=== PATIENT | male | born 1990 | race African-American/Black ===

== ENCOUNTER 2021-10-19 11:46 | Emergency (ER) | payer MEDICAID ==
[~2021-10-19] VITALS: Ht 175.3 cm; Wt 65.8 kg
[~2021-10-19 11:46] MED LIST: CEPH-570 PO; ERGO500040 PO; FOLIC ACID PO; HYDR-4354 PO; LACT1CAP57 PO; METH4TAB21 PO
[2021-10-19] MEDS ORDERED: KETOROLAC TROMETHAMINE 30 MG INJ IVP ONE (12:15)
[2021-10-19] MEDS ORDERED: IV NS 1000 ML 1,000 ML IV ONE (12:15)
[2021-10-19] MEDS ORDERED: HYDROMORPHONE 1 MG/1 ML DISP.SYRIN IV ONE ×2 (12:15→14:00)
[2021-10-19] MEDS ORDERED: KETOROLAC TROMETHAMINE 30 MG INJ ONE (12:16)
[2021-10-19] MEDS ORDERED: HYDROMORPHONE 2 MG/1 ML DISP.SYRIN ONE ×2 (12:16→14:58)
[2021-10-19] MEDS ORDERED: ONDANSETRON 4 MG/2 ML VIAL ONE ×2 (12:25→14:58)
[2021-10-19 12:34] LABS: MEAN CORPUSCULAR HEMOGLOBIN 34.1 uug (23.8-33.4); PLATELET COUNT (AUTO) 287 K/uL (152-348)
[2021-10-19 12:44] LABS: ALANINE AMINOTRANSFERASE 78 U/L (16-63); ALKALINE PHOSPHATASE 109 U/L (50-136); ASPARTATE AMINOTRANSFERASE 108 U/L (15-37); BILIRUBIN,DIRECT 0.5 mg/dL (0.0-0.2); BILIRUBIN,TOTAL 3.8 mg/dL (0.2-1.0); CARBON DIOXIDE 27 mmol/L (21-32); CHLORIDE 104 mmol/L (98-107); CREATININE 0.6 mg/dL (0.6-1.3); GLUCOSE 87 mg/dL (74-106); POTASSIUM 3.7 mmol/L (3.5-5.1); TOTAL PROTEIN, SERUM 7.8 g/dL (6.4-8.2); UREA NITROGEN, BLOOD 8 mg/dL (7-18)
[2021-10-19] MEDS ORDERED: ONDANSETRON 4 MG/2 ML VIAL IV ONE ×2 (12:45→14:30)
--- NOTE | 2021-10-19 14:30 | NUR ---
NS infusion finished.
--- NOTE | 2021-10-19 17:12 | NUR ---
SPO2 staying in mid 90's. Removed IV intact, site okay, bandaged. Gave pt RX and d/c instructions, pt verbalized understanding.
[2021-10-20] MEDS ORDERED: OXYC30TA2 PO (16:29)
== END 2021-10-19 17:19 | disposition home or self-care (01) ==
LOC: ER 11:46
DX: D57.00 Hb-SS disease with crisis, unspecified (principal); Z91.014 Allergy to mammalian meats; D72.829 Elevated white blood cell count, unspecified
CPT/HCPCS: 99284; 96374; 96375; 96361; 80076; 80048; 85025; 36415; 96376; J1885; J2405 ×2; J1170 ×2; J7040; A4663

== ENCOUNTER 2021-10-20 16:05 | Inpatient (IN) | payer MEDICAID ==
[~2021-10-20] VITALS: Ht 175.3 cm; Wt 63.0 kg
[2021-10-20] MEDS ORDERED: OXYC30TA2 PO (16:29)
[2021-10-20] MEDS ORDERED: diphenhydrAMINE 50 MG/1 ML VIAL IV ONE (16:45)
[2021-10-20] MEDS ORDERED: IV NORMAL SALINE 1000 ML BAG IV ONE (16:45)
[2021-10-20] MEDS ORDERED: HYDROMORPHONE 1 MG/1 ML DISP.SYRIN IV ONE (16:45)
[2021-10-20] MEDS ORDERED: ONDANSETRON 4 MG/2 ML VIAL IV ONE (16:45)
[2021-10-20] MEDS ORDERED: KETOROLAC TROMETHAMINE 15 MG INJ IVP ONE (16:45)
[2021-10-20] MEDS ORDERED: diphenhydrAMINE 50 MG/1 ML VIAL ONE (16:55)
[2021-10-20] MEDS ORDERED: KETOROLAC TROMETHAMINE 15 MG INJ ONE (16:55)
[2021-10-20] MEDS ORDERED: ONDANSETRON 4 MG/2 ML VIAL ONE (16:55)
[2021-10-20] MEDS ORDERED: HYDROMORPHONE 2 MG/1 ML DISP.SYRIN ONE (16:55)
[2021-10-20 16:56] LABS: MEAN CORPUSCULAR HEMOGLOBIN 34.6 uug (23.8-33.4); PLATELET COUNT (AUTO) 335 K/uL (152-348)
[2021-10-20 16:58] LABS: HEMATOCRIT 19.5 % (36.7-47.1)
[2021-10-20 17:00] LABS: ALANINE AMINOTRANSFERASE 63 U/L (16-63); ALKALINE PHOSPHATASE 108 U/L (50-136); ASPARTATE AMINOTRANSFERASE 97 U/L (15-37); BILIRUBIN,DIRECT 0.5 mg/dL (0.0-0.2); BILIRUBIN,TOTAL 3.3 mg/dL (0.2-1.0); CARBON DIOXIDE 23 mmol/L (21-32); CHLORIDE 104 mmol/L (98-107); CREATININE 0.7 mg/dL (0.6-1.3); GLUCOSE 96 mg/dL (74-106); POTASSIUM 3.8 mmol/L (3.5-5.1); TOTAL PROTEIN, SERUM 7.7 g/dL (6.4-8.2); UREA NITROGEN, BLOOD 6 mg/dL (7-18)
--- NOTE | 2021-10-20 17:51 | NUR ---
Soledad mesa in [facility] - 10/20/21 at 1752 by ADILENE pt taken to CT.
--- NOTE | 2021-10-20 20:40 | NUR ---
Transfered to 3rd floor via gurny with no distress noted.
--- NOTE | 2021-10-20 20:45 | NUR ---
Admitted a 31 years old make with Dx of COVID + and Sickle Cell Crisis. Patient AAOx4. In no apparent distress. Denies any SOB on RA but reported his oxygen level goes down when he takes Dilaudid although he does not feel SOB, also reported by TURBINE TECHNICIAN Ortega. O2 sat at 90% on RA at this time. Place on o2 at 2LPM via NC PRN. RT aware. Reported occasional dry cough. No coughing noted at this time. Complaining of leonel. LE and low back pain,. Will provide pain medication per admission order. IV site on right hand intact and patent. COVID precaution initiated. Routine admission care done. Plan of care initiated. Safety measure initiated and call light within reached.
[2021-10-20 20:47] VITALS: BP 112/69
[2021-10-20] MEDS ORDERED: ACETAMINOPHEN 325 MG TABLET PO PRN (21:00)
[2021-10-20] MEDS ORDERED: HYDROMORPHONE 1 MG/1 ML DISP.SYRIN IV PRN (21:00)
[2021-10-20] MEDS ORDERED: MAGNESIUM HYDROXIDE 30 ML LIQUID UDC PO PRN (21:00)
[2021-10-20] MEDS ORDERED: TEMAZEPAM 15 MG CAPSULE PO PRN (21:00)
[2021-10-20] MEDS ORDERED: HYDROCODONE/APAP 10-325 MG TABLET PO PRN (21:00)
[2021-10-20] MEDS: IV NS 1000 ML 1,000 ML IV PRN (21:16)
[2021-10-21] MEDS: HYDROMORPHONE 1 MG/1 ML DISP.SYRIN IV PRN ×2 (03:49→07:59)
[2021-10-21 04:00] VITALS: BP 104/61
--- NOTE | 2021-10-21 05:41 | NUR ---
Patient given Dilaudid 1mg every 3 hours PRN for pain and effective. On O2 at 2LPM via NC in place. O2 sat at 92%. Denies any SOB. No coughing noted. IV site on right hand intact and patent. IVF infusing. Needs attended to and met. Safety measure maintained. COVID precaution maintained and call light within reached.
[2021-10-21] MEDS: PANTOPRAZOLE SODIUM 40 MG TABLET.DR PO SCH (06:09)
[2021-10-21 07:10] LABS: PLATELET COUNT (AUTO) 288 K/uL (152-348)
[2021-10-21 07:12] LABS: MEAN CORPUSCULAR HEMOGLOBIN 35.6 uug (23.8-33.4)
[2021-10-21 07:28] LABS: IRON, SERUM 72 ug/dL (50-175)
[2021-10-21 07:43] LABS: ALANINE AMINOTRANSFERASE 63 U/L (16-63); ALKALINE PHOSPHATASE 105 U/L (50-136); ASPARTATE AMINOTRANSFERASE 91 U/L (15-37); CARBON DIOXIDE 25 mmol/L (21-32); CHLORIDE 105 mmol/L (98-107); CREATININE 0.8 mg/dL (0.6-1.3); FERRITIN 465 ng/mL (26-388); GLUCOSE 122 mg/dL (74-106); MAGNESIUM 1.8 mg/dL (1.8-2.4); PHOSPHOROUS 3.5 mg/dL (2.5-4.9); POTASSIUM 3.8 mmol/L (3.5-5.1); UREA NITROGEN, BLOOD 7 mg/dL (7-18)
[2021-10-21] MEDS: FOLIC ACID 1 MG TABLET PO SCH (08:13)
[2021-10-21] MEDS: IV NS 1000 ML 1,000 ML IV PRN ×2 (08:35→20:38)
[2021-10-21] MEDS: HYDROMORPHONE 2 MG/1 ML DISP.SYRIN IV PRN ×4 (11:00→23:02)
[2021-10-21 12:00] VITALS: BP 104/65
[2021-10-21] MEDS ORDERED: FOLI1TAB94 PO (13:48)
[2021-10-21] MEDS ORDERED: HYDR500C2 PO (13:54)
[2021-10-21 16:00] VITALS: BP 109/61
[2021-10-21 18:41] LABS: NEUTROPHILS % (MANUAL) 0 % (42-75)
--- NOTE | 2021-10-21 20:00 | NUR ---
RECEIVED PATIENT IN BED. AAOX4. WITH IV ACCESS PATENT AND INTACT AND RUNNING NS AT 80CC/HR. PATIENT ON 0.5L O2 VIA NASAL CANNULA, HOWEVER, NOTED TO BE SATURATING AT 90%. PATIENT DENIES SOB. INCREASED O2 TO 2L, PATIENT NOW SATURATING AT 98%. SAFETY PRECAUTIONS INITIATED. WILL MONITOR.
[2021-10-21 20:46] VITALS: BP 98/57
[2021-10-21 22:00] VITALS: BP_SYST 102; BP_SYST 65; BP_DIAS 102; BP_DIAS 65
[2021-10-21] MEDS: HYDROXYUREA 500 MG CAPSULE PO SCH (22:00)
--- NOTE | 2021-10-21 22:00 | NUR ---
NEW MEDICATION ORDER OF HYDROXYUREA 500MG 1 CAPSULE, PO, Q8H. NOT IN CASSETTE OR OMNICELL. ASKED PICK UP OPERATOR HOWEVER, PICK UP OPERATOR ADVISED THAT FAMILY SHOULD BE BRINGING HOME MED. WILL ADVISE FAMILY TOMORROW.
[2021-10-22] MEDS: HYDROMORPHONE 2 MG/1 ML DISP.SYRIN IV PRN ×5 (03:18→20:58)
[2021-10-22 04:55] VITALS: BP 113/64
[2021-10-22] MEDS: HYDROXYUREA 500 MG CAPSULE PO SCH ×3 (05:21→21:56)
--- NOTE | 2021-10-22 05:23 | NUR ---
PATIENT SLEPT INTERMITTENTLY THROUGH THE NIGHT, WITH FREQUENT COMPLAINT OF BACK PAIN AND LOWER LEG PAIN. PRN DILAUDID GIVEN AND WAS EFFECTIVE. IVF INFUSING WELL. ON 2L O2, SATURATING WELL. PATIENT DENIES SOB, CHEST PAIN OR DIZZINESS AT THIS TIME. SAFETY PRECAUTIONS MAINTAINED.
[2021-10-22] MEDS: PANTOPRAZOLE SODIUM 40 MG TABLET.DR PO SCH (06:06)
[2021-10-22 06:46] LABS: MEAN CORPUSCULAR HEMOGLOBIN 34.8 uug (23.8-33.4); MEAN CORPUSCULAR VOLUME 94.3 fL (73.0-96.2); PLATELET COUNT (AUTO) 262 K/uL (152-348)
[2021-10-22 07:02] LABS: ALANINE AMINOTRANSFERASE 72 U/L (16-63); ALKALINE PHOSPHATASE 119 U/L (50-136); ASPARTATE AMINOTRANSFERASE 89 U/L (15-37); BILIRUBIN,TOTAL 3.9 mg/dL (0.2-1.0); CARBON DIOXIDE 31 mmol/L (21-32); CHLORIDE 105 mmol/L (98-107); CREATININE 0.6 mg/dL (0.6-1.3); GLUCOSE 90 mg/dL (74-106); MAGNESIUM 1.8 mg/dL (1.8-2.4); POTASSIUM 3.6 mmol/L (3.5-5.1); TOTAL PROTEIN, SERUM 7.1 g/dL (6.4-8.2); UREA NITROGEN, BLOOD 4 mg/dL (7-18)
[2021-10-22 07:07] LABS: HEMATOCRIT 19.6 % (36.7-47.1)
--- NOTE | 2021-10-22 07:09 | NUR ---
CRITICAL LAB RESULTS FROM LAB HGB: 7.2 AND HCT: 19.6. WILL ADVISE INCOMING SHIFT AND .
[2021-10-22] MEDS: FOLIC ACID 1 MG TABLET PO SCH (08:24)
[2021-10-22] MEDS: IV NS 1000 ML 1,000 ML IV PRN ×2 (08:43→20:33)
[2021-10-22] MEDS: ONDANSETRON 4 MG/2 ML VIAL IV PRN ×2 (09:34→17:00)
--- NOTE | 2021-10-22 10:31 | NUR ---
Pt is a/o x 4, complaints of pain reported this morning, administered PRN dilaudid. Pt had an episode of emesis x 1, administered zofran and pt reported improved nausea, no emesis after medication. Comfort measures provided, call light within reach. Will continue to monitor.
[2021-10-22 11:00] VITALS: BP 132/72
[2021-10-22 16:00] VITALS: BP 119/70
--- NOTE | 2021-10-22 16:30 | NUR ---
Pt was agreeable to discharge home but then decided to stay another night with possible discharge in the morning.
[2021-10-22 20:52] VITALS: BP 116/64
[2021-10-23] MEDS: HYDROMORPHONE 2 MG/1 ML DISP.SYRIN IV PRN ×5 (00:59→20:36)
[2021-10-23] MEDS: ONDANSETRON 4 MG/2 ML VIAL IV PRN (01:05)
[2021-10-23] MEDS: HYDROXYUREA 500 MG CAPSULE PO SCH ×3 (05:07→21:27)
[2021-10-23 05:10] VITALS: BP 102/46
--- NOTE | 2021-10-23 05:31 | NUR ---
Slept intermittently. No distress noted. Given Dilaudud Q4H as requested, tolerated all medications well. Safety maintained throughout the shift. Will endorse to day shift.
[2021-10-23] MEDS: PANTOPRAZOLE SODIUM 40 MG TABLET.DR PO SCH (06:05)
[2021-10-23] MEDS: FOLIC ACID 1 MG TABLET PO SCH (09:10)
[2021-10-23] MEDS: IV NS 1000 ML 1,000 ML IV PRN (09:58)
[2021-10-23 12:11] VITALS: BP 116/45
[2021-10-23 16:07] VITALS: BP 112/69
[2021-10-23] MEDS: METOCLOPRAMIDE HCL 10 MG/2 ML VIAL IV SCH ×2 (18:26→21:27)
[2021-10-23 21:11] VITALS: BP 133/73
[2021-10-24] MEDS: HYDROMORPHONE 2 MG/1 ML DISP.SYRIN IV PRN ×4 (00:28→13:19)
[2021-10-24] MEDS: IV NS 1000 ML 1,000 ML IV PRN (00:33)
--- NOTE | 2021-10-24 04:20 | NUR ---
AAOx4 Needs attended. Admitted for Sickle Cell crisis. On pain management. Medicated with Dilaudid 2mg q4hrs as needed. No acute distress noted. IVF's infusing well. Voiding freely in the urinal. Will monitor patient. Possibe d/c today.
[2021-10-24 05:02] VITALS: BP 118/66
[2021-10-24] MEDS: METOCLOPRAMIDE HCL 10 MG/2 ML VIAL IV SCH ×2 (06:00→13:19)
[2021-10-24] MEDS: PANTOPRAZOLE SODIUM 40 MG TABLET.DR PO SCH (06:00)
[2021-10-24] MEDS: HYDROXYUREA 500 MG CAPSULE PO SCH ×2 (06:04→13:18)
--- NOTE | 2021-10-24 07:15 | NUR ---
RECEIVED PATIENT IN BED AWAKE ALERT AND ORIENTED WITH IVF ORDERED WITH NO S/SOF INFILTERATION ON SITEON BROOM AIR WITH NO S/S OF INFILTERATION ON SITE CALL LIGHT AND PERSONAL BELONGINGS ARE WITHIN EASY REACH AT THIS TIME WILL CONTINUE TO OBSERVE
[2021-10-24 07:34] LABS: ALANINE AMINOTRANSFERASE 51 U/L (16-63); ALKALINE PHOSPHATASE 120 U/L (50-136); ASPARTATE AMINOTRANSFERASE 65 U/L (15-37); BILIRUBIN,TOTAL 3.7 mg/dL (0.2-1.0); CARBON DIOXIDE 28 mmol/L (21-32); CHLORIDE 103 mmol/L (98-107); CREATININE 0.7 mg/dL (0.6-1.3); GLUCOSE 94 mg/dL (74-106); MAGNESIUM 1.6 mg/dL (1.8-2.4); POTASSIUM 3.7 mmol/L (3.5-5.1); TOTAL PROTEIN, SERUM 7.4 g/dL (6.4-8.2); UREA NITROGEN, BLOOD 9 mg/dL (7-18)
[2021-10-24 07:49] LABS: MEAN CORPUSCULAR HEMOGLOBIN 34.3 uug (23.8-33.4); MEAN CORPUSCULAR VOLUME 95.1 fL (73.0-96.2); PLATELET COUNT (AUTO) 290 K/uL (152-348)
[2021-10-24] MEDS: FOLIC ACID 1 MG TABLET PO SCH (08:23)
--- NOTE | 2021-10-24 09:04 | NUR ---
PATIENT STATED HAVING GENERALISED PAIN MEDICATED WITH DILAUDID ORDERED MADE COMFORTABLE WILL CONTINUE TO OBSERVE.
[2021-10-24] MEDS ORDERED: MAGNESIUM SULFATE/D5W 100 ML IV SCH (09:30)
--- NOTE | 2021-10-24 09:59 | NUR ---
CALL RECEIVED FROM DR GUZMAN WITH ORDER TO SWITCH THE MAGNESSIUM FROM IV TO PO 800 MG ONE TIME AND NOTED
[2021-10-24] MEDS ORDERED: MAGNESIUM OXIDE 400 MG TABLET PO ONE (10:00)
[2021-10-24 11:18] VITALS: BP 124/71
--- NOTE | 2021-10-24 14:07 | NUR ---
PATIENT SEEN AND EXAMINED BY DR CHANDRA SPOKE WITH HIM AND HE IS AGREEABLE TO BE DISCHARGED TODAY BUT DR CHANDRA STATED TO GIVE HIM HIS DUE DILAUDID BEFORE DISCHARGE WILL ADMINISTER ORDERED.
--- NOTE | 2021-10-24 14:19 | NUR ---
DISCHARGE ORDERS HAS BEEN FINALISED BY DR GUZMAN WILL DISCHARGE PAIN SOON POSSIBLE.
--- NOTE | 2021-10-24 15:30 | NUR ---
PATIENT DISCHARGED WITH DISCHARGE INSTRUCTIONS ALL HIS PERSONAL BELONGINGS AND HIS HOME MEDICATIONS FROM THE [facility].PATIENT INSTRUCTED TO CALL FOR A FOLLOW UP APPOINTMENT WITH HIS PRIMARY DOCTOR AND HE EXPRESSED UNDERSTANDING PATIENT HAS HIS CAR HERE AT [facility] [address].
== END 2021-10-24 15:25 | disposition home or self-care (01) | DRG 662 ==
LOC: ER 16:07 → MEDSURG3 20:28 → TELE3 20:54 → MEDSURG3 21:30
PROVIDERS: ADMIT Internal Medicine; ATTEND Internal Medicine
DX: D57.00 Hb-SS disease with crisis, unspecified (principal); U07.1 COVID-19; D72.829 Elevated white blood cell count, unspecified; D64.9 Anemia, unspecified
CPT/HCPCS: 36415; 70030-TC; 71045; 83550; 83735; 84100; 84484; 85025; 86850; 86870; 86900; 86901; 93005; A4663; G0378; J1170; J1200; J1885; J2405; J2765; J7040

== ENCOUNTER 2021-10-30 16:47 | Emergency (ER) | payer MEDICAID ==
[~2021-10-30] VITALS: Ht 175.3 cm; Wt 68.0 kg
[~2021-10-30 16:47] MED LIST changes: -CEPH-570 PO; +FOLI1TAB94 PO; -FOLIC ACID PO; +HYDR500C2 PO; -LACT1CAP57 PO; -METH4TAB21 PO; +OXYC30TA2 PO
[2021-10-30] MEDS ORDERED: HYDROMORPHONE 2 MG/1 ML DISP.SYRIN ONE ×3 (17:25→21:53)
[2021-10-30] MEDS ORDERED: diphenhydrAMINE 25 MG/10 ML UDC ONE (17:26)
[2021-10-30] MEDS ORDERED: diphenhydrAMINE 50 MG/1 ML VIAL ONE ×2 (17:27→19:11)
[2021-10-30] MEDS ORDERED: ONDANSETRON 4 MG/2 ML VIAL ONE (17:27)
[2021-10-30] MEDS ORDERED: KETOROLAC TROMETHAMINE 30 MG INJ ONE (17:28)
[2021-10-30] MEDS ORDERED: ONDANSETRON 4 MG/2 ML VIAL IV ONE (17:30)
[2021-10-30] MEDS ORDERED: KETOROLAC TROMETHAMINE 30 MG INJ IVP ONE (17:30)
[2021-10-30] MEDS ORDERED: IV NORMAL SALINE 1000 ML BAG IV ONE (17:30)
[2021-10-30] MEDS ORDERED: diphenhydrAMINE 50 MG/1 ML VIAL IV ONE ×2 (17:30→19:15)
[2021-10-30] MEDS ORDERED: HYDROMORPHONE 1 MG/1 ML DISP.SYRIN IV ONE ×3 (17:30→21:45)
--- NOTE | 2021-10-30 17:30 | NUR ---
MEDICATED WITH ZOFRAN, BENADRYL, TORODOL AND DILAUDID 2 MG IVP/PLACED ON PULSE OX FOR MONITORING AND THE PATIENT WILL BE TRANSFER TO 3 WHEN ROOM IS CLEAN.
--- NOTE | 2021-10-30 17:30 | NUR ---
IN ED WITH REPORT OF SCC, ONSET THIS AM AT 0600: PAIN IN BILAT BETTENCOURT AND LOWER BACK
[2021-10-30 17:37] LABS: CARBON DIOXIDE 27 mmol/L (21-32); CHLORIDE 103 mmol/L (98-107); CREATININE 0.8 mg/dL (0.6-1.3); GLUCOSE 103 mg/dL (74-106); POTASSIUM 4.9 mmol/L (3.5-5.1); UREA NITROGEN, BLOOD 6 mg/dL (7-18)
[2021-10-30 17:43] LABS: ALANINE AMINOTRANSFERASE 33 U/L (16-63); ALKALINE PHOSPHATASE 95 U/L (50-136); ASPARTATE AMINOTRANSFERASE 63 U/L (15-37); BILIRUBIN,DIRECT 0.4 mg/dL (0.0-0.2); BILIRUBIN,TOTAL 2.8 mg/dL (0.2-1.0); TOTAL PROTEIN, SERUM 7.7 g/dL (6.4-8.2)
[2021-10-30 17:45] LABS: HEMATOCRIT 20.4 % (36.7-47.1); MEAN CORPUSCULAR HEMOGLOBIN 35.3 uug (23.8-33.4); MEAN CORPUSCULAR VOLUME 97.8 fL (73.0-96.2); PLATELET COUNT (AUTO) 368 K/uL (152-348)
--- NOTE | 2021-10-30 19:10 | NUR ---
PATIENT IN ROOM 3 ON MONITOR NSR PER CM.
[2021-10-30] MEDS ORDERED: IV NS 1000 ML 1,000 ML IV ONE (19:15)
--- NOTE | 2021-10-30 19:21 | NUR ---
ABN LABS REVIEWED, ANEMIA,REPORTS COMPLAINT WITH MEDICATIONS.
--- NOTE | 2021-10-30 19:44 | NUR ---
VERBALIZED SOME RELIEF WITH DILAUDID, BUT REPORTS WITH MOVEMENT PAIN RETURNS NOTIFY PHYSICIAN NOTIFIED AND ROUNDING ON PATIENT.
--- NOTE | 2021-10-30 22:11 | NUR ---
MAP D/C WITH CATH INTACT.
--- NOTE | 2021-10-30 22:16 | NUR ---
PATIENT AWAITING RIDE, DISCHARGE INSTRUCTIONS GIVEN TO HIM BY MONIK VAN, VSS.VERBALIZED UNDERSTANDING OF D/C INSTRUCTIONS AND F/U WITH PCP.
--- NOTE | 2021-10-30 22:26 | NUR ---
MED WITH DILAUDID 2 MG IVP AND THE PATIENT VERBALIZED [id number]. ULISSESE CALLED AGAIN BY PT.
[2021-10-30 23:18] VITALS: BP 118/80
== END 2021-10-30 23:18 | disposition home or self-care (01) ==
LOC: ER 16:47
DX: D57.00 Hb-SS disease with crisis, unspecified (principal); Z20.822 Contact with and (suspected) exposure to COVID-19
CPT/HCPCS: 36415; 85025; J1170; J1200; J1885; J2405; J7040; Q0163

== ENCOUNTER 2022-01-05 10:29 | Emergency (ER) | payer MEDICAID ==
[~2022-01-05] VITALS: Ht 175.3 cm; Wt 63.5 kg
[2022-01-05] MEDS ORDERED: HYDROMORPHONE 1 MG/1 ML DISP.SYRIN IV ONE ×2 (11:00→12:15)
[2022-01-05] MEDS ORDERED: KETOROLAC TROMETHAMINE 15 MG INJ IVP ONE (11:00)
[2022-01-05] MEDS ORDERED: IV NORMAL SALINE 500 ML BAG IV ONE (11:00)
[2022-01-05] MEDS ORDERED: KETOROLAC TROMETHAMINE 15 MG INJ ONE (11:02)
[2022-01-05] MEDS ORDERED: HYDROMORPHONE 2 MG/1 ML DISP.SYRIN ONE ×2 (11:02→12:05)
--- NOTE | 2022-01-05 11:19 | NUR ---
Pt arrived with c/o generalized pain, manifested guarding, grasping of the sites, moaning and facial grimacing. Pt has a hx of sickle cell anemia, O2 sat is 92% on room air. Pt is placed on O2 therapy, 2L/min with 97% O2 sat. Denies n/v, afebrile. Seen by TAYLOR for MSE.
[2022-01-05 11:30] LABS: HEMATOCRIT 22.8 % (36.7-47.1); MEAN CORPUSCULAR HEMOGLOBIN 34.2 uug (23.8-33.4); MEAN CORPUSCULAR VOLUME 90.9 fL (73.0-96.2); PLATELET COUNT (AUTO) 378 K/uL (152-348)
[2022-01-05 11:39] LABS: CARBON DIOXIDE 26 mmol/L (21-32); CHLORIDE 107 mmol/L (98-107); CREATININE 0.6 mg/dL (0.6-1.3); GLUCOSE 93 mg/dL (74-106); POTASSIUM 4.2 mmol/L (3.5-5.1); UREA NITROGEN, BLOOD 6 mg/dL (7-18)
[2022-01-05 11:44] LABS: ALANINE AMINOTRANSFERASE 32 U/L (16-63); ALKALINE PHOSPHATASE 99 U/L (50-136); ASPARTATE AMINOTRANSFERASE 101 U/L (15-37); BILIRUBIN,TOTAL 5.3 mg/dL (0.2-1.0); TOTAL PROTEIN, SERUM 7.4 g/dL (6.4-8.2)
[2022-01-05] MEDS ORDERED: ONDANSETRON 4 MG/2 ML VIAL IV ONE (12:00)
[2022-01-05] MEDS ORDERED: ONDANSETRON 4 MG/2 ML VIAL ONE (12:05)
--- NOTE | 2022-01-05 13:51 | NUR ---
Pt in stable condition. V/S are WNL. No SOB, breathing even and unlabored. Pt rated pain 2/10, denied n/v, headache. Pt discharged to home. Written and verbal after care instructions given. Pt verbalizes understanding of instructions. Stressed follow up or return to ER for worsening s/s.
[2022-01-05 13:53] VITALS: BP 125/76
[2022-01-06 04:44] LABS: BAND % (MANUAL) 4 % (0-10); LYMPHOCYTES % (MANUAL) 45 % (20-40); NEUTROPHILS % (MANUAL) 39 % (42-75)
[2022-01-06 04:45] LABS: BASOPHILS % (MANUAL) 0 % (0-2); EOSINOPHILS % (MANUAL) 4 % (0-8); MONOCYTES % (MANUAL) 8 % (2-10)
== END 2022-01-05 14:25 | disposition home or self-care (01) ==
LOC: ER 10:29
DX: D57.00 Hb-SS disease with crisis, unspecified (principal); Z91.014 Allergy to mammalian meats
CPT/HCPCS: 99284; 86870; 96374; 96375; 96361; 80053; 85025; 85044; 86850; 86900; 86901; 36415; 96376; 85007; J1885; J2405; J1170 ×2; J7040; 70030-TC; A4663

== ENCOUNTER 2022-01-12 00:23 | Inpatient (IN) | payer MEDICAID ==
[~2022-01-12] VITALS: Ht 175.3 cm; Wt 63.5 kg
--- NOTE | 2022-01-12 02:00 | NUR ---
Dr Gilbert at bedside, MSE in progress
[2022-01-12] MEDS ORDERED: IV NS 1000 ML 1,000 ML IV ONE (02:15)
[2022-01-12] MEDS ORDERED: HYDROMORPHONE 1 MG/1 ML DISP.SYRIN IV ONE ×4 (02:15→12:45)
[2022-01-12] MEDS ORDERED: ONDANSETRON 4 MG/2 ML VIAL IV ONE (02:15)
[2022-01-12] MEDS ORDERED: ONDANSETRON 4 MG/2 ML VIAL ONE ×2 (02:18→08:42)
[2022-01-12] MEDS ORDERED: HYDROMORPHONE 2 MG/1 ML DISP.SYRIN ONE ×3 (02:18→08:42)
--- NOTE | 2022-01-12 02:22 | NUR ---
Pt. on bed, AOX4, SL 20 g on R hand placed, labs collected, Xray is currently being done.
[2022-01-12] MEDS ORDERED: KETOROLAC TROMETHAMINE 30 MG INJ ONE (02:29)
[2022-01-12] MEDS ORDERED: KETOROLAC TROMETHAMINE 30 MG INJ IVP ONE (02:30)
--- NOTE | 2022-01-12 03:27 | NUR ---
Soledad mesa in ED - 01/12/22 at 0327 by JOCE called 3rd floor for bed. Spoke with Sam VAN. Will call me back
[2022-01-12 03:59] LABS: MEAN CORPUSCULAR HEMOGLOBIN 34.1 uug (23.8-33.4); MEAN CORPUSCULAR VOLUME 91.3 fL (73.0-96.2); PLATELET COUNT (AUTO) 336 K/uL (152-348)
[2022-01-12 04:08] LABS: BILIRUBIN,DIRECT 0.6 mg/dL (0.0-0.2); BILIRUBIN,TOTAL 6.6 mg/dL (0.2-1.0); CREATININE 0.9 mg/dL (0.6-1.3); TOTAL PROTEIN, SERUM 7.4 g/dL (6.4-8.2)
[2022-01-12] MEDS ORDERED: CEFEPIME HCL 2 G in IV DEXTROSE 5% 100 ML IV ONE (04:30)
[2022-01-12] MEDS ORDERED: AZITHROMYCIN IV 500 MG in IV DEXTROSE 5% 250 ML IV ONE (04:30)
[2022-01-12] MEDS ORDERED: AZITHROMYCIN 500MG/ D5W 250ML IVPB **ER PYXIS ONLY IV ONE (04:39)
[2022-01-12] MEDS ORDERED: CEFEPIME HCL 1 G VIAL ONE (04:39)
[2022-01-12 04:43] LABS: *BILIRUBIN,URIN NEGATIVE (NEGATIVE); *BLOOD, URINE 1+ (NEGATIVE); *CLARITY,URINE CLEAR (CLEAR); *COLOR,URINE DARK YELLOW (YELLOW); *KETONES,URINE NEGATIVE (NEGATIVE); *UROBILINOGEN,URINE >=8.0 E.U./dl (NORMAL); LEUKOCYTE ESTERASE ,URINE NEGATIVE (NEGATIVE); NITRITE, URINE NEGATIVE (NEGATIVE); PH,URINE 5.5 (5.0-8.0); UGLUCOSE NEGATIVE (NEGATIVE)
--- NOTE | 2022-01-12 05:12 | NUR ---
Called [facility] for panel call.
--- NOTE | 2022-01-12 05:14 | NUR ---
Osmany Ramirez REFINERY OPERATOR called back, Peer to peer report with Dr. Gilbert
--- NOTE | 2022-01-12 05:14 | NUR ---
Pt. has been accepted by Osmany Ramirez NP.
--- NOTE | 2022-01-12 05:15 | NUR ---
Called 3rd floor for tele bed, spoke with Nasreen, was told pt. will be transferred to RM 305 tele AM shift.
--- NOTE | 2022-01-12 05:17 | NUR ---
Called 3rd floor again, spoke with Nasreen and was told to give report by 0645am and send pt to tele by 0700am.
--- NOTE | 2022-01-12 05:26 | NUR ---
No charge nurse in ER. Medications not reconciled
[2022-01-12] MEDS ORDERED: ACETAMINOPHEN 325 MG TABLET PO PRN (05:30)
[2022-01-12] MEDS ORDERED: HYDROMORPHONE 1 MG/1 ML DISP.SYRIN IV PRN (05:30)
[2022-01-12] MEDS ORDERED: IV NS 1000 ML 1,000 ML IV PRN (05:30)
[2022-01-12] MEDS ORDERED: REMEDY ESSENTIAL ZINC PASTE 113 GM TP PRN (05:30)
[2022-01-12] MEDS ORDERED: TEMAZEPAM 15 MG CAPSULE PO PRN (05:30)
[2022-01-12] MEDS ORDERED: ONDANSETRON 4 MG/2 ML VIAL IV PRN ×2 (05:30→09:00)
[2022-01-12] MEDS ORDERED: HYDROCODONE/APAP 10-325 MG TABLET PO PRN (05:30)
[2022-01-12] MEDS ORDERED: MAGNESIUM HYDROXIDE 30 ML LIQUID UDC PO PRN (05:30)
[2022-01-12] MEDS ORDERED: PANTOPRAZOLE SODIUM 40 MG TABLET.DR PO SCH (07:00)
--- NOTE | 2022-01-12 07:23 | NUR ---
1st contact with patient: AOx4, calm & breathing easily, comfortable at the moment, skin warm & dry, sinus rhythm on monitor. Patient is waiting for the assigned morning telemetry nurse (room 305) to call ER back for nursing report. OJN.
[2022-01-12 07:26] LABS: BACTERIA,URINE FEW /HPF (NONE SEEN); WBC,URINE 0-3 /HPF (0-3)
[2022-01-12 07:27] LABS: SQUAMOUS EPITHELIAL CELL,UR FEW /HPF (NONE SEEN)
[2022-01-12] MEDS: HYDROXYUREA 500 MG CAPSULE PO SCH ×2 (07:48→14:05)
[2022-01-12] MEDS ORDERED: PANTOPRAZOLE SODIUM 40 MG TABLET.DR PO ONE (07:48)
[2022-01-12] MEDS ORDERED: FOLIC ACID 1 MG TABLET ONE (08:12)
[2022-01-12] MEDS ORDERED: DOXYCYCLINE HYCLATE 100 MG TABLET ONE (08:12)
--- NOTE | 2022-01-12 08:31 | NUR ---
0816am: Patient wants to leave against medical advice, (ER doctor) Dr Lizarraga notified.
--- NOTE | 2022-01-12 08:32 | NUR ---
Patient changed his mind about signing AMA after talking to our ER doctor. I am attempting to give nursing report to 3rd floor staff again.
--- NOTE | 2022-01-12 08:32 | NUR ---
Soledad mesa in EDM - 01/12/22 at 0854 by DARRON Patient chnaged his mind about signing AMA after talking to our ER doctor. I am attempting to give nursing report to 3rd floor staff again.
[2022-01-12] MEDS ORDERED: KETOROLAC TROMETHAMINE 15 MG INJ ONE (08:42)
--- NOTE | 2022-01-12 08:48 | NUR ---
IV pain medicines (IV Toradol 15mg & 2mg IV Dilaudid) and IV Zofran 4 mg were given as ordered by Dr Lizarraga. 3rd floor staff cupola charger Merlie and Yoly were updated accordingly.
[2022-01-12] MEDS ORDERED: DOXYCYCLINE HYCLATE 100 MG TABLET PO SCH (09:00)
[2022-01-12] MEDS ORDERED: CEFEPIME HCL 1 G in IV DEXTROSE 5% 50 ML IV SCH ×2 (09:00→13:00)
[2022-01-12] MEDS ORDERED: KETOROLAC TROMETHAMINE 15 MG INJ IVP ONE (09:00)
[2022-01-12] MEDS ORDERED: HYDROMORPHONE 2 MG/1 ML DISP.SYRIN IV PRN ×2 (09:00→16:45)
[2022-01-12] MEDS ORDERED: FOLIC ACID 1 MG TABLET PO SCH (09:00)
--- NOTE | 2022-01-12 09:00 | NUR ---
Received this admission from ER per wheelchair with chief complaint of generalized body pain, with the diagnosis of sickle cell crisis. Transferred to bed comfortably. Routine admission care rendered. Awake, alert, oriented x 4, ambulatory. IVF started. Breakfast served, eating well.
[2022-01-12 09:38] VITALS: BP 103/52
[2022-01-12 10:26] LABS: BAND % (MANUAL) 4 % (0-10); LYMPHOCYTES % (MANUAL) 14 % (20-40); MONOCYTES % (MANUAL) 5 % (2-10); NEUTROPHILS % (MANUAL) 77 % (42-75)
--- NOTE | 2022-01-12 12:40 | NUR ---
Reports of generalized pain not relieved with Dilaudid 1 mg, another 1 mg IV given with relief.
[2022-01-12 15:53] VITALS: BP 125/90
--- NOTE | 2022-01-12 16:05 | NUR ---
With discharge order to home. Saline lock removed. DC instruction given to patient, verbalized understanding. Went home per ambulatory per request in fair condition, not in distress, afebrile.
== END 2022-01-12 16:05 | disposition home or self-care (01) | DRG 662 ==
LOC: ER 00:27 → TELE3 05:15 → MEDSURG3 09:03
PROVIDERS: ADMIT Internal Medicine; ATTEND Internal Medicine
DX: D57.09 Hb-SS disease with crisis with other specified complication (principal); D72.829 Elevated white blood cell count, unspecified; Z20.822 Contact with and (suspected) exposure to COVID-19; R74.01 Elevation of levels of liver transaminase levels; Z86.16 Personal history of COVID-19; D64.9 Anemia, unspecified; R07.89 Other chest pain
CPT/HCPCS: 36415; 70030-TC; 71045; 83605; 84484; 85025; 87040; 93005; A4663; G0378; J0456; J0692; J1170; J1885; J2405; J7040; J7050

== ENCOUNTER 2022-05-17 08:11 | Inpatient (IN) | payer MEDICAID, OTHER ==
[~2022-05-17] VITALS: Ht 175.3 cm; Wt 64.0 kg
[2022-05-17] MEDS ORDERED: IV NORMAL SALINE 1000 ML BAG IV ONE (08:30)
[2022-05-17] MEDS ORDERED: ONDANSETRON 4 MG/2 ML VIAL IV ONE (08:30)
[2022-05-17] MEDS ORDERED: KETOROLAC TROMETHAMINE 30 MG INJ IVP ONE (08:30)
[2022-05-17] MEDS ORDERED: diphenhydrAMINE 50 MG/1 ML VIAL IV ONE (08:30)
[2022-05-17] MEDS ORDERED: HYDROMORPHONE 1 MG/1 ML DISP.SYRIN IV ONE ×2 (08:30→10:45)
[2022-05-17] MEDS ORDERED: diphenhydrAMINE 50 MG/1 ML VIAL ONE (08:34)
[2022-05-17] MEDS ORDERED: ONDANSETRON 4 MG/2 ML VIAL ONE (08:35)
[2022-05-17] MEDS ORDERED: HYDROMORPHONE 2 MG/1 ML DISP.SYRIN ONE (08:35)
[2022-05-17] MEDS ORDERED: KETOROLAC TROMETHAMINE 30 MG INJ ONE (08:35)
[2022-05-17 08:38] LABS: MEAN CORPUSCULAR HEMOGLOBIN 33.9 uug (23.8-33.4); MEAN CORPUSCULAR VOLUME 92.5 fL (73.0-96.2); PLATELET COUNT (AUTO) 316 K/uL (152-348)
[2022-05-17 08:43] LABS: HEMATOCRIT 18.8 % (36.7-47.1)
[2022-05-17 08:51] LABS: CARBON DIOXIDE 23 mmol/L (21-32); CHLORIDE 105 mmol/L (98-107); CREATININE 0.6 mg/dL (0.6-1.3); GLUCOSE 90 mg/dL (74-106); POTASSIUM 4.1 mmol/L (3.5-5.1); UREA NITROGEN, BLOOD 8 mg/dL (7-18)
[2022-05-17] MEDS ORDERED: HYDROMORPHONE 1 MG/1 ML DISP.SYRIN ONE (10:17)
[2022-05-17] MEDS ORDERED: HYDROCODONE/APAP 5-325MG TABLET PO PRN (11:15)
[2022-05-17] MEDS ORDERED: ONDANSETRON 4 MG/2 ML VIAL IV PRN (11:15)
[2022-05-17] MEDS ORDERED: ACETAMINOPHEN 325 MG TABLET PO PRN (11:15)
[2022-05-17] MEDS ORDERED: REMEDY ESSENTIAL ZINC PASTE 113 GM TP PRN (11:15)
[2022-05-17] MEDS ORDERED: diphenhydrAMINE 25 MG CAP PO PRN (11:15)
[2022-05-17] MEDS ORDERED: MAGNESIUM HYDROXIDE 30 ML LIQUID UDC PO PRN (11:15)
[2022-05-17] MEDS: IV NS 1000 ML 1,000 ML IV PRN ×2 (11:38→23:52)
[2022-05-17 11:45] VITALS: BP 112/65
[2022-05-17] MEDS: FOLIC ACID 1 MG TABLET PO SCH (11:54)
[2022-05-17] MEDS: HYDROXYUREA 500 MG CAPSULE PO SCH ×2 (11:55→21:14)
[2022-05-17] MEDS: HYDROMORPHONE 1 MG/1 ML DISP.SYRIN IV PRN ×3 (15:06→23:48)
[2022-05-17 16:33] LABS: NEUTROPHILS % (MANUAL) 59 % (42-75)
[2022-05-17 16:34] LABS: BAND % (MANUAL) 1 % (0-10); EOSINOPHILS % (MANUAL) 4 % (0-8); LYMPHOCYTES % (MANUAL) 35 % (20-40); MONOCYTES % (MANUAL) 1 % (2-10)
[2022-05-17 16:58] VITALS: BP 106/62
[2022-05-17] MEDS: HYDROCODONE/APAP 10-325 MG TABLET PO PRN (18:56)
[2022-05-17 20:40] VITALS: BP 107/63
[2022-05-18] VITALS (7 sets, daily range): BP systolic 109–122; BP diastolic 62–75
[2022-05-18] MEDS: HYDROCODONE/APAP 10-325 MG TABLET PO PRN ×2 (02:18→11:10)
[2022-05-18] MEDS: HYDROMORPHONE 1 MG/1 ML DISP.SYRIN IV PRN ×6 (04:02→23:40)
[2022-05-18] MEDS: PANTOPRAZOLE SODIUM 40 MG TABLET.DR PO SCH (06:40)
[2022-05-18] MEDS: HYDROXYUREA 500 MG CAPSULE PO SCH ×3 (06:40→21:29)
[2022-05-18 08:01] LABS: MEAN CORPUSCULAR HEMOGLOBIN 32.1 uug (23.8-33.4); MEAN CORPUSCULAR VOLUME 90.7 fL (73.0-96.2); PLATELET COUNT (AUTO) 278 K/uL (152-348)
[2022-05-18] MEDS: FOLIC ACID 1 MG TABLET PO SCH (08:01)
[2022-05-18 08:12] LABS: CARBON DIOXIDE 25 mmol/L (21-32); CHLORIDE 106 mmol/L (98-107); CREATININE 0.6 mg/dL (0.6-1.3); GLUCOSE 89 mg/dL (74-106); MAGNESIUM 1.8 mg/dL (1.8-2.4); PHOSPHOROUS 3.6 mg/dL (2.5-4.9); UREA NITROGEN, BLOOD 4 mg/dL (7-18)
[2022-05-18 08:21] LABS: THYROID STIMULATING HORMONE 1.232 mIU/mL (0.358-3.740)
[2022-05-18 08:35] LABS: IRON, SERUM 54 ug/dL (50-175)
[2022-05-18 08:37] LABS: CHOLESTEROL 62 mg/dL (<200); HDL CHOLESTEROL 29 mg/dL (40-60); TRIGLYCERIDES 90 MG/DL (30-150)
[2022-05-18 16:41] LABS: BILIRUBIN,DIRECT 0.5 mg/dL (0.0-0.2); BILIRUBIN,TOTAL 3.4 mg/dL (0.2-1.0); TOTAL PROTEIN, SERUM 6.9 g/dL (6.4-8.2)
[2022-05-18] MEDS ORDERED: CEFTRIAXONE 1 G in IV DEXTROSE 5% 50 ML IV SCH (17:00)
[2022-05-18 19:56] LABS: *BILIRUBIN,URIN NEGATIVE (NEGATIVE); *CLARITY,URINE CLEAR (CLEAR); *COLOR,URINE YELLOW (YELLOW); *KETONES,URINE NEGATIVE (NEGATIVE); LEUKOCYTE ESTERASE ,URINE NEGATIVE (NEGATIVE); NITRITE, URINE NEGATIVE (NEGATIVE); UGLUCOSE NEGATIVE (NEGATIVE)
[2022-05-18 20:01] LABS: *BLOOD, URINE TRACE (NEGATIVE)
[2022-05-18 20:02] LABS: RBC,URINE 0-3 /HPF (0-3); WBC,URINE 0-3 /HPF (0-3)
[2022-05-18] MEDS: IV NS 1000 ML 1,000 ML IV PRN (23:22)
[2022-05-19] MEDS: HYDROMORPHONE 1 MG/1 ML DISP.SYRIN IV PRN ×4 (01:59→11:57)
[2022-05-19] MEDS: HYDROXYUREA 500 MG CAPSULE PO SCH (06:10)
[2022-05-19] MEDS: PANTOPRAZOLE SODIUM 40 MG TABLET.DR PO SCH (06:38)
[2022-05-19 07:06] LABS: HEMATOCRIT 23.1 % (36.7-47.1); MEAN CORPUSCULAR HEMOGLOBIN 33.1 uug (23.8-33.4); MEAN CORPUSCULAR VOLUME 89.9 fL (73.0-96.2); PLATELET COUNT (AUTO) 318 K/uL (152-348)
[2022-05-19 07:29] LABS: BILIRUBIN,DIRECT 0.5 mg/dL (0.0-0.2); BILIRUBIN,TOTAL 4.5 mg/dL (0.2-1.0); TOTAL PROTEIN, SERUM 7.4 g/dL (6.4-8.2)
[2022-05-19 08:00] VITALS: BP 134/86
[2022-05-19] MEDS: FOLIC ACID 1 MG TABLET PO SCH (08:17)
[2022-05-19 11:04] VITALS: BP 116/68
[2022-05-19 11:07] LABS: *IMMUNOGLOBULIN G, SERUM 1744 mg/dL (603-1613); HAPTOGLOBIN <10 mg/dL (17-317); IMMUNOGLOBULIN M, SERUM 73 mg/dL (20-172)
[2022-05-19] MEDS ORDERED: LEVO500T90 PO (12:42)
[2022-05-19 15:06] LABS: ALBUMIN 3.4 g/dL (2.9-4.4); ALPHA-1-GLOBULIN 0.2 g/dL (0.0-0.4); ALPHA-2-GLOBULIN 0.4 g/dL (0.4-1.0); BETA GLOBULIN 0.9 g/dL (0.7-1.3); GAMMA GLOBULIN 1.7 g/dL (0.4-1.8); GLOBULIN, TOTAL 3.3 g/dL (2.2-3.9); M-SPIKE Not Observed g/dL (Not Observed)
== END 2022-05-19 13:55 | disposition home or self-care (01) | DRG 662 ==
LOC: ER 08:11 → TELE3 10:18 → MEDSURG3 05-19 10:24
PROC: 30233N1 Transfusion of Nonautologous Red Blood Cells into Peripheral Vein, Percutaneous Approach (ICD-10-PCS; principal; 2022-05-18)
DX: D57.00 Hb-SS disease with crisis, unspecified (principal); D72.829 Elevated white blood cell count, unspecified; Z91.014 Allergy to mammalian meats; Z86.16 Personal history of COVID-19; Z79.64 Long term (current) use of myelosuppressive agent; Z87.01 Personal history of pneumonia (recurrent); Z20.822 Contact with and (suspected) exposure to COVID-19; D64.9 Anemia, unspecified
CPT/HCPCS: 36415; 70030-TC; 71045; 82747; 82784; 83010; 83550; 83615; 83735; 84100; 84155; 84165; 84443; 85014; 85025; 86334; 86850; 86900; 86901; 86920; 87040; 93005; A4663; G0378; J0696; J1170; J1200; J1885; J2405; J7040; P9016

== ENCOUNTER 2022-07-14 23:08 | Emergency (ER) | payer MEDICAID, OTHER ==
[~2022-07-14] VITALS: Ht 172.7 cm; Wt 67.6 kg
[~2022-07-14 23:08] MED LIST changes: -ERGO500040 PO; +LEVO500T90 PO
--- NOTE | 2022-07-14 23:26 | NUR ---
Patient placed in room 1B
--- NOTE | 2022-07-14 23:37 | NUR ---
Dr. Gutierrez evaluating patient at bedside. MSE in progress.
[2022-07-14] MEDS ORDERED: HYDROMORPHONE 1 MG/1 ML DISP.SYRIN IV ONE (23:45)
[2022-07-14] MEDS ORDERED: ONDANSETRON 4 MG/2 ML VIAL IV ONE (23:45)
[2022-07-14] MEDS ORDERED: KETOROLAC TROMETHAMINE 30 MG INJ IVP ONE (23:45)
[2022-07-15] MEDS ORDERED: KETOROLAC TROMETHAMINE 30 MG INJ ONE (00:06)
[2022-07-15] MEDS ORDERED: ONDANSETRON 4 MG/2 ML VIAL ONE (00:06)
[2022-07-15] MEDS ORDERED: HYDROMORPHONE 2 MG/1 ML DISP.SYRIN ONE ×2 (00:07→01:14)
[2022-07-15 00:17] LABS: PLATELET COUNT (AUTO) 283 K/uL (152-348)
[2022-07-15 00:40] LABS: HEMATOCRIT 20.9 % (36.7-47.1)
[2022-07-15 00:43] LABS: ALANINE AMINOTRANSFERASE 38 U/L (16-63); ALKALINE PHOSPHATASE 129 U/L (50-136); ASPARTATE AMINOTRANSFERASE 101 U/L (15-37); BILIRUBIN,DIRECT 0.5 mg/dL (0.0-0.2); BILIRUBIN,TOTAL 5.2 mg/dL (0.2-1.0); CARBON DIOXIDE 25 mmol/L (21-32); CHLORIDE 105 mmol/L (98-107); CREATININE 0.7 mg/dL (0.6-1.3); GLUCOSE 106 mg/dL (74-106); LIPASE 116 U/L (73-393); POTASSIUM 3.9 mmol/L (3.5-5.1); TOTAL PROTEIN, SERUM 7.8 g/dL (6.4-8.2); UREA NITROGEN, BLOOD 9 mg/dL (7-18)
[2022-07-15] MEDS ORDERED: HYDROMORPHONE 1 MG/1 ML DISP.SYRIN IV ONE (01:15)
--- NOTE | 2022-07-15 01:21 | NUR ---
Patient c/o 8/10 pain in bilateral lower extremities. Dilaudid 2mg IV given per Dr. Gutierrez's order.
--- NOTE | 2022-07-15 02:30 | NUR ---
Patient sleeping comfortably in sleep. No signs of distress noted.
--- NOTE | 2022-07-15 03:15 | NUR ---
Called [facility] ambulance to transpot patient back to [facility], ETA 20mins.
--- NOTE | 2022-07-15 06:12 | NUR ---
Patient discharged to home in stable condition. Written and verbal after care instructions given. Patient verbalizes understanding of instructions. Stressed follow up or return to ER for worsening s/s.
[2022-07-15 06:46] VITALS: BP 115/65
== END 2022-07-15 06:12 | disposition home or self-care (01) ==
LOC: ER 23:08
DX: M79.10 Myalgia, unspecified site (principal); G89.4 Chronic pain syndrome; F11.20 Opioid dependence, uncomplicated; Z86.2 Personal history of diseases of the blood and blood-forming organs and certain disorders involving the immune mechanism; Z79.2 Long term (current) use of antibiotics; Z79.899 Other long term (current) drug therapy; Z20.822 Contact with and (suspected) exposure to COVID-19
CPT/HCPCS: 99284; 86870; 80076; 80048; 83690; 85025; 86850; 86900; 86901; 36415; 96374; 96375; 87426; 96376; J1885; J2405; J1170 ×2; A4663

== ENCOUNTER 2022-07-16 17:12 | Inpatient (IN) | payer MEDICAID ==
[~2022-07-16] VITALS: Ht 172.7 cm; Wt 68.0 kg
[2022-07-16] MEDS ORDERED: HYDROMORPHONE 1 MG/1 ML DISP.SYRIN IM ONE (17:30)
[2022-07-16] MEDS ORDERED: KETOROLAC TROMETHAMINE 30 MG INJ IM ONE (17:30)
[2022-07-16] MEDS ORDERED: HYDROMORPHONE 2 MG/1 ML DISP.SYRIN ONE ×2 (17:37→19:19)
[2022-07-16] MEDS ORDERED: KETOROLAC TROMETHAMINE 30 MG INJ ONE (17:37)
--- NOTE | 2022-07-16 18:00 | NUR ---
ROGERIO LESTER AT BEDSIDE FOR MSE
[2022-07-16] MEDS ORDERED: HYDROMORPHONE 1 MG/1 ML DISP.SYRIN IV ONE (18:45)
[2022-07-16] MEDS ORDERED: diphenhydrAMINE 50 MG/1 ML VIAL ONE (19:19)
[2022-07-16 19:23] LABS: CARBON DIOXIDE 25 mmol/L (21-32); CHLORIDE 105 mmol/L (98-107); CREATININE 0.7 mg/dL (0.6-1.3); GLUCOSE 90 mg/dL (74-106); POTASSIUM 3.9 mmol/L (3.5-5.1); UREA NITROGEN, BLOOD 8 mg/dL (7-18)
[2022-07-16] MEDS ORDERED: diphenhydrAMINE 50 MG/1 ML VIAL IV ONE (19:30)
[2022-07-16 19:33] LABS: ALANINE AMINOTRANSFERASE 34 U/L (16-63); ALKALINE PHOSPHATASE 116 U/L (50-136); ASPARTATE AMINOTRANSFERASE 91 U/L (15-37); BILIRUBIN,DIRECT 0.5 mg/dL (0.0-0.2); BILIRUBIN,TOTAL 3.9 mg/dL (0.2-1.0); TOTAL PROTEIN, SERUM 7.3 g/dL (6.4-8.2)
[2022-07-16 19:36] LABS: MEAN CORPUSCULAR VOLUME 90.4 fL (73.0-96.2); PLATELET COUNT (AUTO) 262 K/uL (152-348)
[2022-07-16 19:38] LABS: HEMATOCRIT 18.7 % (36.7-47.1)
--- NOTE | 2022-07-16 20:30 | NUR ---
Dr. Gutierrez on panel call with Radha Ledesma NP.
[2022-07-16] MEDS ORDERED: REMEDY ESSENTIAL ZINC PASTE 113 GM TP PRN (21:15)
[2022-07-16] MEDS ORDERED: MAGNESIUM HYDROXIDE 30 ML LIQUID UDC PO PRN (21:15)
[2022-07-16] MEDS ORDERED: ACETAMINOPHEN 325 MG TABLET PO PRN (21:15)
[2022-07-16] MEDS: HYDROXYUREA 500 MG CAPSULE PO SCH (22:00)
--- NOTE | 2022-07-16 22:24 | NUR ---
Report given to Isabela VAN Medsurg.
[2022-07-16] MEDS: IV NS 1000 ML 1,000 ML IV PRN (23:20)
[2022-07-16 23:28] VITALS: BP 111/63
[2022-07-16] MEDS: HYDROMORPHONE 1 MG/1 ML DISP.SYRIN IV PRN (23:48)
[2022-07-17] MEDS ORDERED: Medication Not On Formulary EA (Oxycodone Hcl 1 TAB) PO SCH
--- NOTE | 2022-07-17 00:11 | NUR ---
RFeceived a 31 yr old male from ER with admitting diagnosis of sickle cell crisis. AAOx4 Ambulatory. All needs attended. VSS. On 2L via nasal cannula pulse ox 97%. Patient complained of pain on bilateral lower extremities and back . Patient on dilaudid 2mg IV q4hrs as needed. Awaiting for med to verify. Patient has a left antecubital # 20 g flushed and patent. Started on IV NSS @ 90cc/hr. Continent of bowel and bladder. last BM (07/16/22) Dilaudid 2mg given as needed with relief obtained. Will monitor patient. Hgb 7.0/Hct 18.7 Patient to be transfuse with 2 units when blood available. No acute distress noted. Patient already consented for blood.
[2022-07-17] MEDS: HYDROMORPHONE 1 MG/1 ML DISP.SYRIN IV PRN ×5 (03:57→21:52)
[2022-07-17 04:00] VITALS: BP 126/90
[2022-07-17] MEDS: HYDROXYUREA 500 MG CAPSULE PO SCH ×3 (05:12→21:17)
--- NOTE | 2022-07-17 05:29 | NUR ---
Hydrea 500 mg po not given @ 2200 and 0600 foreign student adviser aware and nursing subwarehouse supervisor aware, and it wont be available till this am because its a chemo drug and pharmacy not available till this am.
[2022-07-17 07:19] LABS: MEAN CORPUSCULAR HEMOGLOBIN 33.6 uug (23.8-33.4); PLATELET COUNT (AUTO) 239 K/uL (152-348)
[2022-07-17 07:37] LABS: CARBON DIOXIDE 25 mmol/L (21-32); CHLORIDE 106 mmol/L (98-107); CREATININE 0.7 mg/dL (0.6-1.3); GLUCOSE 82 mg/dL (74-106); MAGNESIUM 1.7 mg/dL (1.8-2.4); PHOSPHOROUS 3.9 mg/dL (2.5-4.9); UREA NITROGEN, BLOOD 8 mg/dL (7-18)
[2022-07-17 07:57] LABS: HEMATOCRIT 18.4 % (36.7-47.1)
--- NOTE | 2022-07-17 08:00 | NUR ---
Received a call from lab by Senthil and reported critical lab value of HGB 6.8 and it was reported to HOT DIE PRESS OPERATOR(Radha Ledesma) and she ordered 2units of blood transfusion. Waiting for [facility] to deliver the blood and then start the transfusion.
[2022-07-17] MEDS: FOLIC ACID 1 MG TABLET PO SCH (08:39)
[2022-07-17] MEDS: IV NS 1000 ML 1,000 ML IV PRN (11:30)
[2022-07-17 11:32] VITALS: BP 115/73
[2022-07-17] MEDS ORDERED: MAGNESIUM OXIDE 400 MG TABLET PO ONE (12:00)
[2022-07-17 13:30] LABS: BAND % (MANUAL) 0 % (0-10); LYMPHOCYTES % (MANUAL) 42 % (20-40); MONOCYTES % (MANUAL) 4 % (2-10); NEUTROPHILS % (MANUAL) 45 % (42-75)
[2022-07-17 13:31] LABS: BASOPHILS % (MANUAL) 0 % (0-2); BLASTS, MANUAL % 0 % (0-0); EOSINOPHILS % (MANUAL) 4 % (0-8); METAMYELOCYTES % 0 % (0-1); MYELOCYTES % 0 % (0-0); PROMYELOCYTES % 0 %; REACTIVE LYMPHOCYTES 5 % (0-0)
[2022-07-17 15:19] LABS: *BILIRUBIN,URIN NEGATIVE (NEGATIVE); *CLARITY,URINE CLEAR (CLEAR); *COLOR,URINE YELLOW (YELLOW); *KETONES,URINE NEGATIVE (NEGATIVE); LEUKOCYTE ESTERASE ,URINE NEGATIVE (NEGATIVE); NITRITE, URINE NEGATIVE (NEGATIVE); UGLUCOSE NEGATIVE (NEGATIVE)
[2022-07-17 15:23] LABS: *BLOOD, URINE TRACE (NEGATIVE)
[2022-07-17 15:42] LABS: BACTERIA,URINE FEW /HPF (NONE SEEN); CALCIUM CARBONATE CRYSTALS,UR NONE SEEN /HPF (NONE SEEN); CALCIUM OXALATE CRYSTALS,UR NONE SEEN /HPF (NONE SEEN); CALCIUM PHOSPHATE CRYSTALS,UR NONE SEEN /HPF (NONE SEEN); CYSTINE CRYSTALS,URINE NONE SEEN /HPF (NONE SEEN); RBC,URINE 0-3 /HPF (0-3); SQUAMOUS EPITHELIAL CELL,UR NONE SEEN /HPF (NONE SEEN); TRICHOMONAS,URINE NONE SEEN /HPF (NONE SEEN); TRIPLE PHOSPHATE CRYSTAL,UR NONE SEEN /HPF (NONE SEEN); TYROSINE CRYSTAL,URINE NONE SEEN /HPF (NONE SEEN); URIC ACID CRYSTALS,URINE NONE SEEN /HPF (NONE SEEN); URINE AMORPHOUS PHOSPHATES NONE SEEN /HPF; URINE AMORPHOUS URATE NONE SEEN /HPF; WBC,URINE 0-3 /HPF (0-3); YEAST,URINE NONE SEEN /HPF (NONE SEEN)
[2022-07-17 15:43] LABS: COARSE GRANULAR CASTS,URINE NONE SEEN /LPF; FATTY CASTS,URINE NONE SEEN /LPF (NONE SEEN); MUCUS,URINE FEW /LPF (0-FEW); RED BLOOD CELL CASTS,URINE NONE SEEN /LPF (NONE SEEN); SPERM,URINE NONE SEEN /HPF (NONE SEEN); WAXY CASTS,URINE NONE SEEN /LPF (NONE SEEN)
[2022-07-17 16:25] VITALS: BP 143/74
[2022-07-17] MEDS: KETOROLAC TROMETHAMINE 15 MG INJ IVP PRN ×2 (16:36→22:42)
--- NOTE | 2022-07-17 17:16 | NUR ---
Pt. has been stable during the shift. Contacted lab and talked with Beatrice if we have received the blood from [facility] and she said we are still waiting for and will endorse to next shift. Call light within reach. Urine sample dropped off at the lab. Will keep monitoring the patient.
--- NOTE | 2022-07-17 22:14 | NUR ---
Received report from am nurse Carlos patient wants pain medication every 3 hours talked with Radha Griffith she said no. Afterwards patient understood after I talked with him patient given medication as ordered and pt was given dilaudid 4mg for pain of 8 patient blood pressure is 135/80 no signs of distress noted. Will continue to monitor for safety.
[2022-07-18] VITALS (16 sets, daily range): BP systolic 114–132; BP diastolic 65–85
[2022-07-18] MEDS: HYDROMORPHONE 1 MG/1 ML DISP.SYRIN IV PRN ×2 (01:57→06:18)
--- NOTE | 2022-07-18 03:47 | NUR ---
Started the first unit of blood at 0053 vital signs wnl no signs of adverse reaction stayed with patient for 15minutes no adverse reaction noted.
--- NOTE | 2022-07-18 04:29 | NUR ---
NOTIFIED YARIEL FROM LAB ABOUT SECOND UNIT OF BLOOD AT 0358 SHE STATED"UNABLE TO GIVE ME THE SECOND UNIT OF BLOOD. SHE IS NOT AUTHORIZED TO GIVE BLOOD THE PERSON WHO HAS THE AUTHORITY TO GIVE BLOOD STARTS AT 0630 AND YOUR FIRST UNIT THE PERSON CAME FROM [facility]. WILL ENDORSE TO AM NURSE.
[2022-07-18] MEDS: HYDROXYUREA 500 MG CAPSULE PO SCH ×3 (06:17→22:16)
[2022-07-18] MEDS ORDERED: HYDROMORPHONE 2 MG/1 ML DISP.SYRIN IV PRN (06:45)
[2022-07-18 07:30] LABS: CARBON DIOXIDE 28 mmol/L (21-32); CHLORIDE 106 mmol/L (98-107); CREATININE 0.7 mg/dL (0.6-1.3); GLUCOSE 90 mg/dL (74-106); MAGNESIUM 1.9 mg/dL (1.8-2.4); POTASSIUM 4.1 mmol/L (3.5-5.1); UREA NITROGEN, BLOOD 10 mg/dL (7-18)
[2022-07-18] MEDS: IV NS 1000 ML 1,000 ML IV PRN ×2 (07:42→23:18)
[2022-07-18 07:52] LABS: MEAN CORPUSCULAR HEMOGLOBIN 33.2 uug (23.8-33.4); MEAN CORPUSCULAR VOLUME 90.4 fL (73.0-96.2); PLATELET COUNT (AUTO) 236 K/uL (152-348)
[2022-07-18 08:10] LABS: HEMATOCRIT 20.7 % (36.7-47.1)
[2022-07-18] MEDS: FOLIC ACID 1 MG TABLET PO SCH (08:24)
[2022-07-18] MEDS: CALCIUM CARB/VITAMIN D 500MG-200UNITS TABLET PO SCH (08:40)
--- NOTE | 2022-07-18 10:20 | NUR ---
Blood transfusion started. Discussed with patient s/s of blood tx reactions. Pt verbalized understanding and able to repeat s/s of blood tx reactions - back pain, sob, redness, itching. Pt is in no acute distress. Will monitor pt for any reaction.
--- NOTE | 2022-07-18 11:00 | NUR ---
No reaction noted first 40 mins of transfusion. will continue to monitor patient.
[2022-07-18] MEDS: HYDROMORPHONE 2 MG/1 ML DISP.SYRIN IV PRN ×4 (13:02→23:12)
--- NOTE | 2022-07-18 14:20 | NUR ---
Pt is in no acute distress. No reaction from blood tx noted. Pt tolerated transfusion.
[2022-07-18] MEDS: ONDANSETRON 4 MG/2 ML VIAL IV PRN (18:13)
--- NOTE | 2022-07-18 18:19 | NUR ---
Pt vomited large amount of undigested food. Zofran given for n/v.
--- NOTE | 2022-07-18 18:46 | NUR ---
[facility] states that theres 4 units of PRBC that needs to be transfused. Verified with CAROLYN TAYLOR that we only need 2 units or PRBC to be transfused.
[2022-07-19] MEDS: ONDANSETRON 4 MG/2 ML VIAL IV PRN ×2 (00:13→14:11)
[2022-07-19 04:00] VITALS: BP 111/58
[2022-07-19] MEDS: HYDROMORPHONE 2 MG/1 ML DISP.SYRIN IV PRN ×6 (04:44→21:00)
[2022-07-19] MEDS: HYDROXYUREA 500 MG CAPSULE PO SCH ×3 (06:01→22:00)
--- NOTE | 2022-07-19 06:24 | NUR ---
Slept intermittently, no acute distress noted. Medicated for pain as ordered. KARON midline intact and patent with IVF infusing well. Needs assessed and attended to.
[2022-07-19 06:48] LABS: CARBON DIOXIDE 30 mmol/L (21-32); CHLORIDE 100 mmol/L (98-107); CREATININE 0.7 mg/dL (0.6-1.3); GLUCOSE 97 mg/dL (74-106); POTASSIUM 3.9 mmol/L (3.5-5.1); UREA NITROGEN, BLOOD 10 mg/dL (7-18)
[2022-07-19 06:54] LABS: HEMATOCRIT 24.2 % (36.7-47.1); MEAN CORPUSCULAR HEMOGLOBIN 30.5 uug (23.8-33.4); MEAN CORPUSCULAR VOLUME 83.4 fL (73.0-96.2); PLATELET COUNT (AUTO) 235 K/uL (152-348)
[2022-07-19] MEDS: CALCIUM CARB/VITAMIN D 500MG-200UNITS TABLET PO SCH (07:51)
[2022-07-19] MEDS: FOLIC ACID 1 MG TABLET PO SCH (07:52)
[2022-07-19 12:00] VITALS: BP 128/67
[2022-07-19 16:00] VITALS: BP 121/52
--- NOTE | 2022-07-19 18:00 | NUR ---
Pt's pain managed with Dilaudid as ordered. PT will attempt to take norco tonight to try and taper his pain meds for possible d/c home as discussed between hospitalist and Patient.
[2022-07-19 20:00] VITALS: BP 136/69
--- NOTE | 2022-07-19 21:00 | NUR ---
AOx4. Pt complaining of 8/10 pain on lower back. Dilaudid given as ordered. Pt agreed to switch to [place] if pain persist the rest of the night. Will continue to monitor.
--- NOTE | 2022-07-19 22:04 | NUR ---
Hydrea medication unavailable within the hospital.
--- NOTE | 2022-07-19 22:54 | NUR ---
Received report from outgoing nurse for continuance of care.
[2022-07-20] MEDS: IV NS 1000 ML 1,000 ML IV PRN (03:43)
[2022-07-20 04:00] VITALS: BP 137/77
[2022-07-20] MEDS: HYDROCODONE/APAP 10-325 MG TABLET PO PRN ×2 (04:41→15:13)
--- NOTE | 2022-07-20 04:45 | NUR ---
Complaining of pain this time, offered [place] as ordered, agreed. Asking if he can take 2 tablets instead. Explained to try 1 tab first then if not helping then we can notify doctor. Will monitor.
[2022-07-20] MEDS: HYDROXYUREA 500 MG CAPSULE PO SCH ×2 (06:00→15:12)
[2022-07-20] MEDS: HYDROMORPHONE 2 MG/1 ML DISP.SYRIN IV PRN (09:49)
[2022-07-20] MEDS: FOLIC ACID 1 MG TABLET PO SCH (09:50)
[2022-07-20] MEDS: CALCIUM CARB/VITAMIN D 500MG-200UNITS TABLET PO SCH (09:50)
--- NOTE | 2022-07-20 10:00 | NUR ---
RCVD PT IN BED AAOX4. MEDS GIVEN AND TOLERATED WELL. PT COMPLAIN OF PAIN, PAIN MEDS GIVEN.
[2022-07-20 11:13] LABS: HEMATOCRIT 24.9 % (36.7-47.1); MEAN CORPUSCULAR HEMOGLOBIN 29.6 uug (23.8-33.4); MEAN CORPUSCULAR VOLUME 81.4 fL (73.0-96.2); PLATELET COUNT (AUTO) 286 K/uL (152-348)
[2022-07-20 11:29] LABS: CARBON DIOXIDE 28 mmol/L (21-32); CHLORIDE 101 mmol/L (98-107); CREATININE 0.7 mg/dL (0.6-1.3); GLUCOSE 89 mg/dL (74-106); UREA NITROGEN, BLOOD 12 mg/dL (7-18)
[2022-07-20 12:00] VITALS: BP 122/73
[2022-07-20 16:00] VITALS: BP 106/58
--- NOTE | 2022-07-20 18:05 | NUR ---
PT D/C HOME. PICKED UP BY MARINA (FRIEND). ALL BELONGINGS ACCOUNTED FOR. PT. TEACHING PROVIDED. PT LEFT THE DISCHARGE PACKET IN THE BED SIDE. DISHARGE PACKET GIVEN KEPT NOW IN THE NURSE STATION.
== END 2022-07-20 18:00 | disposition home or self-care (01) | DRG 662 ==
LOC: ER 17:13 → MEDSURG3 22:38
PROVIDERS: ADMIT Nurse Practitioner Acute Care; ATTEND Nurse Practitioner Acute Care
PROC: 30233N1 Transfusion of Nonautologous Red Blood Cells into Peripheral Vein, Percutaneous Approach (ICD-10-PCS; principal; 2022-07-18)
DX: D57.00 Hb-SS disease with crisis, unspecified (principal); E83.51 Hypocalcemia; D63.8 Anemia in other chronic diseases classified elsewhere; Z90.49 Acquired absence of other specified parts of digestive tract; D72.829 Elevated white blood cell count, unspecified; R74.01 Elevation of levels of liver transaminase levels; G89.29 Other chronic pain; F11.20 Opioid dependence, uncomplicated; M54.50 Low back pain, unspecified; Z91.014 Allergy to mammalian meats; Z20.822 Contact with and (suspected) exposure to COVID-19
CPT/HCPCS: 36415; 70030-TC; 83735; 84100; 85025; 86850; 86870; 86900; 86901; 86920; A4663; G0378; J1170; J1200; J1885; J2405; J7040; P9016

== ENCOUNTER 2023-03-24 22:43 | Inpatient (IN) | payer MEDICAID ==
[~2023-03-24] VITALS: Ht 177.8 cm; Wt 65.8 kg
[~2023-03-24 22:43] MED LIST changes: -HYDR-4354 PO; -LEVO500T90 PO
[2023-03-24] MEDS ORDERED: HYDROMORPHONE 1 MG/1 ML DISP.SYRIN IV ONE (23:30)
[2023-03-24] MEDS ORDERED: ONDANSETRON 4 MG/2 ML VIAL IV ONE (23:30)
[2023-03-24] MEDS ORDERED: KETOROLAC TROMETHAMINE 15 MG INJ IVP ONE (23:30)
[2023-03-24] MEDS ORDERED: KETOROLAC TROMETHAMINE 15 MG INJ ONE (23:32)
[2023-03-24] MEDS ORDERED: ONDANSETRON 4 MG/2 ML VIAL ONE (23:32)
[2023-03-24] MEDS ORDERED: HYDROMORPHONE 2 MG/1 ML DISP.SYRIN ONE (23:32)
[2023-03-24] MEDS ORDERED: IV NORMAL SALINE 1000 ML BAG IV ONE (23:45)
[2023-03-24 23:48] LABS: ABG BASE EXCESS -4.7 mmol/L (-2.0-2.0); ABG HCO3 19.8 mmol/L (22.0-26.0); ABG PCO2 33.6 mmHg (35.0-48.0); ABG PH 7.389 (7.340-7.440); ABG PO2 66.4 mmHg (75.0-100.0); ABG SITE RIGHT RADIAL; ABG TOTAL HEMOGLOBIN 6.2 G/dL (14.0-18.0); AaDO2 93.2 mmHg; COHb 1.3 % (0.0-3.9); MetHb 1.1 % (0.0-1.5); O2Hb 67.3 % (94.0-97.0)
[2023-03-24 23:57] LABS: BASOPHILS # (AUTO) 0.1 K/UL (0.0-0.2); BASOPHILS % (AUTO) 0.5 % (0.0-2.0); DIFFERENTIAL COMMENT 0; EOSINOPHILS % (AUTO) 7.3 % (0.0-7.0); LYMPHOCYTES # (AUTO) 5.6 K/uL (0.8-4.8); LYMPHOCYTES % (AUTO) 40.3 % (20.5-51.5); MEAN CORPUSCULAR HEMOGLOBIN 31.3 uug (23.8-33.4); MEAN CORPUSCULAR HGB CONC 40 g/dL (32.5-36.3); MEAN CORPUSCULAR VOLUME 79.4 fL (73.0-96.2); MONOCYTES % (AUTO) 6.9 % (0.0-11.0); NEUTROPHILS # (AUTO) 6.2 K/uL (1.8-8.9); PLATELET COUNT (AUTO) 321 K/uL (152-348); RED CELL DISTRIBUTION WIDTH 27.7 % (12.1-16.2); WHITE BLOOD COUNT (AUTO) 13.9 K/uL (3.6-10.2)
[2023-03-25 00:04] LABS: RED BLOOD CELL COUNT(AUTO) 2.02 MIL/uL (4.06-5.63)
[2023-03-25 00:06] LABS: ALANINE AMINOTRANSFERASE 27 U/L (16-63); ALBUMIN 3.3 g/dL (3.4-5.0); ALKALINE PHOSPHATASE 102 U/L (50-136); ASPARTATE AMINOTRANSFERASE 90 U/L (15-37); BILIRUBIN,DIRECT 0.4 mg/dL (0.0-0.2); BILIRUBIN,TOTAL 3.3 mg/dL (0.2-1.0); CALCIUM 7.7 mg/dL (8.5-10.1); CARBON DIOXIDE 25 mmol/L (21-32); CHLORIDE 107 mmol/L (98-107); CREATININE 0.8 mg/dL (0.6-1.3); GLUCOSE 112 mg/dL (74-106); HEMATOCRIT 16.1 % (36.7-47.1); HEMOGLOBIN 6.3 g/dL (12.5-16.3); POTASSIUM 4.6 mmol/L (3.5-5.1); SODIUM SERUM 140 mmol/L (136-145); TOTAL PROTEIN, SERUM 7.1 g/dL (6.4-8.2); UREA NITROGEN, BLOOD 11 mg/dL (7-18)
[2023-03-25] MEDS ORDERED: IOHEXOL 350 100 ML INFUS..BTL ONE (00:37)
[2023-03-25] MEDS ORDERED: IV NORMAL SALINE 250 ML IV ONE (00:37)
[2023-03-25] MEDS ORDERED: SWABABLE VALVE TRANSFER SET EA MC ONE (00:37)
[2023-03-25] MEDS ORDERED: KETOROLAC TROMETHAMINE 15 MG INJ IVP ONE (00:45)
[2023-03-25] MEDS ORDERED: HYDROMORPHONE 1 MG/1 ML DISP.SYRIN IV ONE (00:45)
[2023-03-25] MEDS ORDERED: HYDROMORPHONE 2 MG/1 ML DISP.SYRIN ONE (00:48)
[2023-03-25] MEDS ORDERED: KETOROLAC TROMETHAMINE 15 MG INJ ONE (00:48)
[2023-03-25] MEDS ORDERED: MAGNESIUM HYDROXIDE 30 ML LIQUID UDC PO PRN (01:30)
[2023-03-25] MEDS ORDERED: REMEDY ESSENTIAL ZINC PASTE 113 GM TP PRN (01:30)
[2023-03-25] MEDS ORDERED: ACETAMINOPHEN 325 MG TABLET PO PRN (01:30)
[2023-03-25 01:58] LABS: ANISOCYTOSIS 2+; BASOPHILS % (MANUAL) 1 % (0-2); EOSINOPHILS % (MANUAL) 3 % (0-8); HYPOCHROMASIA 1+; LYMPHOCYTES % (MANUAL) 41 % (20-40); MONOCYTES % (MANUAL) 9 % (2-10); NEUTROPHILS % (MANUAL) 46 % (42-75); PLATELET ESTIMATE ADEQUATE
[2023-03-25] MEDS: HYDROCODONE/APAP 10-325 MG TABLET PO PRN ×2 (02:36→09:27)
[2023-03-25] MEDS: IV NS 1000 ML 1,000 ML IV PRN ×3 (03:18→20:43)
[2023-03-25] MEDS: HYDROMORPHONE 1 MG/1 ML DISP.SYRIN IV PRN ×5 (05:12→21:54)
[2023-03-25 05:30] VITALS: BP 112/68; TEMP 97.7; O2SAT 98
[2023-03-25] MEDS: PANTOPRAZOLE SODIUM 40 MG TABLET.DR PO SCH (06:51)
[2023-03-25] MEDS: ONDANSETRON 4 MG/2 ML VIAL IV PRN (09:26)
[2023-03-25 12:00] VITALS: TEMP 97.6
[2023-03-25 12:56] LABS: BASOPHILS # (AUTO) 0.1 K/UL (0.0-0.2); BASOPHILS % (AUTO) 0.9 % (0.0-2.0); EOSINOPHILS # (AUTO) 0.9 K/uL (0.0-0.7); EOSINOPHILS % (AUTO) 6.5 % (0.0-7.0); LYMPHOCYTES # (AUTO) 3.7 K/uL (0.8-4.8); LYMPHOCYTES % (AUTO) 25.9 % (20.5-51.5); MEAN CORPUSCULAR HEMOGLOBIN 29.9 uug (23.8-33.4); MEAN CORPUSCULAR HGB CONC 37 g/dL (32.5-36.3); MEAN CORPUSCULAR VOLUME 81.6 fL (73.0-96.2); MONOCYTES # (AUTO) 1.4 K/uL (0.1-1.30); MONOCYTES % (AUTO) 9.6 % (0.0-11.0); NEUTROPHILS # (AUTO) 8.1 K/uL (1.8-8.9); NEUTROPHILS % (AUTO) 57.1 % (38.5-71.5); PLATELET COUNT (AUTO) 291 K/uL (152-348); RED CELL DISTRIBUTION WIDTH 29.8 % (12.1-16.2); WHITE BLOOD COUNT (AUTO) 14.2 K/uL (3.6-10.2)
[2023-03-25 13:24] LABS: ALANINE AMINOTRANSFERASE 34 U/L (16-63); ALBUMIN 3.2 g/dL (3.4-5.0); ALKALINE PHOSPHATASE 105 U/L (50-136); ASPARTATE AMINOTRANSFERASE 89 U/L (15-37); BILIRUBIN,TOTAL 2.2 mg/dL (0.2-1.0); CALCIUM 7.9 mg/dL (8.5-10.1); CARBON DIOXIDE 25 mmol/L (21-32); CHLORIDE 110 mmol/L (98-107); CREATININE 0.8 mg/dL (0.6-1.3); GLUCOSE 110 mg/dL (74-106); MAGNESIUM 1.9 mg/dL (1.8-2.4); PHOSPHOROUS 3.1 mg/dL (2.5-4.9); POTASSIUM 4.7 mmol/L (3.5-5.1); SODIUM SERUM 142 mmol/L (136-145); TOTAL PROTEIN, SERUM 6.9 g/dL (6.4-8.2); UREA NITROGEN, BLOOD 8 mg/dL (7-18)
[2023-03-25 14:29] LABS: DIFFERENTIAL COMMENT 1; HEMATOCRIT 16.3 % (36.7-47.1)
[2023-03-25 16:08] VITALS: TEMP 98.2
[2023-03-25 20:00] VITALS: BP 107/57; TEMP 98; O2SAT 99
[2023-03-26] VITALS (15 sets, daily range): BP systolic 95–126; BP diastolic 47–83; TEMP 97.6–99; O2SAT 93–96
[2023-03-26] MEDS: HYDROMORPHONE 1 MG/1 ML DISP.SYRIN IV PRN ×6 (02:45→23:45)
[2023-03-26] MEDS: PANTOPRAZOLE SODIUM 40 MG TABLET.DR PO SCH (07:11)
[2023-03-26 09:03] LABS: BASOPHILS # (AUTO) 0.1 K/UL (0.0-0.2); BASOPHILS % (AUTO) 1.1 % (0.0-2.0); EOSINOPHILS # (AUTO) 0.6 K/uL (0.0-0.7); EOSINOPHILS % (AUTO) 4.6 % (0.0-7.0); LYMPHOCYTES # (AUTO) 3.8 K/uL (0.8-4.8); LYMPHOCYTES % (AUTO) 30.3 % (20.5-51.5); MEAN CORPUSCULAR HEMOGLOBIN 29.7 uug (23.8-33.4); MEAN CORPUSCULAR HGB CONC 37 g/dL (32.5-36.3); MEAN CORPUSCULAR VOLUME 80.5 fL (73.0-96.2); MONOCYTES # (AUTO) 1.3 K/uL (0.1-1.30); MONOCYTES % (AUTO) 10.4 % (0.0-11.0); NEUTROPHILS # (AUTO) 6.7 K/uL (1.8-8.9); NEUTROPHILS % (AUTO) 53.6 % (38.5-71.5); PLATELET COUNT (AUTO) 272 K/uL (152-348); RED CELL DISTRIBUTION WIDTH 28.4 % (12.1-16.2); WHITE BLOOD COUNT (AUTO) 12.5 K/uL (3.6-10.2)
[2023-03-26 09:13] LABS: DIFFERENTIAL COMMENT 1; HEMATOCRIT 18.6 % (36.7-47.1); RED BLOOD CELL COUNT(AUTO) 2.31 MIL/uL (4.06-5.63)
[2023-03-26 09:14] LABS: HEMOGLOBIN 6.8 g/dL (12.5-16.3)
[2023-03-26 09:19] LABS: CALCIUM 7.9 mg/dL (8.5-10.1); CARBON DIOXIDE 25 mmol/L (21-32); CHLORIDE 104 mmol/L (98-107); CREATININE 0.7 mg/dL (0.6-1.3); GLUCOSE 99 mg/dL (74-106); MAGNESIUM 1.7 mg/dL (1.8-2.4); PHOSPHOROUS 3.5 mg/dL (2.5-4.9); SODIUM SERUM 136 mmol/L (136-145); UREA NITROGEN, BLOOD 4 mg/dL (7-18)
[2023-03-26] MEDS: ONDANSETRON 4 MG/2 ML VIAL IV PRN ×2 (12:35→23:58)
[2023-03-26] MEDS: IV NS 1000 ML 1,000 ML IV PRN (17:31)
[2023-03-26 19:45] LABS: NEUTROPHILS % (MANUAL) 45 % (42-75)
[2023-03-26 19:46] LABS: BAND % (MANUAL) 4 % (0-10); EOSINOPHILS % (MANUAL) 6 % (0-8); LYMPHOCYTES % (MANUAL) 34 % (20-40); MONOCYTES % (MANUAL) 10 % (2-10)
[2023-03-26 19:47] LABS: ANISOCYTOSIS 3+; PLATELET ESTIMATE ADEQUATE
[2023-03-26 20:46] LABS: NEUTROPHILS % (MANUAL) 0 % (42-75)
[2023-03-27] VITALS: BP 106/57; TEMP 98.6; O2SAT 93
[2023-03-27] MEDS: IV NS 1000 ML 1,000 ML IV PRN (03:02)
[2023-03-27 04:00] VITALS: BP 110/60; TEMP 98.9; O2SAT 93
[2023-03-27 07:02] LABS: CALCIUM 8.1 mg/dL (8.5-10.1); CARBON DIOXIDE 26 mmol/L (21-32); CHLORIDE 105 mmol/L (98-107); CREATININE 0.6 mg/dL (0.6-1.3); GLUCOSE 92 mg/dL (74-106); MAGNESIUM 1.7 mg/dL (1.8-2.4); PHOSPHOROUS 3.1 mg/dL (2.5-4.9); POTASSIUM 3.9 mmol/L (3.5-5.1); SODIUM SERUM 139 mmol/L (136-145); UREA NITROGEN, BLOOD 4 mg/dL (7-18)
[2023-03-27] MEDS: HYDROMORPHONE 1 MG/1 ML DISP.SYRIN IV PRN ×2 (07:08→11:26)
[2023-03-27] MEDS: PANTOPRAZOLE SODIUM 40 MG TABLET.DR PO SCH (07:08)
[2023-03-27 07:39] LABS: BASOPHILS # (AUTO) 0.1 K/UL (0.0-0.2); BASOPHILS % (AUTO) 1.1 % (0.0-2.0); DIFFERENTIAL COMMENT 1; EOSINOPHILS # (AUTO) 0.5 K/uL (0.0-0.7); EOSINOPHILS % (AUTO) 4.7 % (0.0-7.0); HEMATOCRIT 21.2 % (36.7-47.1); HEMOGLOBIN 7.7 g/dL (12.5-16.3); LYMPHOCYTES # (AUTO) 2.4 K/uL (0.8-4.8); LYMPHOCYTES % (AUTO) 20.3 % (20.5-51.5); MEAN CORPUSCULAR HEMOGLOBIN 30.1 uug (23.8-33.4); MEAN CORPUSCULAR HGB CONC 36 g/dL (32.5-36.3); MEAN CORPUSCULAR VOLUME 82.7 fL (73.0-96.2); MONOCYTES # (AUTO) 1.1 K/uL (0.1-1.30); MONOCYTES % (AUTO) 9.5 % (0.0-11.0); NEUTROPHILS # (AUTO) 7.5 K/uL (1.8-8.9); NEUTROPHILS % (AUTO) 64.4 % (38.5-71.5); PLATELET COUNT (AUTO) 271 K/uL (152-348); RED BLOOD CELL COUNT(AUTO) 2.57 MIL/uL (4.06-5.63); WHITE BLOOD COUNT (AUTO) 11.6 K/uL (3.6-10.2)
[2023-03-27 11:54] VITALS: BP 120/70; TEMP 98.7; O2SAT 92
[2023-03-27] MEDS ORDERED: MAGNESIUM OXIDE 400 MG TABLET PO ONE (14:00)
[2023-03-27 14:58] LABS: LYMPHOCYTES % (MANUAL) 19 % (20-40); MONOCYTES % (MANUAL) 9 % (2-10); NEUTROPHILS % (MANUAL) 64 % (42-75)
[2023-03-27 14:59] LABS: EOSINOPHILS % (MANUAL) 8 % (0-8); PLATELET ESTIMATE MODERATE LARGE PLTS
[2023-03-27 15:00] LABS: ANISOCYTOSIS 3+
[2023-03-27 15:01] LABS: OVALOCYTES 2+; TARGET CELLS 2+; TEAR DROP CELLS 2+
[2023-03-27 15:03] LABS: HYPOCHROMASIA 3+
== END 2023-03-27 16:00 | disposition home or self-care (01) | DRG 662 ==
LOC: ER 22:46 → TELE3 03-25 01:27
PROVIDERS: ADMIT Nurse Practitioner Acute Care; ATTEND Nurse Practitioner Acute Care
PROC: 30233N1 Transfusion of Nonautologous Red Blood Cells into Peripheral Vein, Percutaneous Approach (ICD-10-PCS; principal; 2023-03-26)
DX: D57.00 Hb-SS disease with crisis, unspecified (principal); E83.51 Hypocalcemia; D72.829 Elevated white blood cell count, unspecified; R09.02 Hypoxemia; Z90.49 Acquired absence of other specified parts of digestive tract; J98.11 Atelectasis; Z91.014 Allergy to mammalian meats; G89.4 Chronic pain syndrome; I51.7 Cardiomegaly
CPT/HCPCS: 36415; 36600; 70030-TC; 71045; 71275; 83735; 84100; 84484; 85025; 85730; 86850; 86870; 86900; 86901; 86920; 93005; A4606; A4663; G0378; J1170; J1885; J2405; J7040; J7050; P9016; Q9967

== ENCOUNTER 2023-06-13 10:44 | Emergency (ER) | payer MEDICAID ==
[~2023-06-13] VITALS: Ht 175.3 cm; Wt 68.5 kg
[2023-06-13] MEDS ORDERED: ONDANSETRON 4 MG/2 ML VIAL IV ONE (11:00)
[2023-06-13] MEDS: IV NS 1000 ML 1,000 ML IV ONE ×2 (11:00→11:32)
[2023-06-13 11:25] LABS: BASOPHILS # (AUTO) 0.1 K/UL (0.0-0.2); BASOPHILS % (AUTO) 0.8 % (0.0-2.0); EOSINOPHILS # (AUTO) 0.4 K/uL (0.0-0.7); EOSINOPHILS % (AUTO) 3.1 % (0.0-7.0); HEMATOCRIT 21.2 % (36.7-47.1); HEMOGLOBIN 8.3 g/dL (12.5-16.3); LYMPHOCYTES % (AUTO) 38.8 % (20.5-51.5); MEAN CORPUSCULAR HEMOGLOBIN 34.6 uug (23.8-33.4); MEAN CORPUSCULAR HGB CONC 39 g/dL (32.5-36.3); MEAN CORPUSCULAR VOLUME 88.2 fL (73.0-96.2); MONOCYTES # (AUTO) 1.1 K/uL (0.1-1.30); MONOCYTES % (AUTO) 8.8 % (0.0-11.0); NEUTROPHILS # (AUTO) 6.3 K/uL (1.8-8.9); NEUTROPHILS % (AUTO) 48.5 % (38.5-71.5); PLATELET COUNT (AUTO) 332 K/uL (152-348); RED CELL DISTRIBUTION WIDTH 26.9 % (12.1-16.2); RETICULOCYTE COUNT 14.9 % (0.4-2.2); WHITE BLOOD COUNT (AUTO) 12.9 K/uL (3.6-10.2)
[2023-06-13 11:28] LABS: DIFFERENTIAL COMMENT 1
[2023-06-13] MEDS ORDERED: KETOROLAC TROMETHAMINE 15 MG INJ ONE ×2 (11:31→13:03)
[2023-06-13] MEDS ORDERED: HYDROMORPHONE 2 MG/1 ML DISP.SYRIN ONE ×2 (11:31→13:03)
[2023-06-13] MEDS ORDERED: diphenhydrAMINE 50 MG/1 ML VIAL ONE (11:31)
[2023-06-13] MEDS: HYDROMORPHONE 1 MG/1 ML DISP.SYRIN IV ONE ×2 (11:32→13:08)
[2023-06-13] MEDS: diphenhydrAMINE 50 MG/1 ML VIAL IV ONE (11:32)
[2023-06-13] MEDS: KETOROLAC TROMETHAMINE 15 MG INJ IVP ONE ×2 (11:32→13:08)
[2023-06-13 11:38] LABS: CALCIUM 8.6 mg/dL (8.5-10.1); CARBON DIOXIDE 23 mmol/L (21-32); CHLORIDE 102 mmol/L (98-107); CREATININE 0.6 mg/dL (0.6-1.3); GLUCOSE 84 mg/dL (74-106); MAGNESIUM 1.9 mg/dL (1.8-2.4); SODIUM SERUM 131 mmol/L (136-145); UREA NITROGEN, BLOOD 9 mg/dL (7-18)
[2023-06-13 15:44] VITALS: BP 120/78; TEMP 98; O2SAT 98
[2023-06-17] MEDS ORDERED: HYDR-3980 PO ×2 (06:57→11:55)
[2023-06-17] MEDS ORDERED: OXYC-128 PO (11:55)
== END 2023-06-13 16:00 | disposition home or self-care (01) ==
LOC: ER 10:44
DX: D57.00 Hb-SS disease with crisis, unspecified (principal); Z98.890 Other specified postprocedural states; Z79.899 Other long term (current) drug therapy; Z60.2 Problems related to living alone; Z91.018 Allergy to other foods
CPT/HCPCS: 99284; 96374; 96361; 96375; 80048; 83735; 85025; 85044; 36415; 96376; J1200; J1885 ×2; J1170 ×2; J7040 ×2; 70030-TC; A4606; A4663

== ENCOUNTER 2023-07-15 11:00 | Inpatient (IN) | payer MEDICAID ==
[~2023-07-15] VITALS: Ht 175.3 cm; Wt 68.5 kg
[~2023-07-15 11:00] MED LIST changes: +HYDR-3980 PO; -HYDR500C2 PO; +OXYC-128 PO
[2023-07-15] MEDS ORDERED: KETOROLAC TROMETHAMINE 15 MG INJ ONE (11:58)
[2023-07-15] MEDS ORDERED: HYDROMORPHONE 2 MG/1 ML DISP.SYRIN ONE ×4 (11:59→20:03)
[2023-07-15] MEDS: HYDROMORPHONE 1 MG/1 ML DISP.SYRIN IV ONE ×3 (12:05→20:11)
[2023-07-15] MEDS: IV NORMAL SALINE 1000 ML BAG IV ONE (12:05)
[2023-07-15] MEDS: KETOROLAC TROMETHAMINE 15 MG INJ IVP ONE (12:05)
[2023-07-15 12:50] LABS: EOSINOPHILS # (AUTO) 0.3 K/uL (0.0-0.7); LYMPHOCYTES # (AUTO) 4.2 K/uL (0.8-4.8); MONOCYTES # (AUTO) 1.2 K/uL (0.1-1.30); WHITE BLOOD COUNT (AUTO) 11.9 K/uL (3.6-10.2)
[2023-07-15 12:52] LABS: BASOPHILS # (AUTO) 0.1 K/UL (0.0-0.2); BASOPHILS % (AUTO) 1.2 % (0.0-2.0); EOSINOPHILS % (AUTO) 2.6 % (0.0-7.0); MEAN CORPUSCULAR HGB CONC 39 g/dL (32.5-36.3); MONOCYTES % (AUTO) 10.4 % (0.0-11.0); NEUTROPHILS % (AUTO) 50.8 % (38.5-71.5); PLATELET COUNT (AUTO) 252 K/uL (152-348); RED CELL DISTRIBUTION WIDTH 28.7 % (12.1-16.2)
[2023-07-15 12:56] LABS: RED BLOOD CELL COUNT(AUTO) 1.81 MIL/uL (4.06-5.63)
[2023-07-15 12:58] LABS: DIFFERENTIAL COMMENT 1; HEMATOCRIT 16.1 % (36.7-47.1); HEMOGLOBIN 6.3 g/dL (12.5-16.3); RETICULOCYTE COUNT 14.7 % (0.4-2.2)
[2023-07-15] MEDS ORDERED: diphenhydrAMINE 50 MG/1 ML VIAL ONE (13:12)
[2023-07-15] MEDS: diphenhydrAMINE 50 MG/1 ML VIAL IV ONE (13:19)
[2023-07-15 13:27] LABS: CALCIUM 7.9 mg/dL (8.5-10.1); CARBON DIOXIDE 25 mmol/L (21-32); CHLORIDE 109 mmol/L (98-107); CREATININE 0.8 mg/dL (0.6-1.3); GLUCOSE 100 mg/dL (74-106); POTASSIUM 3.9 mmol/L (3.5-5.1); SODIUM SERUM 141 mmol/L (136-145); UREA NITROGEN, BLOOD 5 mg/dL (7-18)
[2023-07-15 14:14] LABS: BAND % (MANUAL) 1 % (0-10); EOSINOPHILS % (MANUAL) 3 % (0-8); LYMPHOCYTES % (MANUAL) 41 % (20-40); MONOCYTES % (MANUAL) 7 % (2-10); NEUTROPHILS % (MANUAL) 48 % (42-75); PLATELET ESTIMATE ADEQUATE
[2023-07-15 14:15] LABS: ANISOCYTOSIS 2+
[2023-07-15 14:19] LABS: OVALOCYTES 1+
[2023-07-15] MEDS ORDERED: REMEDY ESSENTIAL ZINC PASTE 113 GM TP PRN (15:00)
[2023-07-15] MEDS ORDERED: MAGNESIUM HYDROXIDE 30 ML LIQUID UDC PO PRN (15:00)
[2023-07-15] MEDS: HYDROMORPHONE 1 MG/1 ML DISP.SYRIN IV PRN (17:33)
[2023-07-15] MEDS ORDERED: ONDANSETRON 4 MG/2 ML VIAL ONE (17:58)
[2023-07-15] MEDS: ONDANSETRON 4 MG/2 ML VIAL IV PRN (18:00)
[2023-07-15 20:30] VITALS: BP 123/72; TEMP 97.6; O2SAT 99
[2023-07-15] MEDS: IV NS 1000 ML 1,000 ML IV PRN (20:58)
[2023-07-15] MEDS: HYDROMORPHONE 2 MG/1 ML DISP.SYRIN IV PRN (21:48)
[2023-07-16] VITALS (9 sets, daily range): BP systolic 101–125; BP diastolic 53–71; TEMP 97.7–98.8; O2SAT 96–100
[2023-07-16 06:48] LABS: BASOPHILS # (AUTO) 0.1 K/UL (0.0-0.2); BASOPHILS % (AUTO) 0.7 % (0.0-2.0); EOSINOPHILS # (AUTO) 0.4 K/uL (0.0-0.7); EOSINOPHILS % (AUTO) 2.4 % (0.0-7.0); LYMPHOCYTES # (AUTO) 5.3 K/uL (0.8-4.8); LYMPHOCYTES % (AUTO) 28.9 % (20.5-51.5); MEAN CORPUSCULAR HEMOGLOBIN 33.5 uug (23.8-33.4); MEAN CORPUSCULAR HGB CONC 38 g/dL (32.5-36.3); MEAN CORPUSCULAR VOLUME 88.9 fL (73.0-96.2); MONOCYTES # (AUTO) 1.2 K/uL (0.1-1.30); MONOCYTES % (AUTO) 6.3 % (0.0-11.0); NEUTROPHILS # (AUTO) 11.4 K/uL (1.8-8.9); NEUTROPHILS % (AUTO) 61.7 % (38.5-71.5); PLATELET COUNT (AUTO) 290 K/uL (152-348); RED CELL DISTRIBUTION WIDTH 27.5 % (12.1-16.2); WHITE BLOOD COUNT (AUTO) 18.5 K/uL (3.6-10.2)
[2023-07-16 07:14] LABS: RED BLOOD CELL COUNT(AUTO) 1.98 MIL/uL (4.06-5.63)
[2023-07-16 07:15] LABS: DIFFERENTIAL COMMENT 1
[2023-07-16 07:16] LABS: CALCIUM 8.2 mg/dL (8.5-10.1); CREATININE 0.9 mg/dL (0.6-1.3); HEMOGLOBIN 6.6 g/dL (12.5-16.3); MAGNESIUM 1.8 mg/dL (1.8-2.4); POTASSIUM 4.5 mmol/L (3.5-5.1)
[2023-07-16 07:17] LABS: HEMATOCRIT 17.6 % (36.7-47.1)
[2023-07-16] MEDS: FOLIC ACID 1 MG TABLET PO SCH (08:22)
[2023-07-16] MEDS: ACETAMINOPHEN 325 MG TABLET PO PRN (11:24)
[2023-07-16 13:39] LABS: ANISOCYTOSIS 2+; EOSINOPHILS % (MANUAL) 2 % (0-8); LYMPHOCYTES % (MANUAL) 30 % (20-40); MONOCYTES % (MANUAL) 7 % (2-10); NEUTROPHILS % (MANUAL) 61 % (42-75); PLATELET ESTIMATE ADEQUATE
[2023-07-16 13:40] LABS: HYPOCHROMASIA 1+; TEAR DROP CELLS 1+
[2023-07-16] MEDS ORDERED: ONDANSETRON 4 MG/2 ML VIAL IV PRN (15:30)
[2023-07-17 00:58] VITALS: BP 117/58; TEMP 98.6
[2023-07-17 05:14] VITALS: BP 94/48; TEMP 98.2; O2SAT 100
[2023-07-17 07:25] LABS: BASOPHILS # (AUTO) 0.1 K/UL (0.0-0.2); BASOPHILS % (AUTO) 0.7 % (0.0-2.0); EOSINOPHILS # (AUTO) 0.4 K/uL (0.0-0.7); EOSINOPHILS % (AUTO) 2.2 % (0.0-7.0); LYMPHOCYTES # (AUTO) 3.9 K/uL (0.8-4.8); LYMPHOCYTES % (AUTO) 24.3 % (20.5-51.5); MEAN CORPUSCULAR HEMOGLOBIN 32.2 uug (23.8-33.4); MEAN CORPUSCULAR HGB CONC 36 g/dL (32.5-36.3); MEAN CORPUSCULAR VOLUME 88.9 fL (73.0-96.2); MONOCYTES % (AUTO) 6.1 % (0.0-11.0); NEUTROPHILS # (AUTO) 10.7 K/uL (1.8-8.9); NEUTROPHILS % (AUTO) 66.7 % (38.5-71.5); PLATELET COUNT (AUTO) 248 K/uL (152-348); RED CELL DISTRIBUTION WIDTH 24.3 % (12.1-16.2); WHITE BLOOD COUNT (AUTO) 16.1 K/uL (3.6-10.2)
[2023-07-17 07:52] LABS: DIFFERENTIAL COMMENT 1; HEMATOCRIT 20.1 % (36.7-47.1); HEMOGLOBIN 7.3 g/dL (12.5-16.3); RED BLOOD CELL COUNT(AUTO) 2.26 MIL/uL (4.06-5.63)
[2023-07-17 08:44] VITALS: BP 112/63; TEMP 97.7; O2SAT 100
[2023-07-17 11:15] VITALS: BP 102/49; TEMP 98.4; O2SAT 100
[2023-07-17 15:01] VITALS: BP 110/61; TEMP 98.4; O2SAT 100
== END 2023-07-17 17:45 | disposition home or self-care (01) | DRG 662 ==
LOC: ER 11:00 → MEDSURG3 19:59 → TELE3 23:40 → MEDSURG3 07-16 03:21
PROVIDERS: ADMIT Nurse Practitioner Acute Care; ATTEND Nurse Practitioner Acute Care
PROC: 30233N1 Transfusion of Nonautologous Red Blood Cells into Peripheral Vein, Percutaneous Approach (ICD-10-PCS; principal; 2023-07-16)
DX: D57.00 Hb-SS disease with crisis, unspecified (principal); E83.51 Hypocalcemia; D72.829 Elevated white blood cell count, unspecified; Z90.49 Acquired absence of other specified parts of digestive tract
CPT/HCPCS: 36415; 70030-TC; 83735; 84100; 85025; 86850; 86900; 86901; 86920; G0378; J1170; J1200; J1885; J2405; J7040; P9016

== ENCOUNTER 2023-07-22 09:01 | Emergency (ER) | payer MEDICAID ==
[~2023-07-22] VITALS: Ht 175.3 cm; Wt 68.5 kg
[2023-07-22] MEDS ORDERED: HYDROMORPHONE 2 MG/1 ML DISP.SYRIN ONE ×2 (09:55→12:14)
[2023-07-22] MEDS ORDERED: ONDANSETRON 4 MG/2 ML VIAL ONE ×2 (09:55→12:14)
[2023-07-22] MEDS ORDERED: diphenhydrAMINE 50 MG/1 ML VIAL ONE ×2 (09:55→12:14)
[2023-07-22] MEDS: diphenhydrAMINE 50 MG/1 ML VIAL IV ONE ×2 (10:02→12:25)
[2023-07-22] MEDS: ONDANSETRON 4 MG/2 ML VIAL IV ONE ×2 (10:02→12:25)
[2023-07-22] MEDS: HYDROMORPHONE 1 MG/1 ML DISP.SYRIN IV ONE ×2 (10:02→12:25)
[2023-07-22 10:11] LABS: BASOPHILS # (AUTO) 0.2 K/UL (0.0-0.2); EOSINOPHILS # (AUTO) 0.7 K/uL (0.0-0.7)
[2023-07-22 10:13] LABS: BASOPHILS % (AUTO) 1.3 % (0.0-2.0); CALCIUM 8.5 mg/dL (8.5-10.1); CARBON DIOXIDE 21 mmol/L (21-32); CHLORIDE 107 mmol/L (98-107); CREATININE 0.7 mg/dL (0.6-1.3); EOSINOPHILS % (AUTO) 4.3 % (0.0-7.0); GLUCOSE 96 mg/dL (74-106); LYMPHOCYTES # (AUTO) 5.3 K/uL (0.8-4.8); LYMPHOCYTES % (AUTO) 33.4 % (20.5-51.5); MEAN CORPUSCULAR HEMOGLOBIN 33.6 uug (23.8-33.4); MEAN CORPUSCULAR HGB CONC 38 g/dL (32.5-36.3); MEAN CORPUSCULAR VOLUME 87.5 fL (73.0-96.2); MONOCYTES # (AUTO) 1.5 K/uL (0.1-1.30); MONOCYTES % (AUTO) 9.4 % (0.0-11.0); NEUTROPHILS # (AUTO) 8.2 K/uL (1.8-8.9); NEUTROPHILS % (AUTO) 51.6 % (38.5-71.5); PLATELET COUNT (AUTO) 301 K/uL (152-348); POTASSIUM 4.4 mmol/L (3.5-5.1); RED CELL DISTRIBUTION WIDTH 25.5 % (12.1-16.2); SODIUM SERUM 140 mmol/L (136-145); UREA NITROGEN, BLOOD 12 mg/dL (7-18); WHITE BLOOD COUNT (AUTO) 15.8 K/uL (3.6-10.2)
[2023-07-22 10:15] LABS: DIFFERENTIAL COMMENT 1; HEMATOCRIT 18.4 % (36.7-47.1); HEMOGLOBIN 7.1 g/dL (12.5-16.3)
[2023-07-22 10:18] LABS: ALANINE AMINOTRANSFERASE 36 U/L (16-63); ALBUMIN 3.6 g/dL (3.4-5.0); ALKALINE PHOSPHATASE 122 U/L (50-136); ASPARTATE AMINOTRANSFERASE 91 U/L (15-37); BILIRUBIN,DIRECT 0.4 mg/dL (0.0-0.2); TOTAL PROTEIN, SERUM 7.7 g/dL (6.4-8.2)
[2023-07-22 11:39] LABS: BAND % (MANUAL) 2 % (0-10); EOSINOPHILS % (MANUAL) 5 % (0-8); LYMPHOCYTES % (MANUAL) 35 % (20-40); MONOCYTES % (MANUAL) 9 % (2-10); NEUTROPHILS % (MANUAL) 49 % (42-75); PLATELET ESTIMATE ADEQUATE
[2023-07-22 11:40] LABS: ANISOCYTOSIS 2+
[2023-07-22] MEDS: IV NORMAL SALINE 1000 ML BAG IV ONE (12:26)
[2023-07-22 15:39] VITALS: BP 110/66; O2SAT 96
== END 2023-07-22 15:40 | disposition home or self-care (01) ==
LOC: ER 09:01
DX: G89.4 Chronic pain syndrome (principal); D57.1 Sickle-cell disease without crisis; Z98.890 Other specified postprocedural states; Z79.899 Other long term (current) drug therapy; Z60.2 Problems related to living alone; Z91.013 Allergy to seafood
CPT/HCPCS: 36415; 70030-TC; 83690; 85025; 85730; 86850; 86900; 86901; A4606; A4663; J1170; J1200; J2405; J7040

== ENCOUNTER 2023-09-22 11:52 | Emergency (ER) | payer MEDICAID, OTHER ==
[~2023-09-22] VITALS: Ht 175.3 cm; Wt 68.0 kg
[2023-09-22] MEDS ORDERED: KETOROLAC TROMETHAMINE 15 MG INJ ONE (12:21)
[2023-09-22] MEDS ORDERED: ONDANSETRON 4 MG/2 ML VIAL ONE (12:21)
[2023-09-22] MEDS ORDERED: HYDROMORPHONE 1 MG/1 ML DISP.SYRIN ONE ×4 (12:22→15:45)
[2023-09-22] MEDS: HYDROMORPHONE 1 MG/1 ML DISP.SYRIN IV ONE ×4 (12:26→15:46)
[2023-09-22] MEDS: IV NORMAL SALINE 1000 ML BAG IV ONE (12:26)
[2023-09-22] MEDS: KETOROLAC TROMETHAMINE 15 MG INJ IVP ONE (12:26)
[2023-09-22] MEDS: ONDANSETRON 4 MG/2 ML VIAL IV ONE (12:26)
[2023-09-22 12:27] LABS: BASOPHILS # (AUTO) 0.1 K/UL (0.0-0.2); BASOPHILS % (AUTO) 0.8 % (0.0-2.0); EOSINOPHILS # (AUTO) 0.3 K/uL (0.0-0.7); LYMPHOCYTES # (AUTO) 4.9 K/uL (0.8-4.8); LYMPHOCYTES % (AUTO) 43.9 % (20.5-51.5); MEAN CORPUSCULAR HEMOGLOBIN 30.5 uug (23.8-33.4); MEAN CORPUSCULAR HGB CONC 37 g/dL (32.5-36.3); MEAN CORPUSCULAR VOLUME 83.4 fL (73.0-96.2); MONOCYTES # (AUTO) 1.1 K/uL (0.1-1.30); MONOCYTES % (AUTO) 10.1 % (0.0-11.0); NEUTROPHILS # (AUTO) 4.7 K/uL (1.8-8.9); NEUTROPHILS % (AUTO) 42.2 % (38.5-71.5); PLATELET COUNT (AUTO) 337 K/uL (152-348); RETICULOCYTE COUNT 11.4 % (0.4-2.2); WHITE BLOOD COUNT (AUTO) 11.1 K/uL (3.6-10.2)
[2023-09-22 12:33] LABS: CARBON DIOXIDE 24 mmol/L (21-32); CHLORIDE 104 mmol/L (98-107); CREATININE 0.7 mg/dL (0.6-1.3); GLUCOSE 95 mg/dL (74-106); POTASSIUM 4.1 mmol/L (3.5-5.1); SODIUM SERUM 136 mmol/L (136-145); UREA NITROGEN, BLOOD 6 mg/dL (7-18)
[2023-09-22 12:38] LABS: ALANINE AMINOTRANSFERASE 32 U/L (16-63); ALBUMIN 3.8 g/dL (3.4-5.0); ALKALINE PHOSPHATASE 117 U/L (50-136); ASPARTATE AMINOTRANSFERASE 80 U/L (15-37); BILIRUBIN,TOTAL 5.2 mg/dL (0.2-1.0); TOTAL PROTEIN, SERUM 7.8 g/dL (6.4-8.2)
[2023-09-22 12:39] LABS: ACETAMINOPHEN < 2.0 ug/mL (10-30); DIFFERENTIAL COMMENT 1; HEMATOCRIT 19.5 % (36.7-47.1); RED BLOOD CELL COUNT(AUTO) 2.34 MIL/uL (4.06-5.63)
[2023-09-22 12:41] LABS: HEMOGLOBIN 7.1 g/dL (12.5-16.3)
[2023-09-22 16:28] VITALS: BP 110/73; TEMP 98.6
[2023-09-22 16:30] VITALS: O2SAT 96
== END 2023-09-22 16:30 | disposition home or self-care (01) ==
LOC: ER 11:52
DX: D57.00 Hb-SS disease with crisis, unspecified (principal); R07.89 Other chest pain; Z98.890 Other specified postprocedural states; Z79.891 Long term (current) use of opiate analgesic; Z79.899 Other long term (current) drug therapy; Z60.2 Problems related to living alone; Z91.018 Allergy to other foods
CPT/HCPCS: 36415; 71045; 72170; 73590; 84484; 85025; 86850; 86900; 86901; A4606; A4663; J1170; J1885; J2405; J7040

== ENCOUNTER 2023-09-27 15:49 | Inpatient (IN) | payer MEDICAID, OTHER ==
[~2023-09-27] VITALS: Ht 177.8 cm; Wt 64.0 kg
[2023-09-27] MEDS: IV NORMAL SALINE 1000 ML BAG IV ONE (16:14)
[2023-09-27] MEDS ORDERED: ONDANSETRON 4 MG/2 ML VIAL ONE (16:16)
[2023-09-27] MEDS ORDERED: diphenhydrAMINE 50 MG/1 ML VIAL ONE (16:16)
[2023-09-27] MEDS ORDERED: HYDROMORPHONE 2 MG/1 ML DISP.SYRIN ONE (16:17)
[2023-09-27] MEDS ORDERED: KETOROLAC TROMETHAMINE 15 MG INJ ONE (16:17)
[2023-09-27 16:18] LABS: BASOPHILS # (AUTO) 0.2 K/UL (0.0-0.2); BASOPHILS % (AUTO) 1.8 % (0.0-2.0); EOSINOPHILS # (AUTO) 0.5 K/uL (0.0-0.7); EOSINOPHILS % (AUTO) 4.6 % (0.0-7.0); LYMPHOCYTES # (AUTO) 4.7 K/uL (0.8-4.8); LYMPHOCYTES % (AUTO) 45.4 % (20.5-51.5); MEAN CORPUSCULAR HEMOGLOBIN 29.6 uug (23.8-33.4); MEAN CORPUSCULAR HGB CONC 36 g/dL (32.5-36.3); MEAN CORPUSCULAR VOLUME 82.6 fL (73.0-96.2); MONOCYTES # (AUTO) 0.7 K/uL (0.1-1.30); MONOCYTES % (AUTO) 7.2 % (0.0-11.0); NEUTROPHILS # (AUTO) 4.2 K/uL (1.8-8.9); PLATELET COUNT (AUTO) 303 K/uL (152-348); RED CELL DISTRIBUTION WIDTH 27.4 % (12.1-16.2); WHITE BLOOD COUNT (AUTO) 10.3 K/uL (3.6-10.2)
[2023-09-27] MEDS: diphenhydrAMINE 50 MG/1 ML VIAL IV ONE (16:21)
[2023-09-27] MEDS: HYDROMORPHONE 1 MG/1 ML DISP.SYRIN IV ONE (16:21)
[2023-09-27] MEDS: ONDANSETRON 4 MG/2 ML VIAL IV ONE (16:21)
[2023-09-27] MEDS: KETOROLAC TROMETHAMINE 15 MG INJ IVP ONE (16:22)
[2023-09-27 16:26] LABS: CALCIUM 8.6 mg/dL (8.5-10.1); CARBON DIOXIDE 24 mmol/L (21-32); CHLORIDE 106 mmol/L (98-107); CREATININE 0.7 mg/dL (0.6-1.3); GLUCOSE 97 mg/dL (74-106); SODIUM SERUM 140 mmol/L (136-145); UREA NITROGEN, BLOOD 7 mg/dL (7-18)
[2023-09-27 16:29] LABS: DIFFERENTIAL COMMENT 1; HEMATOCRIT 17.4 % (36.7-47.1); HEMOGLOBIN 6.2 g/dL (12.5-16.3)
[2023-09-27 16:31] LABS: ALANINE AMINOTRANSFERASE 33 U/L (16-63); ALBUMIN 3.7 g/dL (3.4-5.0); ALKALINE PHOSPHATASE 113 U/L (50-136); ASPARTATE AMINOTRANSFERASE 88 U/L (15-37); BILIRUBIN,DIRECT 0.6 mg/dL (0.0-0.2); BILIRUBIN,TOTAL 4.9 mg/dL (0.2-1.0); TOTAL PROTEIN, SERUM 7.5 g/dL (6.4-8.2)
[2023-09-27] MEDS ORDERED: ACETAMINOPHEN 325 MG TABLET PO PRN (17:00)
[2023-09-27] MEDS ORDERED: MAGNESIUM HYDROXIDE 30 ML LIQUID UDC PO PRN (17:00)
[2023-09-27] MEDS ORDERED: REMEDY ESSENTIAL ZINC PASTE 113 GM TP PRN (17:00)
[2023-09-27 17:01] LABS: NEUTROPHILS % (MANUAL) 45 % (42-75)
[2023-09-27 17:02] LABS: BASOPHILS % (MANUAL) 0 % (0-2); EOSINOPHILS % (MANUAL) 1 % (0-8); HYPOCHROMASIA 2+; LYMPHOCYTES % (MANUAL) 45 % (20-40); MONOCYTES % (MANUAL) 9 % (2-10)
[2023-09-27 18:47] VITALS: BP 109/61; TEMP 97.7
[2023-09-27] MEDS: IV 1/2NS 1000 ML 1,000 ML IV PRN (20:13)
[2023-09-27] MEDS: HYDROCODONE/APAP 5-325MG TABLET PO PRN (20:14)
[2023-09-27] MEDS: HYDROMORPHONE 1 MG/1 ML DISP.SYRIN IV PRN (20:20)
[2023-09-27 20:39] VITALS: BP 103/59; TEMP 97.7; O2SAT 96
[2023-09-28] MEDS: PANTOPRAZOLE SODIUM 40 MG TABLET.DR PO SCH (07:00)
[2023-09-28 09:24] LABS: HEMATOCRIT 16.9 % (36.7-47.1); RED BLOOD CELL COUNT(AUTO) 1.99 MIL/uL (4.06-5.63); WHITE BLOOD COUNT (AUTO) 11.2 K/uL (3.6-10.2)
[2023-09-28 09:25] LABS: BASOPHILS # (AUTO) 0.1 K/UL (0.0-0.2); BASOPHILS % (AUTO) 1.2 % (0.0-2.0); EOSINOPHILS # (AUTO) 0.7 K/uL (0.0-0.7); EOSINOPHILS % (AUTO) 6.5 % (0.0-7.0); LYMPHOCYTES # (AUTO) 5.1 K/uL (0.8-4.8); LYMPHOCYTES % (AUTO) 45.3 % (20.5-51.5); MEAN CORPUSCULAR HEMOGLOBIN 30.7 uug (23.8-33.4); MEAN CORPUSCULAR HGB CONC 36 g/dL (32.5-36.3); MEAN CORPUSCULAR VOLUME 84.7 fL (73.0-96.2); MONOCYTES % (AUTO) 8.8 % (0.0-11.0); NEUTROPHILS # (AUTO) 4.3 K/uL (1.8-8.9); NEUTROPHILS % (AUTO) 38.2 % (38.5-71.5); PLATELET COUNT (AUTO) 239 K/uL (152-348); RED CELL DISTRIBUTION WIDTH 26.8 % (12.1-16.2)
[2023-09-28 12:00] VITALS: BP 108/70; TEMP 97.8; O2SAT 98
[2023-09-28 13:53] LABS: POTASSIUM 4.1 mmol/L (3.5-5.1); SODIUM SERUM 140 mmol/L (136-145)
[2023-09-28 13:54] LABS: CALCIUM 8.4 mg/dL (8.5-10.1); CARBON DIOXIDE 25 mmol/L (21-32); CHLORIDE 107 mmol/L (98-107); CREATININE 0.7 mg/dL (0.6-1.3); GLUCOSE 85 mg/dL (74-106); MAGNESIUM 1.9 mg/dL (1.8-2.4); PHOSPHOROUS 3.6 mg/dL (2.5-4.9); UREA NITROGEN, BLOOD 6 mg/dL (7-18)
[2023-09-28 16:00] VITALS: BP 104/53; TEMP 98; O2SAT 93
[2023-09-28 16:20] VITALS: O2SAT 96
[2023-09-28] MEDS: HYDROCODONE/APAP 10-325 MG TABLET PO SCH (16:51)
[2023-09-28 20:38] VITALS: BP 106/62; TEMP 98.1; O2SAT 97
[2023-09-28] MEDS: HYDROMORPHONE 1 MG/1 ML DISP.SYRIN IV PRN (22:39)
[2023-09-28] MEDS: ONDANSETRON 4 MG/2 ML VIAL IV PRN (23:17)
[2023-09-29] VITALS (11 sets, daily range): BP systolic 103–116; BP diastolic 45–76; TEMP 97.3–98.3; O2SAT 96–98
[2023-09-29 07:09] LABS: BASOPHILS # (AUTO) 0.2 K/UL (0.0-0.2); LYMPHOCYTES # (AUTO) 5.4 K/uL (0.8-4.8)
[2023-09-29 07:11] LABS: BASOPHILS % (AUTO) 1.4 % (0.0-2.0); EOSINOPHILS % (AUTO) 9.2 % (0.0-7.0); LYMPHOCYTES % (AUTO) 45.9 % (20.5-51.5); MEAN CORPUSCULAR HEMOGLOBIN 30.5 uug (23.8-33.4); MEAN CORPUSCULAR HGB CONC 36 g/dL (32.5-36.3); MEAN CORPUSCULAR VOLUME 84.7 fL (73.0-96.2); MONOCYTES % (AUTO) 7.7 % (0.0-11.0); NEUTROPHILS % (AUTO) 35.8 % (38.5-71.5); PLATELET COUNT (AUTO) 227 K/uL (152-348); RED CELL DISTRIBUTION WIDTH 26.4 % (12.1-16.2); WHITE BLOOD COUNT (AUTO) 11.7 K/uL (3.6-10.2)
[2023-09-29 07:12] LABS: EOSINOPHILS # (AUTO) 1.1 K/uL (0.0-0.7); MONOCYTES # (AUTO) 0.9 K/uL (0.1-1.30); NEUTROPHILS # (AUTO) 4.2 K/uL (1.8-8.9)
[2023-09-29 07:27] LABS: CALCIUM 8.7 mg/dL (8.5-10.1); CARBON DIOXIDE 28 mmol/L (21-32); CHLORIDE 106 mmol/L (98-107); CREATININE 0.7 mg/dL (0.6-1.3); GLUCOSE 90 mg/dL (74-106); MAGNESIUM 1.8 mg/dL (1.8-2.4); PHOSPHOROUS 3.8 mg/dL (2.5-4.9); POTASSIUM 4.2 mmol/L (3.5-5.1); SODIUM SERUM 141 mmol/L (136-145); UREA NITROGEN, BLOOD 7 mg/dL (7-18)
[2023-09-29 07:28] LABS: RED BLOOD CELL COUNT(AUTO) 2.04 MIL/uL (4.06-5.63)
[2023-09-29 07:34] LABS: HEMOGLOBIN 6.2 g/dL (12.5-16.3)
[2023-09-29 07:35] LABS: DIFFERENTIAL COMMENT 1; HEMATOCRIT 17.3 % (36.7-47.1)
[2023-09-29] MEDS ORDERED: FOLIC ACID 1 MG TABLET PO SCH (09:00)
[2023-09-29] MEDS: FOLIC ACID 1 MG TABLET PO SCH (09:59)
[2023-09-29 16:45] LABS: EOSINOPHILS % (MANUAL) 11 % (0-8); LYMPHOCYTES % (MANUAL) 46 % (20-40); MONOCYTES % (MANUAL) 8 % (2-10); NEUTROPHILS % (MANUAL) 35 % (42-75); PLATELET ESTIMATE ADEQUATE
[2023-09-29 16:47] LABS: ANISOCYTOSIS 2+
[2023-09-29 16:50] LABS: OVALOCYTES 1+
[2023-09-29] MEDS: METOCLOPRAMIDE HCL 10 MG/2 ML VIAL IV SCH (21:49)
[2023-09-30 03:33] VITALS: BP 131/69; TEMP 97.8; O2SAT 95
[2023-09-30] MEDS ORDERED: METOCLOPRAMIDE HCL 10 MG/2 ML VIAL IV PRN (04:00)
[2023-09-30 07:06] VITALS: BP 115/69; TEMP 98.1; O2SAT 90
[2023-09-30 07:22] LABS: BASOPHILS # (AUTO) 0.2 K/UL (0.0-0.2); EOSINOPHILS # (AUTO) 0.8 K/uL (0.0-0.7); MONOCYTES # (AUTO) 1.1 K/uL (0.1-1.30); WHITE BLOOD COUNT (AUTO) 12.9 K/uL (3.6-10.2)
[2023-09-30 07:24] LABS: BASOPHILS % (AUTO) 1.4 % (0.0-2.0); EOSINOPHILS % (AUTO) 5.9 % (0.0-7.0); LYMPHOCYTES # (AUTO) 4.5 K/uL (0.8-4.8); LYMPHOCYTES % (AUTO) 34.8 % (20.5-51.5); MEAN CORPUSCULAR HEMOGLOBIN 31.1 uug (23.8-33.4); MEAN CORPUSCULAR HGB CONC 38 g/dL (32.5-36.3); MEAN CORPUSCULAR VOLUME 81.1 fL (73.0-96.2); MONOCYTES % (AUTO) 8.7 % (0.0-11.0); NEUTROPHILS # (AUTO) 6.3 K/uL (1.8-8.9); NEUTROPHILS % (AUTO) 49.2 % (38.5-71.5); PLATELET COUNT (AUTO) 261 K/uL (152-348); RED CELL DISTRIBUTION WIDTH 23.8 % (12.1-16.2)
[2023-09-30 07:33] LABS: CALCIUM 8.8 mg/dL (8.5-10.1); CARBON DIOXIDE 26 mmol/L (21-32); CHLORIDE 103 mmol/L (98-107); CREATININE 0.8 mg/dL (0.6-1.3); GLUCOSE 102 mg/dL (74-106); MAGNESIUM 1.9 mg/dL (1.8-2.4); PHOSPHOROUS 3.5 mg/dL (2.5-4.9); POTASSIUM 4.5 mmol/L (3.5-5.1); SODIUM SERUM 138 mmol/L (136-145); UREA NITROGEN, BLOOD 8 mg/dL (7-18)
[2023-09-30 07:47] LABS: RED BLOOD CELL COUNT(AUTO) 2.37 MIL/uL (4.06-5.63)
[2023-09-30 07:48] LABS: DIFFERENTIAL COMMENT 1; HEMOGLOBIN 7.4 g/dL (12.5-16.3)
[2023-09-30 07:50] LABS: HEMATOCRIT 19.2 % (36.7-47.1)
[2023-09-30 15:17] LABS: HEMOGLOBIN 6.1 g/dL (12.5-16.3)
== END 2023-09-30 13:50 | disposition home or self-care (01) | DRG 662 ==
LOC: ER 15:50 → MEDSURG3 18:09
PROVIDERS: ADMIT Student in an Organized Health Care Education/Training Program; ATTEND Student in an Organized Health Care Education/Training Program
PROC: 30233N1 Transfusion of Nonautologous Red Blood Cells into Peripheral Vein, Percutaneous Approach (ICD-10-PCS; principal; 2023-09-29)
DX: D57.00 Hb-SS disease with crisis, unspecified (principal); D72.829 Elevated white blood cell count, unspecified; R74.01 Elevation of levels of liver transaminase levels; Z90.49 Acquired absence of other specified parts of digestive tract; Z91.014 Allergy to mammalian meats
CPT/HCPCS: 36415; 70030-TC; 71045; 83735; 84100; 85025; 85730; 86850; 86900; 86901; 86920; 93005; A4606; A4663; G0378; J1170; J1200; J1885; J2405; J2765; J7040; P9016

== ENCOUNTER 2023-10-05 08:35 | Emergency (ER) | payer MEDICAID, OTHER ==
[~2023-10-05] VITALS: Ht 175.3 cm; Wt 68.5 kg
[2023-10-05] MEDS ORDERED: HYDROMORPHONE 1 MG/1 ML DISP.SYRIN ONE ×2 (09:18→11:56)
[2023-10-05] MEDS ORDERED: diphenhydrAMINE 50 MG/1 ML VIAL ONE (09:18)
[2023-10-05] MEDS ORDERED: HYDROMORPHONE 2 MG/1 ML DISP.SYRIN ONE ×3 (09:18→14:42)
[2023-10-05] MEDS ORDERED: ONDANSETRON 4 MG/2 ML VIAL ONE ×2 (09:18→11:55)
[2023-10-05 09:22] LABS: BASOPHILS # (AUTO) 0.2 K/UL (0.0-0.2); BASOPHILS % (AUTO) 1.2 % (0.0-2.0); EOSINOPHILS # (AUTO) 0.9 K/uL (0.0-0.7); EOSINOPHILS % (AUTO) 6.9 % (0.0-7.0); LYMPHOCYTES # (AUTO) 5.7 K/uL (0.8-4.8); LYMPHOCYTES % (AUTO) 42.4 % (20.5-51.5); MEAN CORPUSCULAR HEMOGLOBIN 30.7 uug (23.8-33.4); MEAN CORPUSCULAR HGB CONC 37 g/dL (32.5-36.3); MEAN CORPUSCULAR VOLUME 84.1 fL (73.0-96.2); MONOCYTES # (AUTO) 1.3 K/uL (0.1-1.30); MONOCYTES % (AUTO) 9.4 % (0.0-11.0); NEUTROPHILS # (AUTO) 5.4 K/uL (1.8-8.9); NEUTROPHILS % (AUTO) 40.1 % (38.5-71.5); PLATELET COUNT (AUTO) 329 K/uL (152-348); RED CELL DISTRIBUTION WIDTH 28.6 % (12.1-16.2); WHITE BLOOD COUNT (AUTO) 13.5 K/uL (3.6-10.2)
[2023-10-05] MEDS: HYDROMORPHONE 1 MG/1 ML DISP.SYRIN IV ONE ×3 (09:25→14:44)
[2023-10-05] MEDS: diphenhydrAMINE 50 MG/1 ML VIAL IV ONE (09:25)
[2023-10-05] MEDS: IV NS 1000 ML 1,000 ML IV ONE ×2 (09:25→09:26)
[2023-10-05] MEDS: ONDANSETRON 4 MG/2 ML VIAL IV ONE ×2 (09:25→12:11)
[2023-10-05 09:27] LABS: DIFFERENTIAL COMMENT 1; HEMATOCRIT 19.8 % (36.7-47.1); RED BLOOD CELL COUNT(AUTO) 2.36 MIL/uL (4.06-5.63)
[2023-10-05 09:31] LABS: HEMOGLOBIN 7.2 g/dL (12.5-16.3)
[2023-10-05] MEDS ORDERED: KETOROLAC TROMETHAMINE 30 MG INJ ONE (09:34)
[2023-10-05] MEDS: KETOROLAC TROMETHAMINE 30 MG INJ IVP ONE (09:42)
[2023-10-05 09:44] LABS: CALCIUM 8.8 mg/dL (8.5-10.1); CARBON DIOXIDE 22 mmol/L (21-32); CHLORIDE 107 mmol/L (98-107); CREATININE 0.6 mg/dL (0.6-1.3); GLUCOSE 94 mg/dL (74-106); POTASSIUM 4.2 mmol/L (3.5-5.1); SODIUM SERUM 140 mmol/L (136-145); UREA NITROGEN, BLOOD 9 mg/dL (7-18)
[2023-10-05 09:52] LABS: *BILIRUBIN,URIN NEGATIVE (NEGATIVE); *BLOOD, URINE 1+ (NEGATIVE); *CLARITY,URINE CLEAR (CLEAR); *COLOR,URINE YELLOW (YELLOW); *KETONES,URINE NEGATIVE (NEGATIVE); *PROTEIN,URINE TRACE (NEGATIVE); LEUKOCYTE ESTERASE ,URINE NEGATIVE (NEGATIVE); NITRITE, URINE NEGATIVE (NEGATIVE); UGLUCOSE NEGATIVE (NEGATIVE)
[2023-10-05 10:19] LABS: BACTERIA,URINE MODERATE /HPF (NONE SEEN); RBC,URINE 0-3 /HPF (0-3); SQUAMOUS EPITHELIAL CELL,UR FEW /HPF (NONE SEEN); WBC,URINE 0-3 /HPF (0-3)
[2023-10-05] MEDS ORDERED: HYDR4TAB4 PO (14:43)
[2023-10-05 14:57] VITALS: O2SAT 97
== END 2023-10-05 14:59 | disposition home or self-care (01) ==
LOC: ER 08:35
DX: D57.00 Hb-SS disease with crisis, unspecified (principal); Z98.890 Other specified postprocedural states; Z79.899 Other long term (current) drug therapy; Z79.891 Long term (current) use of opiate analgesic; Z60.2 Problems related to living alone; Z91.013 Allergy to seafood
CPT/HCPCS: 99284; 96374; 96375; 96361; 80048; 81001; 85025; 36415; 96376; J1200; J1885; J2405 ×2; J1170 ×5; J7040 ×2; A4606; A4663

== ENCOUNTER 2023-10-29 09:56 | Emergency (ER) | payer OTHER ==
[~2023-10-29] VITALS: Ht 175.3 cm; Wt 66.7 kg
[~2023-10-29 09:56] MED LIST changes: +HYDR4TAB4 PO
[2023-10-29] MEDS: IV NORMAL SALINE 1000 ML BAG IV ONE (10:25)
[2023-10-29] MEDS ORDERED: diphenhydrAMINE 50 MG/1 ML VIAL ONE (10:27)
[2023-10-29] MEDS ORDERED: HYDROMORPHONE 2 MG/1 ML DISP.SYRIN ONE ×2 (10:27→12:24)
[2023-10-29] MEDS ORDERED: KETOROLAC TROMETHAMINE 30 MG INJ ONE (10:27)
[2023-10-29] MEDS: KETOROLAC TROMETHAMINE 30 MG INJ IVP ONE (10:33)
[2023-10-29] MEDS: diphenhydrAMINE 50 MG/1 ML VIAL IV ONE (10:37)
[2023-10-29] MEDS: HYDROMORPHONE 1 MG/1 ML DISP.SYRIN IV ONE ×2 (10:38→12:26)
[2023-10-29 10:51] LABS: LYMPHOCYTES # (AUTO) 4.7 K/uL (0.8-4.8); MEAN CORPUSCULAR HGB CONC 37 g/dL (32.5-36.3); MONOCYTES # (AUTO) 1.3 K/uL (0.1-1.30)
[2023-10-29 10:52] LABS: BASOPHILS % (AUTO) 0.3 % (0.0-2.0); EOSINOPHILS # (AUTO) 0.8 K/uL (0.0-0.7); EOSINOPHILS % (AUTO) 5.9 % (0.0-7.0); LYMPHOCYTES % (AUTO) 36.6 % (20.5-51.5); MEAN CORPUSCULAR HEMOGLOBIN 32.1 uug (23.8-33.4); MEAN CORPUSCULAR VOLUME 87.6 fL (73.0-96.2); MONOCYTES % (AUTO) 10.1 % (0.0-11.0); NEUTROPHILS % (AUTO) 47.1 % (38.5-71.5); PLATELET COUNT (AUTO) 304 K/uL (152-348); RED CELL DISTRIBUTION WIDTH 25.5 % (12.1-16.2); WHITE BLOOD COUNT (AUTO) 12.8 K/uL (3.6-10.2)
[2023-10-29 10:53] LABS: DIFFERENTIAL COMMENT 1; HEMATOCRIT 19.5 % (36.7-47.1); HEMOGLOBIN 7.2 g/dL (12.5-16.3); RED BLOOD CELL COUNT(AUTO) 2.23 MIL/uL (4.06-5.63)
[2023-10-29 10:55] LABS: CALCIUM 8.8 mg/dL (8.5-10.1); CARBON DIOXIDE 27 mmol/L (21-32); CHLORIDE 107 mmol/L (98-107); CREATININE 0.6 mg/dL (0.6-1.3); GLUCOSE 87 mg/dL (74-106); POTASSIUM 4.5 mmol/L (3.5-5.1); SODIUM SERUM 141 mmol/L (136-145); UREA NITROGEN, BLOOD 5 mg/dL (7-18)
[2023-10-29 11:01] LABS: ALANINE AMINOTRANSFERASE 34 U/L (16-63); ALBUMIN 3.6 g/dL (3.4-5.0); ALKALINE PHOSPHATASE 93 U/L (50-136); ASPARTATE AMINOTRANSFERASE 87 U/L (15-37); BILIRUBIN,DIRECT 0.5 mg/dL (0.0-0.2); BILIRUBIN,TOTAL 5.4 mg/dL (0.2-1.0); TOTAL PROTEIN, SERUM 7.4 g/dL (6.4-8.2)
[2023-10-29] MEDS ORDERED: HYDR4TAB4 PO (12:25)
[2023-10-29 14:59] VITALS: BP 121/65; O2SAT 96
== END 2023-10-29 15:09 | disposition home or self-care (01) ==
LOC: ER 09:57
DX: D57.00 Hb-SS disease with crisis, unspecified (principal); Z98.890 Other specified postprocedural states; Z79.891 Long term (current) use of opiate analgesic; Z79.899 Other long term (current) drug therapy; Z60.2 Problems related to living alone; Z91.018 Allergy to other foods
CPT/HCPCS: 99284; 96374; 96361; 96375; 80076; 80048; 85025; 36415; 96376; J1200; J1885; J1170 ×2; J7040 ×2; A4606; A4663

== ENCOUNTER 2023-11-26 07:50 | Emergency (ER) | payer OTHER ==
[~2023-11-26] VITALS: Ht 175.3 cm; Wt 66.7 kg
[2023-11-26] MEDS ORDERED: KETOROLAC TROMETHAMINE 60 MG INJ IM ONE (08:15)
[2023-11-26] MEDS: IV NORMAL SALINE 1000 ML BAG IV ONE (08:15)
[2023-11-26] MEDS ORDERED: diphenhydrAMINE 50 MG/1 ML VIAL ONE ×2 (08:15→09:36)
[2023-11-26] MEDS ORDERED: METOCLOPRAMIDE HCL 10 MG/2 ML VIAL ONE (08:16)
[2023-11-26] MEDS ORDERED: HYDROMORPHONE 2 MG/1 ML DISP.SYRIN ONE ×3 (08:16→10:58)
[2023-11-26] MEDS: KETOROLAC TROMETHAMINE 60 MG INJ IM ONE (08:16)
[2023-11-26] MEDS: HYDROMORPHONE 1 MG/1 ML DISP.SYRIN IV ONE ×4 (08:18→11:04)
[2023-11-26] MEDS: diphenhydrAMINE 50 MG/1 ML VIAL IV ONE (08:20)
[2023-11-26] MEDS: METOCLOPRAMIDE HCL 10 MG/2 ML VIAL IV ONE (08:22)
[2023-11-26] MEDS: IV LACTATED RINGERS SOLUTION 1,000 ML BAG IV ONE (08:31)
[2023-11-26 08:33] LABS: BASOPHILS # (AUTO) 0.2 K/UL (0.0-0.2); BASOPHILS % (AUTO) 1.9 % (0.0-2.0); EOSINOPHILS # (AUTO) 0.6 K/uL (0.0-0.7); EOSINOPHILS % (AUTO) 4.6 % (0.0-7.0); LYMPHOCYTES # (AUTO) 4.8 K/uL (0.8-4.8); LYMPHOCYTES % (AUTO) 39.3 % (20.5-51.5); MEAN CORPUSCULAR HEMOGLOBIN 35.5 uug (23.8-33.4); MEAN CORPUSCULAR HGB CONC 40 g/dL (32.5-36.3); MEAN CORPUSCULAR VOLUME 88.4 fL (73.0-96.2); MONOCYTES # (AUTO) 1.4 K/uL (0.1-1.30); NEUTROPHILS # (AUTO) 5.3 K/uL (1.8-8.9); NEUTROPHILS % (AUTO) 43.2 % (38.5-71.5); PLATELET COUNT (AUTO) 329 K/uL (152-348); RED CELL DISTRIBUTION WIDTH 27.9 % (12.1-16.2); WHITE BLOOD COUNT (AUTO) 12.3 K/uL (3.6-10.2)
[2023-11-26 08:39] LABS: HEMOGLOBIN 7.1 g/dL (12.5-16.3)
[2023-11-26 08:40] LABS: DIFFERENTIAL COMMENT 1; HEMATOCRIT 17.7 % (36.7-47.1)
[2023-11-26 08:58] LABS: ALANINE AMINOTRANSFERASE 31 U/L (16-63); ALBUMIN 3.6 g/dL (3.4-5.0); ALKALINE PHOSPHATASE 108 U/L (50-136); ASPARTATE AMINOTRANSFERASE 111 U/L (15-37); BILIRUBIN,DIRECT 0.5 mg/dL (0.0-0.2); BILIRUBIN,TOTAL 5.4 mg/dL (0.2-1.0); CALCIUM 8.3 mg/dL (8.5-10.1); CARBON DIOXIDE 22 mmol/L (21-32); CHLORIDE 107 mmol/L (98-107); CREATININE 0.5 mg/dL (0.6-1.3); GLUCOSE 109 mg/dL (74-106); POTASSIUM 3.9 mmol/L (3.5-5.1); SODIUM SERUM 138 mmol/L (136-145); TOTAL PROTEIN, SERUM 7.4 g/dL (6.4-8.2); UREA NITROGEN, BLOOD 9 mg/dL (7-18)
[2023-11-26] MEDS ORDERED: ONDANSETRON 4 MG/2 ML VIAL ONE (10:52)
[2023-11-26] MEDS: ONDANSETRON 4 MG/2 ML VIAL IV ONE (10:53)
[2023-11-26 11:09] VITALS: O2SAT 95
== END 2023-11-26 11:12 | disposition home or self-care (01) ==
LOC: ER 07:52
DX: D57.00 Hb-SS disease with crisis, unspecified (principal); Z98.890 Other specified postprocedural states; Z79.891 Long term (current) use of opiate analgesic; Z79.899 Other long term (current) drug therapy; Z60.2 Problems related to living alone; Z88.8 Allergy status to other drugs, medicaments and biological substances
CPT/HCPCS: 99284; 96374; 96375; 96361; 80076; 80048; 85025; 36415; 96376; 96372; J1200 ×2; J1885; J2765; J2405; J1170 ×3; J7120; J7040; A4606; A4663

== ENCOUNTER 2023-11-30 09:30 | Inpatient (IN) | payer OTHER ==
[~2023-11-30] VITALS: Ht 172.7 cm; Wt 65.8 kg
[2023-11-30] MEDS: IV NORMAL SALINE 1000 ML BAG IV ONE (09:56)
[2023-11-30] MEDS ORDERED: diphenhydrAMINE 50 MG/1 ML VIAL ONE (09:57)
[2023-11-30] MEDS ORDERED: METOCLOPRAMIDE HCL 10 MG/2 ML VIAL ONE (09:57)
[2023-11-30] MEDS ORDERED: HYDROMORPHONE 2 MG/1 ML DISP.SYRIN ONE ×2 (09:58→12:10)
[2023-11-30] MEDS: diphenhydrAMINE 50 MG/1 ML VIAL IV ONE (10:02)
[2023-11-30] MEDS: METOCLOPRAMIDE HCL 10 MG/2 ML VIAL IV ONE (10:02)
[2023-11-30] MEDS: HYDROMORPHONE 1 MG/1 ML DISP.SYRIN IV ONE ×2 (10:02→12:13)
[2023-11-30] MEDS ORDERED: KETOROLAC TROMETHAMINE 60 MG INJ IM ONE (10:03)
[2023-11-30 10:06] LABS: *BILIRUBIN,URIN NEGATIVE (NEGATIVE); *BLOOD, URINE 2+ (NEGATIVE); *CLARITY,URINE CLEAR (CLEAR); *COLOR,URINE YELLOW (YELLOW); *KETONES,URINE NEGATIVE (NEGATIVE); *PROTEIN,URINE 1+ (NEGATIVE); LEUKOCYTE ESTERASE ,URINE NEGATIVE (NEGATIVE); NITRITE, URINE NEGATIVE (NEGATIVE); UGLUCOSE NEGATIVE (NEGATIVE)
[2023-11-30] MEDS: KETOROLAC TROMETHAMINE 60 MG INJ IM ONE (10:09)
[2023-11-30 10:12] LABS: BACTERIA,URINE FEW /HPF (NONE SEEN); RBC,URINE 20-50 /HPF (0-3); WBC,URINE 0-3 /HPF (0-3)
[2023-11-30 10:20] LABS: ALANINE AMINOTRANSFERASE 44 U/L (16-63); ALBUMIN 3.1 g/dL (3.4-5.0); ALKALINE PHOSPHATASE 124 U/L (50-136); ASPARTATE AMINOTRANSFERASE 107 U/L (15-37); BILIRUBIN,TOTAL 5.1 mg/dL (0.2-1.0); CALCIUM 7.2 mg/dL (8.5-10.1); CARBON DIOXIDE 26 mmol/L (21-32); CHLORIDE 105 mmol/L (98-107); CREATININE 0.7 mg/dL (0.6-1.3); GLUCOSE 89 mg/dL (74-106); POTASSIUM 4.1 mmol/L (3.5-5.1); SODIUM SERUM 139 mmol/L (136-145); TOTAL PROTEIN, SERUM 8.2 g/dL (6.4-8.2); UREA NITROGEN, BLOOD 6 mg/dL (7-18)
[2023-11-30 10:21] LABS: *AMPHETAMINE, URINE NEGATIVE (NEGATIVE); *BARBITURATE, URINE NEGATIVE (NEGATIVE); *BENZODIAZEPINE, URINE NEGATIVE (NEGATIVE); *CANNABINOID, URINE POSITIVE (NEGATIVE); *COCCAINE, URINE NEGATIVE (NEGATIVE); *OPIATE, URINE NEGATIVE (NEGATIVE); *PHENCYCLIDINE SCREEN,URINE NEGATIVE (NEGATIVE); BASOPHILS # (AUTO) 0.2 K/UL (0.0-0.2); BASOPHILS % (AUTO) 2.2 % (0.0-2.0); EOSINOPHILS # (AUTO) 0.4 K/uL (0.0-0.7); EOSINOPHILS % (AUTO) 3.3 % (0.0-7.0); FENTANYL, URINE NEGATIVE (NEGATIVE); LYMPHOCYTES # (AUTO) 3.7 K/uL (0.8-4.8); MONOCYTES # (AUTO) 0.8 K/uL (0.1-1.30); MONOCYTES % (AUTO) 7.4 % (0.0-11.0); NEUTROPHILS % (AUTO) 54.1 % (38.5-71.5); PLATELET COUNT (AUTO) 276 K/uL (152-348); WHITE BLOOD COUNT (AUTO) 11.1 K/uL (3.6-10.2)
[2023-11-30 10:27] LABS: DIFFERENTIAL COMMENT 1
[2023-11-30 11:40] LABS: HEMATOCRIT 17.9 % (36.7-47.1); HEMOGLOBIN 6.8 g/dL (12.5-16.3); MEAN CORPUSCULAR HEMOGLOBIN 34.1 uug (23.8-33.4); MEAN CORPUSCULAR HGB CONC 38 g/dL (32.5-36.3); MEAN CORPUSCULAR VOLUME 90.3 fL (73.0-96.2); RED CELL DISTRIBUTION WIDTH 27.1 % (12.1-16.2)
[2023-11-30 11:41] LABS: RED BLOOD CELL COUNT(AUTO) 1.99 MIL/uL (4.06-5.63)
[2023-11-30] MEDS ORDERED: ONDANSETRON 4 MG/2 ML VIAL ONE (12:10)
[2023-11-30] MEDS: ONDANSETRON 4 MG/2 ML VIAL IV ONE (12:13)
[2023-11-30 12:29] LABS: ANISOCYTOSIS 3+; EOSINOPHILS % (MANUAL) 1 % (0-8); LYMPHOCYTES % (MANUAL) 31 % (20-40); MONOCYTES % (MANUAL) 9 % (2-10); NEUTROPHILS % (MANUAL) 59 % (42-75); PLATELET ESTIMATE ADEQUATE
[2023-11-30] MEDS ORDERED: HYDROCODONE/APAP 10-325 MG TABLET PO PRN (13:15)
[2023-11-30] MEDS ORDERED: ACETAMINOPHEN 325 MG TABLET PO PRN (13:15)
[2023-11-30] MEDS ORDERED: MAGNESIUM HYDROXIDE 30 ML LIQUID UDC PO PRN (13:15)
[2023-11-30] MEDS ORDERED: IV NS 1000 ML 1,000 ML IV PRN (13:15)
[2023-11-30] MEDS ORDERED: REMEDY ESSENTIAL ZINC PASTE 113 GM TP PRN (13:15)
[2023-11-30] MEDS: HYDROMORPHONE 1 MG/1 ML DISP.SYRIN IV PRN (16:21)
[2023-11-30 16:44] VITALS: BP 117/78; TEMP 98.3; O2SAT 95
[2023-11-30] MEDS: IV NS 1000 ML 1,000 ML IV PRN (19:13)
[2023-11-30 20:05] VITALS: BP 108/51; TEMP 98.2; O2SAT 100
[2023-12-01] VITALS (9 sets, daily range): BP systolic 122–145; BP diastolic 58–79; TEMP 97.2–98.2; O2SAT 18–100
[2023-12-01] MEDS: ONDANSETRON 4 MG/2 ML VIAL IV PRN (00:34)
[2023-12-01] MEDS: PANTOPRAZOLE SODIUM 40 MG TABLET.DR PO SCH (06:12)
[2023-12-01 06:43] LABS: BASOPHILS # (AUTO) 0.1 K/UL (0.0-0.2); BASOPHILS % (AUTO) 0.9 % (0.0-2.0); EOSINOPHILS # (AUTO) 2.9 K/uL (0.0-0.7); EOSINOPHILS % (AUTO) 23.6 % (0.0-7.0); LYMPHOCYTES # (AUTO) 2.1 K/uL (0.8-4.8); LYMPHOCYTES % (AUTO) 17.4 % (20.5-51.5); MEAN CORPUSCULAR HEMOGLOBIN 32.6 uug (23.8-33.4); MEAN CORPUSCULAR HGB CONC 36 g/dL (32.5-36.3); MEAN CORPUSCULAR VOLUME 90.2 fL (73.0-96.2); MONOCYTES # (AUTO) 0.9 K/uL (0.1-1.30); MONOCYTES % (AUTO) 7.3 % (0.0-11.0); NEUTROPHILS # (AUTO) 6.2 K/uL (1.8-8.9); NEUTROPHILS % (AUTO) 50.8 % (38.5-71.5); PLATELET COUNT (AUTO) 243 K/uL (152-348); RED CELL DISTRIBUTION WIDTH 26.5 % (12.1-16.2); WHITE BLOOD COUNT (AUTO) 12.2 K/uL (3.6-10.2)
[2023-12-01 06:52] LABS: DIFFERENTIAL COMMENT 1; HEMATOCRIT 19.7 % (36.7-47.1); HEMOGLOBIN 7.1 g/dL (12.5-16.3); RED BLOOD CELL COUNT(AUTO) 2.18 MIL/uL (4.06-5.63)
[2023-12-01 08:34] LABS: CALCIUM 8.4 mg/dL (8.5-10.1); CARBON DIOXIDE 26 mmol/L (21-32); CHLORIDE 106 mmol/L (98-107); CREATININE 0.7 mg/dL (0.6-1.3); GLUCOSE 90 mg/dL (74-106); MAGNESIUM 1.8 mg/dL (1.8-2.4); PHOSPHOROUS 3.9 mg/dL (2.5-4.9); SODIUM SERUM 138 mmol/L (136-145); UREA NITROGEN, BLOOD 5 mg/dL (7-18)
[2023-12-01 08:35] LABS: POTASSIUM 4.2 mmol/L (3.5-5.1)
[2023-12-01] MEDS: HYDROMORPHONE 2 MG/1 ML DISP.SYRIN IV PRN (13:38)
[2023-12-02 06:00] VITALS: BP 139/72; TEMP 98.6; O2SAT 97
[2023-12-02 07:07] LABS: BASOPHILS # (AUTO) 0.1 K/UL (0.0-0.2); BASOPHILS % (AUTO) 0.6 % (0.0-2.0); EOSINOPHILS # (AUTO) 0.4 K/uL (0.0-0.7); EOSINOPHILS % (AUTO) 3.5 % (0.0-7.0); LYMPHOCYTES # (AUTO) 4.4 K/uL (0.8-4.8); LYMPHOCYTES % (AUTO) 43.3 % (20.5-51.5); MEAN CORPUSCULAR HEMOGLOBIN 33.4 uug (23.8-33.4); MEAN CORPUSCULAR HGB CONC 37 g/dL (32.5-36.3); MEAN CORPUSCULAR VOLUME 89.4 fL (73.0-96.2); MONOCYTES % (AUTO) 9.4 % (0.0-11.0); NEUTROPHILS # (AUTO) 4.4 K/uL (1.8-8.9); NEUTROPHILS % (AUTO) 43.2 % (38.5-71.5); PLATELET COUNT (AUTO) 247 K/uL (152-348); RED CELL DISTRIBUTION WIDTH 25.3 % (12.1-16.2); WHITE BLOOD COUNT (AUTO) 10.2 K/uL (3.6-10.2)
[2023-12-02 07:17] LABS: CALCIUM 8.7 mg/dL (8.5-10.1); CARBON DIOXIDE 30 mmol/L (21-32); CHLORIDE 105 mmol/L (98-107); CREATININE 0.8 mg/dL (0.6-1.3); GLUCOSE 107 mg/dL (74-106); SODIUM SERUM 141 mmol/L (136-145); UREA NITROGEN, BLOOD 4 mg/dL (7-18)
[2023-12-02 07:28] LABS: DIFFERENTIAL COMMENT 1
[2023-12-02 07:29] LABS: HEMATOCRIT 19.7 % (36.7-47.1); HEMOGLOBIN 7.4 g/dL (12.5-16.3)
== END 2023-12-02 11:00 | disposition home or self-care (01) | DRG 662 ==
LOC: ER 09:30 → MEDSURG3 15:14
PROVIDERS: ADMIT Nurse Practitioner Acute Care; ATTEND Nurse Practitioner Acute Care
PROC: 30233N1 Transfusion of Nonautologous Red Blood Cells into Peripheral Vein, Percutaneous Approach (ICD-10-PCS; principal; 2023-11-30)
DX: D57.00 Hb-SS disease with crisis, unspecified (principal); E44.1 Mild protein-calorie malnutrition; E88.09 Other disorders of plasma-protein metabolism, not elsewhere classified; R74.01 Elevation of levels of liver transaminase levels; D72.829 Elevated white blood cell count, unspecified; M54.50 Low back pain, unspecified; Z90.49 Acquired absence of other specified parts of digestive tract; Z91.014 Allergy to mammalian meats
CPT/HCPCS: 36415; 70030-TC; 83735; 84100; 85025; 86850; 86900; 86901; 86920; G0378; J1170; J1200; J1885; J2405; J2765; J7040; P9016

== ENCOUNTER 2024-01-18 06:49 | Emergency (ER) | payer MEDICAID, OTHER ==
[~2024-01-18] VITALS: Ht 172.7 cm; Wt 68.0 kg
[~2024-01-18 06:49] MED LIST changes: -HYDR-3980 PO; -HYDR4TAB4 PO; -OXYC-128 PO; -OXYC30TA2 PO
[2024-01-18] MEDS ORDERED: diphenhydrAMINE 50 MG/1 ML VIAL ONE ×2 (07:31→08:02)
[2024-01-18] MEDS ORDERED: HYDROMORPHONE 2 MG/1 ML DISP.SYRIN ONE ×3 (07:31→09:56)
[2024-01-18] MEDS ORDERED: KETOROLAC TROMETHAMINE 30 MG INJ ONE (07:32)
[2024-01-18] MEDS: KETOROLAC TROMETHAMINE 30 MG INJ IVP ONE (07:37)
[2024-01-18] MEDS: IV NS 1000 ML 1,000 ML IV ONE ×2 (07:37→08:28)
[2024-01-18] MEDS: diphenhydrAMINE 50 MG/1 ML VIAL IV ONE ×2 (07:37→08:06)
[2024-01-18] MEDS: HYDROMORPHONE 1 MG/1 ML DISP.SYRIN IV ONE ×3 (07:37→09:59)
[2024-01-18 07:51] LABS: BASOPHILS # (AUTO) 0.1 K/UL (0.0-0.2); BASOPHILS % (AUTO) 0.7 % (0.0-2.0); DIFFERENTIAL COMMENT 0; EOSINOPHILS # (AUTO) 0.3 K/uL (0.0-0.7); EOSINOPHILS % (AUTO) 3.2 % (0.0-7.0); LYMPHOCYTES % (AUTO) 38.7 % (20.5-51.5); MEAN CORPUSCULAR HGB CONC 37 g/dL (32.5-36.3); MEAN CORPUSCULAR VOLUME 78.6 fL (73.0-96.2); MONOCYTES # (AUTO) 1.3 K/uL (0.1-1.30); MONOCYTES % (AUTO) 12.4 % (0.0-11.0); NEUTROPHILS # (AUTO) 4.6 K/uL (1.8-8.9); PLATELET COUNT (AUTO) 384 K/uL (152-348); RED CELL DISTRIBUTION WIDTH 26.5 % (12.1-16.2); WHITE BLOOD COUNT (AUTO) 10.3 K/uL (3.6-10.2)
[2024-01-18 07:56] LABS: ALANINE AMINOTRANSFERASE 38 U/L (16-63); ALBUMIN 3.8 g/dL (3.4-5.0); ALKALINE PHOSPHATASE 115 U/L (50-136); ASPARTATE AMINOTRANSFERASE 69 U/L (15-37); BILIRUBIN,DIRECT 0.4 mg/dL (0.0-0.2); BILIRUBIN,TOTAL 4.1 mg/dL (0.2-1.0); CARBON DIOXIDE 28 mmol/L (21-32); CHLORIDE 107 mmol/L (98-107); CREATININE 0.6 mg/dL (0.6-1.3); GLUCOSE 99 mg/dL (74-106); POTASSIUM 4.6 mmol/L (3.5-5.1); SODIUM SERUM 141 mmol/L (136-145); TOTAL PROTEIN, SERUM 7.8 g/dL (6.4-8.2); UREA NITROGEN, BLOOD 6 mg/dL (7-18)
[2024-01-18 08:02] LABS: HEMATOCRIT 18.1 % (36.7-47.1)
[2024-01-18 08:03] LABS: HEMOGLOBIN 6.7 g/dL (12.5-16.3)
[2024-01-18 10:57] LABS: EOSINOPHILS % (MANUAL) 4 % (0-8); LYMPHOCYTES % (MANUAL) 39 % (20-40); MONOCYTES % (MANUAL) 12 % (2-10); NEUTROPHILS % (MANUAL) 45 % (42-75); PLATELET ESTIMATE INCREASED
[2024-01-18 12:02] VITALS: BP 116/62; O2SAT 100
== END 2024-01-18 12:03 | disposition home or self-care (01) ==
LOC: ER 06:49
DX: D57.00 Hb-SS disease with crisis, unspecified (principal); Z90.49 Acquired absence of other specified parts of digestive tract; Z79.899 Other long term (current) drug therapy; Z60.2 Problems related to living alone
CPT/HCPCS: 99285; 96374; 96375; 96361; 80076; 80048; 85025; 36415; 96376; 85007; J1200 ×2; J1885; J1171 ×3; J7040 ×2; 70030-TC; A4606; A4663

== ENCOUNTER 2024-02-17 10:54 | Emergency (ER) | payer OTHER ==
[~2024-02-17] VITALS: Ht 172.7 cm; Wt 68.0 kg
[2024-02-17] MEDS ORDERED: ONDANSETRON 4 MG/2 ML VIAL ONE (11:40)
[2024-02-17] MEDS ORDERED: KETOROLAC TROMETHAMINE 30 MG INJ ONE (11:40)
[2024-02-17] MEDS ORDERED: diphenhydrAMINE 50 MG/1 ML VIAL ONE ×4 (11:40→16:02)
[2024-02-17] MEDS ORDERED: HYDROMORPHONE 2 MG/1 ML DISP.SYRIN ONE ×4 (11:41→16:02)
[2024-02-17] MEDS: HYDROMORPHONE 1 MG/1 ML DISP.SYRIN IV ONE ×3 (11:55→16:10)
[2024-02-17] MEDS: diphenhydrAMINE 50 MG/1 ML VIAL IV ONE ×3 (11:55→16:10)
[2024-02-17] MEDS: ONDANSETRON 4 MG/2 ML VIAL IV ONE (11:56)
[2024-02-17] MEDS: IV NS 1000 ML 1,000 ML IV ONE (11:56)
[2024-02-17] MEDS: KETOROLAC TROMETHAMINE 30 MG INJ IVP ONE (11:57)
[2024-02-17 12:33] LABS: BASOPHILS # (AUTO) 0.2 K/UL (0.0-0.2); BASOPHILS % (AUTO) 1.5 % (0.0-2.0); EOSINOPHILS # (AUTO) 0.4 K/uL (0.0-0.7); EOSINOPHILS % (AUTO) 3.5 % (0.0-7.0); LYMPHOCYTES # (AUTO) 4.7 K/uL (0.8-4.8); LYMPHOCYTES % (AUTO) 41.6 % (20.5-51.5); MEAN CORPUSCULAR HEMOGLOBIN 30.5 uug (23.8-33.4); MEAN CORPUSCULAR HGB CONC 37 g/dL (32.5-36.3); MEAN CORPUSCULAR VOLUME 83.2 fL (73.0-96.2); MONOCYTES # (AUTO) 0.9 K/uL (0.1-1.30); MONOCYTES % (AUTO) 8.1 % (0.0-11.0); NEUTROPHILS # (AUTO) 5.1 K/uL (1.8-8.9); NEUTROPHILS % (AUTO) 45.3 % (38.5-71.5); PLATELET COUNT (AUTO) 324 K/uL (152-348); RED CELL DISTRIBUTION WIDTH 27.3 % (12.1-16.2); WHITE BLOOD COUNT (AUTO) 11.2 K/uL (3.6-10.2)
[2024-02-17 12:43] LABS: CALCIUM 8.9 mg/dL (8.5-10.1); CARBON DIOXIDE 24 mmol/L (21-32); CHLORIDE 107 mmol/L (98-107); CREATININE 0.6 mg/dL (0.6-1.3); GLUCOSE 96 mg/dL (74-106); POTASSIUM 3.7 mmol/L (3.5-5.1); SODIUM SERUM 141 mmol/L (136-145); UREA NITROGEN, BLOOD 7 mg/dL (7-18)
[2024-02-17 13:07] LABS: HEMOGLOBIN 6.6 g/dL (12.5-16.3); RED BLOOD CELL COUNT(AUTO) 2.16 MIL/uL (4.06-5.63)
[2024-02-17 13:08] LABS: DIFFERENTIAL COMMENT 1; HEMATOCRIT 17.9 % (36.7-47.1)
[2024-02-17 16:28] VITALS: O2SAT 100
== END 2024-02-17 16:43 | disposition home or self-care (01) ==
LOC: ER 10:54
DX: D57.00 Hb-SS disease with crisis, unspecified (principal); Z90.49 Acquired absence of other specified parts of digestive tract; Z79.899 Other long term (current) drug therapy
CPT/HCPCS: 99285; 96374; 96375; 96361; 80048; 85025; 36415; 96376; J1200 ×4; J1885; J2405; J1171 ×4; J7040; A4606; A4663

== ENCOUNTER 2024-04-07 11:07 | Emergency (ER) | payer OTHER ==
[~2024-04-07] VITALS: Ht 172.7 cm; Wt 68.0 kg
[2024-04-07] MEDS: diphenhydrAMINE 50 MG/1 ML VIAL IV ONE ×4 (11:41→16:00)
[2024-04-07] MEDS: HYDROMORPHONE 1 MG/1 ML DISP.SYRIN IV ONE ×4 (11:41→15:58)
[2024-04-07] MEDS: KETOROLAC TROMETHAMINE 15 MG INJ IVP ONE (11:42)
[2024-04-07] MEDS: ONDANSETRON 4 MG/2 ML VIAL IV ONE (11:42)
[2024-04-07] MEDS: IV NORMAL SALINE 1000 ML BAG IV ONE ×2 (11:42→12:18)
[2024-04-07] MEDS ORDERED: HYDROMORPHONE 2 MG/1 ML DISP.SYRIN ONE ×4 (11:43→15:53)
[2024-04-07] MEDS ORDERED: KETOROLAC TROMETHAMINE 15 MG INJ ONE (11:43)
[2024-04-07] MEDS ORDERED: diphenhydrAMINE 50 MG/1 ML VIAL ONE ×4 (11:43→15:53)
[2024-04-07] MEDS ORDERED: ONDANSETRON 4 MG/2 ML VIAL ONE (11:43)
[2024-04-07 11:50] LABS: BASOPHILS # (AUTO) 0.2 K/UL (0.0-0.2); EOSINOPHILS # (AUTO) 0.4 K/uL (0.0-0.7); EOSINOPHILS % (AUTO) 3.5 % (0.0-7.0); LYMPHOCYTES # (AUTO) 4.5 K/uL (0.8-4.8); LYMPHOCYTES % (AUTO) 38.6 % (20.5-51.5); MEAN CORPUSCULAR HGB CONC 39 g/dL (32.5-36.3); MONOCYTES # (AUTO) 1.3 K/uL (0.1-1.30); MONOCYTES % (AUTO) 11.5 % (0.0-11.0); NEUTROPHILS # (AUTO) 5.2 K/uL (1.8-8.9); NEUTROPHILS % (AUTO) 44.4 % (38.5-71.5); PLATELET COUNT (AUTO) 304 K/uL (152-348); RED CELL DISTRIBUTION WIDTH 25.6 % (12.1-16.2); WHITE BLOOD COUNT (AUTO) 11.6 K/uL (3.6-10.2)
[2024-04-07 11:58] LABS: CALCIUM 8.3 mg/dL (8.5-10.1); CARBON DIOXIDE 26 mmol/L (21-32); CHLORIDE 107 mmol/L (98-107); CREATININE 0.7 mg/dL (0.6-1.3); GLUCOSE 105 mg/dL (74-106); POTASSIUM 4.3 mmol/L (3.5-5.1); SODIUM SERUM 142 mmol/L (136-145); UREA NITROGEN, BLOOD 6 mg/dL (7-18)
[2024-04-07 12:04] LABS: ALANINE AMINOTRANSFERASE 36 U/L (16-63); ALBUMIN 3.6 g/dL (3.4-5.0); ALKALINE PHOSPHATASE 127 U/L (50-136); ASPARTATE AMINOTRANSFERASE 85 U/L (15-37); BILIRUBIN,TOTAL 4.2 mg/dL (0.2-1.0)
[2024-04-07 12:08] LABS: HEMOGLOBIN 7.2 g/dL (12.5-16.3); RED BLOOD CELL COUNT(AUTO) 2.18 MIL/uL (4.06-5.63)
[2024-04-07 12:09] LABS: DIFFERENTIAL COMMENT 1; HEMATOCRIT 18.5 % (36.7-47.1)
[2024-04-07 16:16] VITALS: O2SAT 98
== END 2024-04-07 16:17 | disposition home or self-care (01) ==
LOC: ER 11:07
DX: D57.00 Hb-SS disease with crisis, unspecified (principal); Z90.49 Acquired absence of other specified parts of digestive tract; Z60.2 Problems related to living alone
CPT/HCPCS: 99284; 96374; 96375; 96361; 80053; 85025; 36415; 96376; J1885; J1171 ×4; J1200 ×4; J2405; J7040 ×2; A4606; A4663

== ENCOUNTER 2024-04-10 12:35 | Inpatient (IN) | payer OTHER ==
[~2024-04-10] VITALS: Ht 175.3 cm; Wt 68.0 kg
[2024-04-10 15:06] LABS: BASOPHILS # (AUTO) 0.2 K/UL (0.0-0.2); BASOPHILS % (AUTO) 1.4 % (0.0-2.0); EOSINOPHILS # (AUTO) 0.6 K/uL (0.0-0.7); EOSINOPHILS % (AUTO) 4.4 % (0.0-7.0); LYMPHOCYTES # (AUTO) 5.5 K/uL (0.8-4.8); MEAN CORPUSCULAR HEMOGLOBIN 32.9 uug (23.8-33.4); MEAN CORPUSCULAR HGB CONC 39 g/dL (32.5-36.3); MONOCYTES # (AUTO) 1.3 K/uL (0.1-1.30); MONOCYTES % (AUTO) 9.8 % (0.0-11.0); NEUTROPHILS # (AUTO) 5.5 K/uL (1.8-8.9); NEUTROPHILS % (AUTO) 42.4 % (38.5-71.5); PLATELET COUNT (AUTO) 308 K/uL (152-348); RED CELL DISTRIBUTION WIDTH 28.1 % (12.1-16.2); WHITE BLOOD COUNT (AUTO) 13.1 K/uL (3.6-10.2)
[2024-04-10] MEDS ORDERED: KETOROLAC TROMETHAMINE 15 MG INJ ONE (15:25)
[2024-04-10] MEDS ORDERED: diphenhydrAMINE 50 MG/1 ML VIAL ONE ×2 (15:25→22:59)
[2024-04-10] MEDS ORDERED: HYDROMORPHONE 2 MG/1 ML DISP.SYRIN ONE (15:25)
[2024-04-10 15:27] LABS: ALANINE AMINOTRANSFERASE 33 U/L (16-63); ALBUMIN 3.5 g/dL (3.4-5.0); ALKALINE PHOSPHATASE 130 U/L (50-136); ASPARTATE AMINOTRANSFERASE 100 U/L (15-37); BILIRUBIN,TOTAL 4.4 mg/dL (0.2-1.0); CALCIUM 8.6 mg/dL (8.5-10.1); CARBON DIOXIDE 27 mmol/L (21-32); CHLORIDE 105 mmol/L (98-107); CREATININE 0.8 mg/dL (0.6-1.3); GLUCOSE 85 mg/dL (74-106); POTASSIUM 4.3 mmol/L (3.5-5.1); SODIUM SERUM 139 mmol/L (136-145); TOTAL PROTEIN, SERUM 8.1 g/dL (6.4-8.2); UREA NITROGEN, BLOOD 7 mg/dL (7-18)
[2024-04-10] MEDS: IV NORMAL SALINE 1000 ML BAG IV ONE (15:30)
[2024-04-10] MEDS: diphenhydrAMINE 50 MG/1 ML VIAL IV ONE (15:32)
[2024-04-10] MEDS: HYDROMORPHONE 1 MG/1 ML DISP.SYRIN IV ONE ×2 (15:33→20:00)
[2024-04-10] MEDS: KETOROLAC TROMETHAMINE 15 MG INJ IVP ONE (15:33)
[2024-04-10 15:43] LABS: RED BLOOD CELL COUNT(AUTO) 2.12 MIL/uL (4.06-5.63)
[2024-04-10 15:44] LABS: DIFFERENTIAL COMMENT 1
[2024-04-10] MEDS ORDERED: MAGNESIUM HYDROXIDE 30 ML LIQUID UDC PO PRN (16:15)
[2024-04-10] MEDS ORDERED: hydrALAZINE HCL 20 MG/1 ML VIAL IV PRN (16:15)
[2024-04-10] MEDS ORDERED: ONDANSETRON 4 MG/2 ML VIAL IV PRN (16:15)
[2024-04-10] MEDS: HYDROMORPHONE 1 MG/1 ML DISP.SYRIN IV PRN (17:00)
[2024-04-10] MEDS: IV NS 1000 ML 1,000 ML IV SCH (17:12)
[2024-04-10] MEDS ORDERED: HYDROMORPHONE 1 MG/1 ML DISP.SYRIN ONE ×2 (19:59→22:59)
[2024-04-10] MEDS: diphenhydrAMINE 50 MG/1 ML VIAL IV PRN (23:04)
[2024-04-11] MEDS ORDERED: diphenhydrAMINE 50 MG/1 ML VIAL ONE ×2 (02:36→15:32)
[2024-04-11] MEDS ORDERED: HYDROMORPHONE 1 MG/1 ML DISP.SYRIN ONE ×6 (02:36→19:42)
[2024-04-11 08:38] LABS: ALANINE AMINOTRANSFERASE 31 U/L (16-63); ALBUMIN 3.1 g/dL (3.4-5.0); ALKALINE PHOSPHATASE 110 U/L (50-136); ASPARTATE AMINOTRANSFERASE 83 U/L (15-37); BILIRUBIN,TOTAL 3.2 mg/dL (0.2-1.0); CALCIUM 7.8 mg/dL (8.5-10.1); CARBON DIOXIDE 28 mmol/L (21-32); CHLORIDE 110 mmol/L (98-107); CREATININE 0.7 mg/dL (0.6-1.3); GLUCOSE 91 mg/dL (74-106); PHOSPHOROUS 3.6 mg/dL (2.5-4.9); POTASSIUM 4.5 mmol/L (3.5-5.1); SODIUM SERUM 144 mmol/L (136-145); TOTAL PROTEIN, SERUM 7.1 g/dL (6.4-8.2); UREA NITROGEN, BLOOD 6 mg/dL (7-18)
[2024-04-11] MEDS ORDERED: FOLIC ACID 1 MG TABLET PO SCH (09:00)
[2024-04-11] MEDS: FOLIC ACID 1 MG TABLET PO SCH (09:00)
[2024-04-11 09:05] LABS: BASOPHILS # (AUTO) 0.2 K/UL (0.0-0.2); BASOPHILS % (AUTO) 1.4 % (0.0-2.0); DIFFERENTIAL COMMENT 0; EOSINOPHILS # (AUTO) 0.6 K/uL (0.0-0.7); EOSINOPHILS % (AUTO) 6.2 % (0.0-7.0); LYMPHOCYTES % (AUTO) 47.7 % (20.5-51.5); MEAN CORPUSCULAR HEMOGLOBIN 32.2 uug (23.8-33.4); MEAN CORPUSCULAR HGB CONC 37 g/dL (32.5-36.3); MEAN CORPUSCULAR VOLUME 86.3 fL (73.0-96.2); MONOCYTES # (AUTO) 0.9 K/uL (0.1-1.30); MONOCYTES % (AUTO) 8.4 % (0.0-11.0); NEUTROPHILS # (AUTO) 3.8 K/uL (1.8-8.9); NEUTROPHILS % (AUTO) 36.3 % (38.5-71.5); PLATELET COUNT (AUTO) 277 K/uL (152-348); RED CELL DISTRIBUTION WIDTH 26.6 % (12.1-16.2); WHITE BLOOD COUNT (AUTO) 10.4 K/uL (3.6-10.2)
[2024-04-11 09:07] LABS: RED BLOOD CELL COUNT(AUTO) 2.05 MIL/uL (4.06-5.63)
[2024-04-11 09:09] LABS: HEMATOCRIT 17.6 % (36.7-47.1); HEMOGLOBIN 6.6 g/dL (12.5-16.3)
[2024-04-11 12:22] LABS: BASOPHILS % (MANUAL) 1 % (0-2); EOSINOPHILS % (MANUAL) 7 % (0-8); LYMPHOCYTES % (MANUAL) 48 % (20-40); MONOCYTES % (MANUAL) 8 % (2-10); NEUTROPHILS % (MANUAL) 36 % (42-75)
[2024-04-11 12:23] LABS: PLATELET ESTIMATE ADEQUATE
[2024-04-11] MEDS ORDERED: FOLIC ACID 1 MG TABLET ONE (12:34)
[2024-04-11 14:13] LABS: HEMATOCRIT 18.5 % (36.7-47.1)
[2024-04-11 14:14] LABS: HEMOGLOBIN 6.8 g/dL (12.5-16.3)
[2024-04-11 22:14] VITALS: BP 100/57; TEMP 97.9; O2SAT 90
[2024-04-11] MEDS: IV NS 1000 ML 1,000 ML IV PRN (22:26)
[2024-04-12] VITALS (7 sets, daily range): BP systolic 99–140; BP diastolic 55–76; TEMP 97.2–98.9; O2SAT 91–98
[2024-04-12 02:08] LABS: HEMATOCRIT 16.6 % (36.7-47.1); HEMOGLOBIN 6.2 g/dL (12.5-16.3)
[2024-04-12] MEDS: ACETAMINOPHEN 325 MG TABLET PO PRN (06:09)
[2024-04-12 13:34] LABS: HEMOGLOBIN 7.8 g/dL (12.5-16.3)
[2024-04-12 14:55] LABS: HEMATOCRIT 21.5 % (36.7-47.1); HEMOGLOBIN 7.8 g/dL (12.5-16.3)
[2024-04-12 15:09] LABS: ALBUMIN 3.2 g/dL (3.4-5.0); BILIRUBIN,TOTAL 4.1 mg/dL (0.2-1.0); CALCIUM 8.3 mg/dL (8.5-10.1); CREATININE 0.9 mg/dL (0.6-1.3); POTASSIUM 4.5 mmol/L (3.5-5.1); TOTAL PROTEIN, SERUM 7.4 g/dL (6.4-8.2)
[2024-04-13 02:04] LABS: HEMATOCRIT 21.4 % (36.7-47.1); HEMOGLOBIN 7.9 g/dL (12.5-16.3)
[2024-04-13 06:02] VITALS: BP 120/71; TEMP 98.2; O2SAT 92
[2024-04-13 11:15] VITALS: BP 131/70; TEMP 98.9; O2SAT 95
== END 2024-04-13 11:15 | disposition home or self-care (01) | DRG 662 ==
LOC: ER 12:35 → TRANSITION 18:25 → MEDSURG3 04-11 20:49
PROVIDERS: ADMIT Internal Medicine; ATTEND Internal Medicine
PROC: 30233N1 Transfusion of Nonautologous Red Blood Cells into Peripheral Vein, Percutaneous Approach (ICD-10-PCS; principal; 2024-04-12)
DX: D57.00 Hb-SS disease with crisis, unspecified (principal); G89.4 Chronic pain syndrome; M25.552 Pain in left hip; M25.551 Pain in right hip; Z90.49 Acquired absence of other specified parts of digestive tract; Z91.014 Allergy to mammalian meats; M54.50 Low back pain, unspecified; R74.01 Elevation of levels of liver transaminase levels; R70.1 Abnormal plasma viscosity; I51.7 Cardiomegaly; Z87.81 Personal history of (healed) traumatic fracture
CPT/HCPCS: 36415; 70030-TC; 71045; 76705; 84100; 85018; 85025; 85610; 86850; 86870; 86900; 86901; 86920; A4606; A4663; G0378; J1171; J1200; J1885; J7040; P9016

== ENCOUNTER 2024-05-25 10:17 | Emergency (ER) | payer MEDICAID, OTHER ==
[~2024-05-25] VITALS: Ht 175.3 cm; Wt 68.0 kg
[2024-05-25] MEDS: IV NORMAL SALINE 1000 ML BAG IV ONE (10:37)
[2024-05-25] MEDS ORDERED: HYDROMORPHONE 2 MG/1 ML DISP.SYRIN ONE ×3 (10:37→12:59)
[2024-05-25] MEDS ORDERED: ONDANSETRON 4 MG/2 ML VIAL ONE ×3 (10:37→12:58)
[2024-05-25] MEDS ORDERED: diphenhydrAMINE 50 MG/1 ML VIAL ONE ×3 (10:37→12:58)
[2024-05-25] MEDS: diphenhydrAMINE 50 MG/1 ML VIAL IV ONE ×3 (10:38→13:00)
[2024-05-25] MEDS: KETOROLAC TROMETHAMINE 15 MG INJ IVP ONE ×3 (10:38→13:09)
[2024-05-25] MEDS: HYDROMORPHONE 1 MG/1 ML DISP.SYRIN IV ONE ×3 (10:38→13:00)
[2024-05-25] MEDS ORDERED: KETOROLAC TROMETHAMINE 15 MG INJ ONE ×3 (10:40→12:58)
[2024-05-25 10:48] LABS: BASOPHILS # (AUTO) 0.1 K/UL (0.0-0.2); BASOPHILS % (AUTO) 0.5 % (0.0-2.0); EOSINOPHILS # (AUTO) 0.1 K/uL (0.0-0.7); EOSINOPHILS % (AUTO) 0.6 % (0.0-7.0); LYMPHOCYTES % (AUTO) 28.4 % (20.5-51.5); MEAN CORPUSCULAR HEMOGLOBIN 33.6 uug (23.8-33.4); MEAN CORPUSCULAR HGB CONC 38 g/dL (32.5-36.3); MEAN CORPUSCULAR VOLUME 89.2 fL (73.0-96.2); MONOCYTES # (AUTO) 1.2 K/uL (0.1-1.30); MONOCYTES % (AUTO) 8.6 % (0.0-11.0); NEUTROPHILS # (AUTO) 8.6 K/uL (1.8-8.9); NEUTROPHILS % (AUTO) 61.9 % (38.5-71.5); PLATELET COUNT (AUTO) 309 K/uL (152-348); WHITE BLOOD COUNT (AUTO) 13.9 K/uL (3.6-10.2)
[2024-05-25 10:54] LABS: CALCIUM 8.8 mg/dL (8.5-10.1); POTASSIUM 4.4 mmol/L (3.5-5.1)
[2024-05-25 10:58] LABS: DIFFERENTIAL COMMENT 1; HEMOGLOBIN 7.1 g/dL (12.5-16.3); RED BLOOD CELL COUNT(AUTO) 2.12 MIL/uL (4.06-5.63)
[2024-05-25 11:05] LABS: HEMATOCRIT 18.9 % (36.7-47.1)
[2024-05-25 11:06] LABS: ALBUMIN 3.8 g/dL (3.4-5.0); BILIRUBIN,DIRECT 0.5 mg/dL (0.0-0.2); BILIRUBIN,TOTAL 4.6 mg/dL (0.2-1.0); TOTAL PROTEIN, SERUM 7.6 g/dL (6.4-8.2)
[2024-05-25] MEDS: ONDANSETRON 4 MG/2 ML VIAL IV ONE ×2 (11:50→13:09)
[2024-05-25 13:10] VITALS: O2SAT 97
== END 2024-05-25 13:11 | disposition home or self-care (01) ==
LOC: ER 10:17
DX: D57.00 Hb-SS disease with crisis, unspecified (principal); Z90.49 Acquired absence of other specified parts of digestive tract; Z60.2 Problems related to living alone
CPT/HCPCS: 99284; 96374; 96375; 96361; 80076; 80048; 85025; 36415; 96376; J1885 ×3; J1171 ×3; J1200 ×3; J2405 ×3; J7040; A4606; A4663

== ENCOUNTER 2024-06-07 10:01 | Emergency (ER) | payer OTHER ==
[~2024-06-07] VITALS: Ht 175.3 cm; Wt 68.5 kg
[2024-06-07] MEDS ORDERED: HYDROMORPHONE 2 MG/1 ML DISP.SYRIN ONE ×2 (13:01→15:12)
[2024-06-07] MEDS ORDERED: ONDANSETRON 4 MG/2 ML VIAL ONE (13:01)
[2024-06-07] MEDS ORDERED: diphenhydrAMINE 50 MG/1 ML VIAL ONE ×2 (13:01→15:12)
[2024-06-07] MEDS ORDERED: KETOROLAC TROMETHAMINE 15 MG INJ ONE (13:01)
[2024-06-07] MEDS: diphenhydrAMINE 50 MG/1 ML VIAL IV ONE ×2 (13:06→15:13)
[2024-06-07] MEDS: IV NORMAL SALINE 1000 ML BAG IV ONE (13:08)
[2024-06-07] MEDS: ONDANSETRON 4 MG/2 ML VIAL IV ONE (13:08)
[2024-06-07] MEDS: KETOROLAC TROMETHAMINE 15 MG INJ IVP ONE (13:09)
[2024-06-07] MEDS: HYDROMORPHONE 1 MG/1 ML DISP.SYRIN IV ONE ×2 (13:10→15:13)
[2024-06-07 13:33] LABS: BASOPHILS # (AUTO) 0.1 K/UL (0.0-0.2); BASOPHILS % (AUTO) 0.9 % (0.0-2.0); EOSINOPHILS # (AUTO) 0.2 K/uL (0.0-0.7); EOSINOPHILS % (AUTO) 1.2 % (0.0-7.0); LYMPHOCYTES # (AUTO) 4.1 K/uL (0.8-4.8); LYMPHOCYTES % (AUTO) 31.3 % (20.5-51.5); MEAN CORPUSCULAR HEMOGLOBIN 34.2 uug (23.8-33.4); MEAN CORPUSCULAR HGB CONC 38 g/dL (32.5-36.3); MONOCYTES # (AUTO) 1.8 K/uL (0.1-1.30); MONOCYTES % (AUTO) 13.3 % (0.0-11.0); NEUTROPHILS # (AUTO) 7.1 K/uL (1.8-8.9); NEUTROPHILS % (AUTO) 53.3 % (38.5-71.5); PLATELET COUNT (AUTO) 348 K/uL (152-348); RED CELL DISTRIBUTION WIDTH 25.1 % (12.1-16.2); RETICULOCYTE COUNT 13.1 % (0.4-2.2); WHITE BLOOD COUNT (AUTO) 13.2 K/uL (3.6-10.2)
[2024-06-07 13:35] LABS: DIFFERENTIAL COMMENT 1; HEMATOCRIT 19.4 % (36.7-47.1); HEMOGLOBIN 7.3 g/dL (12.5-16.3); RED BLOOD CELL COUNT(AUTO) 2.14 MIL/uL (4.06-5.63)
[2024-06-07 13:51] LABS: CALCIUM 8.9 mg/dL (8.5-10.1); CREATININE 0.9 mg/dL (0.6-1.3); POTASSIUM 4.9 mmol/L (3.5-5.1)
[2024-06-07 13:56] LABS: ALBUMIN 3.8 g/dL (3.4-5.0); BILIRUBIN,TOTAL 4.9 mg/dL (0.2-1.0); TOTAL PROTEIN, SERUM 7.7 g/dL (6.4-8.2)
[2024-06-07 15:54] VITALS: BP 107/61; O2SAT 99
== END 2024-06-07 15:55 | disposition home or self-care (01) ==
LOC: ER 10:03
DX: G89.4 Chronic pain syndrome (principal); M79.10 Myalgia, unspecified site; D57.1 Sickle-cell disease without crisis; F11.20 Opioid dependence, uncomplicated; Z90.49 Acquired absence of other specified parts of digestive tract; Z60.2 Problems related to living alone
CPT/HCPCS: 99284; 96374; 96375; 96361; 80053; 85025; 85044; 36415; 96376; J1885; J1171 ×2; J1200 ×2; J2405; J7040 ×2; 70030-TC; A4606; A4663

== ENCOUNTER 2024-06-28 07:18 | Emergency (ER) | payer OTHER ==
[~2024-06-28] VITALS: Ht 175.3 cm; Wt 70.3 kg
[2024-06-28] MEDS ORDERED: diphenhydrAMINE 50 MG/1 ML VIAL ONE ×5 (07:36→12:19)
[2024-06-28] MEDS ORDERED: HYDROMORPHONE 2 MG/1 ML DISP.SYRIN ONE ×5 (07:36→12:20)
[2024-06-28] MEDS ORDERED: KETOROLAC TROMETHAMINE 15 MG INJ ONE (07:36)
[2024-06-28] MEDS ORDERED: ONDANSETRON 4 MG/2 ML VIAL ONE ×2 (07:36→09:00)
[2024-06-28] MEDS: diphenhydrAMINE 50 MG/1 ML VIAL IV ONE ×5 (07:54→12:18)
[2024-06-28] MEDS: ONDANSETRON 4 MG/2 ML VIAL IV ONE ×2 (07:55→09:01)
[2024-06-28] MEDS: IV NORMAL SALINE 1000 ML BAG IV ONE ×2 (07:55→11:12)
[2024-06-28] MEDS: KETOROLAC TROMETHAMINE 15 MG INJ IVP ONE (07:55)
[2024-06-28] MEDS: HYDROMORPHONE 1 MG/1 ML DISP.SYRIN IV ONE ×5 (07:55→12:18)
[2024-06-28 08:09] LABS: BASOPHILS # (AUTO) 0.1 K/UL (0.0-0.2); BASOPHILS % (AUTO) 0.9 % (0.0-2.0); EOSINOPHILS # (AUTO) 0.5 K/uL (0.0-0.7); HEMATOCRIT 21.3 % (36.7-47.1); LYMPHOCYTES # (AUTO) 4.5 K/uL (0.8-4.8); LYMPHOCYTES % (AUTO) 36.3 % (20.5-51.5); MEAN CORPUSCULAR HEMOGLOBIN 34.1 uug (23.8-33.4); MEAN CORPUSCULAR HGB CONC 38 g/dL (32.5-36.3); MEAN CORPUSCULAR VOLUME 90.3 fL (73.0-96.2); MONOCYTES # (AUTO) 1.4 K/uL (0.1-1.30); MONOCYTES % (AUTO) 10.9 % (0.0-11.0); NEUTROPHILS % (AUTO) 47.9 % (38.5-71.5); PLATELET COUNT (AUTO) 320 K/uL (152-348); RED CELL DISTRIBUTION WIDTH 25.9 % (12.1-16.2); RETICULOCYTE COUNT 11.3 % (0.4-2.2); WHITE BLOOD COUNT (AUTO) 12.4 K/uL (3.6-10.2)
[2024-06-28 08:19] LABS: CALCIUM 8.8 mg/dL (8.5-10.1); CARBON DIOXIDE 24 mmol/L (21-32); CHLORIDE 107 mmol/L (98-107); CREATININE 0.7 mg/dL (0.6-1.3); GLUCOSE 105 mg/dL (74-106); POTASSIUM 4.1 mmol/L (3.5-5.1); SODIUM SERUM 141 mmol/L (136-145); UREA NITROGEN, BLOOD 7 mg/dL (7-18)
[2024-06-28 08:22] LABS: DIFFERENTIAL COMMENT 1; RED BLOOD CELL COUNT(AUTO) 2.35 MIL/uL (4.06-5.63)
[2024-06-28 08:24] LABS: ALANINE AMINOTRANSFERASE 36 U/L (16-63); ALBUMIN 3.6 g/dL (3.4-5.0); ALKALINE PHOSPHATASE 113 U/L (50-136); ASPARTATE AMINOTRANSFERASE 100 U/L (15-37); BILIRUBIN,TOTAL 4.7 mg/dL (0.2-1.0); TOTAL PROTEIN, SERUM 7.7 g/dL (6.4-8.2)
[2024-06-28] MEDS: IV NS 1000 ML 1,000 ML IV ONE (11:15)
[2024-06-28 12:28] VITALS: O2SAT 96
== END 2024-06-28 12:29 | disposition home or self-care (01) ==
LOC: ER 07:18
DX: D57.00 Hb-SS disease with crisis, unspecified (principal); D64.9 Anemia, unspecified; E80.7 Disorder of bilirubin metabolism, unspecified; Z90.49 Acquired absence of other specified parts of digestive tract; Z60.2 Problems related to living alone
CPT/HCPCS: 99285; 96374; 96375; 96361; 80053; 85025; 85044; 36415; 96376; J1885; J1171 ×5; J1200 ×5; J2405 ×2; J7040 ×2; 70030-TC; A4606; A4663

== ENCOUNTER 2024-11-01 09:49 | Emergency (ER) | payer OTHER ==
[~2024-11-01] VITALS: Ht 175.3 cm; Wt 70.3 kg
[2024-11-01] MEDS ORDERED: KETOROLAC TROMETHAMINE 15 MG INJ ONE ×2 (10:16→12:54)
[2024-11-01] MEDS ORDERED: ONDANSETRON 4 MG/2 ML VIAL ONE ×3 (10:16→12:53)
[2024-11-01] MEDS ORDERED: HYDROMORPHONE 2 MG/1 ML DISP.SYRIN ONE ×3 (10:16→12:54)
[2024-11-01] MEDS ORDERED: diphenhydrAMINE 50 MG/1 ML VIAL ONE ×3 (10:16→12:53)
[2024-11-01] MEDS: diphenhydrAMINE 50 MG/1 ML VIAL IV ONE ×3 (10:18→12:54)
[2024-11-01] MEDS: ONDANSETRON 4 MG/2 ML VIAL IV ONE ×3 (10:19→12:55)
[2024-11-01] MEDS: HYDROMORPHONE 1 MG/1 ML DISP.SYRIN IV ONE ×3 (10:19→12:55)
[2024-11-01 10:24] LABS: PLATELET COUNT (AUTO) 326 K/uL (152-348); RED CELL DISTRIBUTION WIDTH 26.6 % (12.1-16.2); WHITE BLOOD COUNT (AUTO) 8.5 K/uL (3.6-10.2)
[2024-11-01 10:26] LABS: RED BLOOD CELL COUNT(AUTO) 2.19 MIL/uL (4.06-5.63)
[2024-11-01] MEDS: KETOROLAC TROMETHAMINE 15 MG INJ IVP ONE ×3 (10:27→12:55)
[2024-11-01 10:42] LABS: ASPARTATE AMINOTRANSFERASE 104 U/L (15-37); CREATININE 0.8 mg/dL (0.6-1.3); SODIUM SERUM 143 mmol/L (136-145); TOTAL PROTEIN, SERUM 7.2 g/dL (6.4-8.2); UREA NITROGEN, BLOOD 6 mg/dL (7-18)
[2024-11-01] MEDS: IV NORMAL SALINE 1000 ML BAG IV ONE (11:14)
[2024-11-01 11:17] LABS: EOSINOPHILS % (MANUAL) 4 % (0-8); LYMPHOCYTES % (MANUAL) 42 % (20-40); MONOCYTES % (MANUAL) 6 % (2-10); NEUTROPHILS % (MANUAL) 48 % (42-75); NUCLEATED RED BLOOD CELLS 5.0 /100WBC; PLATELET ESTIMATE ADEQUATE
[2024-11-01 14:08] VITALS: BP 117/24; O2SAT 99
== END 2024-11-01 14:09 | disposition home or self-care (01) ==
LOC: ER 09:49
DX: M79.10 Myalgia, unspecified site (principal); F11.20 Opioid dependence, uncomplicated; G89.29 Other chronic pain; Z90.49 Acquired absence of other specified parts of digestive tract; Z86.2 Personal history of diseases of the blood and blood-forming organs and certain disorders involving the immune mechanism; Z91.014 Allergy to mammalian meats; Z60.2 Problems related to living alone
CPT/HCPCS: 96374; 96375; 96361; 80076; 80048; 83880; 85007; 85027; 85044; 85730; 84484; 36415; 96376; 80503; 99284; J1885 ×2; J1200 ×3; J2405 ×3; J1171 ×3; J7040 ×2; 70030-TC; A4606; A4663

== ENCOUNTER 2024-11-02 07:07 | Emergency (ER) | payer OTHER ==
[~2024-11-02] VITALS: Ht 175.3 cm; Wt 68.0 kg
[2024-11-02] MEDS ORDERED: HYDROMORPHONE 2 MG/1 ML DISP.SYRIN ONE ×2 (07:51→09:06)
[2024-11-02] MEDS ORDERED: diphenhydrAMINE 50 MG/1 ML VIAL ONE ×2 (07:51→09:06)
[2024-11-02] MEDS: diphenhydrAMINE 50 MG/1 ML VIAL IM ONE ×2 (07:57→09:10)
[2024-11-02] MEDS: HYDROMORPHONE 1 MG/1 ML DISP.SYRIN IM ONE ×2 (07:57→09:12)
[2024-11-02 09:13] VITALS: BP 124/72; O2SAT 98
== END 2024-11-02 09:18 | disposition left against medical advice (07) ==
LOC: ER 07:07
DX: F11.20 Opioid dependence, uncomplicated (principal); D57.1 Sickle-cell disease without crisis; G89.29 Other chronic pain; M79.10 Myalgia, unspecified site; Z90.49 Acquired absence of other specified parts of digestive tract; Z87.39 Personal history of other diseases of the musculoskeletal system and connective tissue; Z91.014 Allergy to mammalian meats; Z60.2 Problems related to living alone
CPT/HCPCS: 99284; 96372 ×2; J1200 ×2; J1171 ×2; A4606; A4663

== ENCOUNTER 2024-11-04 07:40 | Inpatient (IN) | payer MEDICAID, OTHER ==
[~2024-11-04] VITALS: Ht 172.7 cm; Wt 68.5 kg
[2024-11-04] MEDS ORDERED: ONDANSETRON 4 MG/2 ML VIAL ONE ×2 (07:59→10:14)
[2024-11-04] MEDS ORDERED: diphenhydrAMINE 50 MG/1 ML VIAL ONE ×2 (07:59→10:14)
[2024-11-04] MEDS ORDERED: KETOROLAC TROMETHAMINE 15 MG INJ ONE (07:59)
[2024-11-04] MEDS ORDERED: HYDROMORPHONE 2 MG/1 ML DISP.SYRIN ONE ×3 (07:59→10:14)
[2024-11-04] MEDS: HYDROMORPHONE 1 MG/1 ML DISP.SYRIN IV ONE ×3 (08:05→10:19)
[2024-11-04] MEDS: diphenhydrAMINE 50 MG/1 ML VIAL IV ONE ×2 (08:05→10:19)
[2024-11-04] MEDS: ONDANSETRON 4 MG/2 ML VIAL IV ONE ×2 (08:06→10:21)
[2024-11-04] MEDS: KETOROLAC TROMETHAMINE 15 MG INJ IVP ONE (08:06)
[2024-11-04] MEDS: IV NS 1000 ML 1,000 ML IV ONE ×2 (08:13→08:16)
[2024-11-04 08:17] LABS: PLATELET COUNT (AUTO) 323 K/uL (152-348); RED CELL DISTRIBUTION WIDTH 26.8 % (12.1-16.2); WHITE BLOOD COUNT (AUTO) 10.9 K/uL (3.6-10.2)
[2024-11-04 08:18] LABS: RED BLOOD CELL COUNT(AUTO) 2.19 MIL/uL (4.06-5.63)
[2024-11-04 08:26] LABS: CREATININE 0.9 mg/dL (0.6-1.3); SODIUM SERUM 146.0 mmol/L (136-145); UREA NITROGEN, BLOOD 6.0 mg/dL (7-18)
[2024-11-04 08:32] LABS: ASPARTATE AMINOTRANSFERASE 122.0 U/L (15-37); TOTAL PROTEIN, SERUM 7.5 g/dL (6.4-8.2)
[2024-11-04] MEDS ORDERED: HYDR-3980 PO (08:45)
[2024-11-04] MEDS ORDERED: OXYC30TA2 PO (08:45)
[2024-11-04 08:56] LABS: NUCLEATED RED BLOOD CELLS 2.0 /100WBC
[2024-11-04 08:57] LABS: BASOPHILS % (MANUAL) 1 % (0-2); EOSINOPHILS % (MANUAL) 6 % (0-8); LYMPHOCYTES % (MANUAL) 33 % (20-40); MONOCYTES % (MANUAL) 10 % (2-10); NEUTROPHILS % (MANUAL) 50 % (42-75); PLATELET ESTIMATE ADEQUATE
[2024-11-04] MEDS ORDERED: MAGNESIUM HYDROXIDE 30 ML LIQUID UDC PO PRN (09:45)
[2024-11-04 10:32] VITALS: BP 129/81
[2024-11-04 11:06] VITALS: BP 109/63; TEMP 97.6; O2SAT 97
[2024-11-04] MEDS: IV D5W 1000ML 1,000 ML IV ONE (11:47)
[2024-11-04] MEDS: HYDROMORPHONE 1 MG/1 ML DISP.SYRIN IV PRN (13:34)
[2024-11-04 15:49] VITALS: BP 123/73; TEMP 97.8; O2SAT 97
[2024-11-04] MEDS: diphenhydrAMINE 25 MG CAP PO PRN (15:56)
[2024-11-04 16:53] VITALS: O2SAT 97
[2024-11-04] MEDS: HYDROMORPHONE 2 MG/1 ML DISP.SYRIN IV PRN (19:09)
[2024-11-04 19:20] VITALS: BP 129/65; TEMP 97.6; O2SAT 98
[2024-11-05] MEDS: ONDANSETRON 4 MG/2 ML VIAL IV PRN (05:34)
[2024-11-05 06:04] VITALS: BP 121/71; TEMP 97.5; O2SAT 97
[2024-11-05] MEDS: PANTOPRAZOLE SODIUM 40 MG TABLET.DR PO SCH (06:52)
[2024-11-05 07:07] LABS: PLATELET COUNT (AUTO) 266 K/uL (152-348); RED CELL DISTRIBUTION WIDTH 25.9 % (12.1-16.2); WHITE BLOOD COUNT (AUTO) 12.2 K/uL (3.6-10.2)
[2024-11-05 07:14] LABS: RED BLOOD CELL COUNT(AUTO) 1.97 MIL/uL (4.06-5.63)
[2024-11-05 07:23] LABS: CREATININE 0.7 mg/dL (0.6-1.3); SODIUM SERUM 145 mmol/L (136-145); UREA NITROGEN, BLOOD 7 mg/dL (7-18)
[2024-11-05] MEDS: ACETAMINOPHEN 325 MG TABLET PO PRN (08:12)
[2024-11-05] MEDS: FOLIC ACID 1 MG TABLET PO SCH (08:13)
[2024-11-05 08:48] LABS: EOSINOPHILS % (MANUAL) 2 % (0-8); LYMPHOCYTES % (MANUAL) 25 % (20-40); MONOCYTES % (MANUAL) 7 % (2-10); NEUTROPHILS % (MANUAL) 66 % (42-75)
[2024-11-05 08:49] LABS: NUCLEATED RED BLOOD CELLS 1.0 /100WBC
[2024-11-05] MEDS: IV LACTATED RINGERS SOLUTION 1,000 ML IV PRN (09:24)
[2024-11-05 11:37] VITALS: BP 128/53; TEMP 97.8; O2SAT 98
[2024-11-05 12:10] VITALS: O2SAT 97
[2024-11-05] MEDS: MAGNESIUM OXIDE 400 MG TABLET PO ONE (13:51)
[2024-11-05 15:37] VITALS: BP 115/68; TEMP 98.1; O2SAT 100
[2024-11-05] MEDS: METOCLOPRAMIDE HCL 10 MG/2 ML VIAL IV PRN (18:54)
[2024-11-05 19:15] VITALS: BP 136/71; TEMP 99.6; O2SAT 92
[2024-11-06 05:46] VITALS: O2SAT 97
[2024-11-06 07:16] VITALS: BP 100/57; TEMP 98.2; O2SAT 96
[2024-11-06 07:35] LABS: ASPARTATE AMINOTRANSFERASE 110 U/L (15-37); CREATININE 0.7 mg/dL (0.6-1.3); SODIUM SERUM 137 mmol/L (136-145); TOTAL PROTEIN, SERUM 6.8 g/dL (6.4-8.2); UREA NITROGEN, BLOOD 8 mg/dL (7-18)
[2024-11-06 07:40] LABS: PLATELET COUNT (AUTO) 246 K/uL (152-348); RED BLOOD CELL COUNT(AUTO) 2.03 MIL/uL (4.06-5.63); RED CELL DISTRIBUTION WIDTH 24.9 % (12.1-16.2); WHITE BLOOD COUNT (AUTO) 11.0 K/uL (3.6-10.2)
[2024-11-06] MEDS: HYDROCODONE/APAP 10-325 MG TABLET PO PRN (09:13)
[2024-11-06] MEDS: MAGNESIUM OXIDE 400 MG TABLET PO ONE (10:36)
[2024-11-06] MEDS: METOCLOPRAMIDE HCL 10 MG/2 ML VIAL IV PRN (10:39)
[2024-11-06 11:53] VITALS: BP 135/51; TEMP 98; O2SAT 96
[2024-11-06 16:07] VITALS: BP 130/65; TEMP 97.9; O2SAT 94
[2024-11-06 19:00] VITALS: BP 118/60; TEMP 98.7; O2SAT 95
[2024-11-07 04:00] VITALS: BP 112/62; TEMP 99.3; O2SAT 94
[2024-11-07 06:48] LABS: PLATELET COUNT (AUTO) 250 K/uL (152-348); RED CELL DISTRIBUTION WIDTH 24.5 % (12.1-16.2); WHITE BLOOD COUNT (AUTO) 15.6 K/uL (3.6-10.2)
[2024-11-07 07:06] LABS: CREATININE 0.7 mg/dL (0.6-1.3); SODIUM SERUM 141 mmol/L (136-145); UREA NITROGEN, BLOOD 9 mg/dL (7-18)
[2024-11-07 07:18] LABS: RED BLOOD CELL COUNT(AUTO) 2.08 MIL/uL (4.06-5.63)
[2024-11-07] MEDS: MAGNESIUM OXIDE 400 MG TABLET PO SCH (11:23)
[2024-11-07 12:00] VITALS: BP 123/61; TEMP 98.2; O2SAT 92
[2024-11-07 15:39] LABS: IRON, SERUM 193 ug/dL (50-175)
[2024-11-07 16:00] VITALS: BP 122/65; TEMP 98.2; O2SAT 99
[2024-11-07 16:29] VITALS: BP 122/65; TEMP 98
[2024-11-07 16:50] VITALS: BP 131/75; TEMP 98.1
[2024-11-07 19:34] VITALS: BP 141/67; TEMP 98.3; O2SAT 96
[2024-11-08 06:07] VITALS: BP 111/50; TEMP 98.2; O2SAT 95
[2024-11-08 07:24] LABS: CREATININE 0.6 mg/dL (0.6-1.3); SODIUM SERUM 139 mmol/L (136-145); UREA NITROGEN, BLOOD 8 mg/dL (7-18)
[2024-11-08 07:29] LABS: PLATELET COUNT (AUTO) 213 K/uL (152-348); RED CELL DISTRIBUTION WIDTH 23.8 % (12.1-16.2); WHITE BLOOD COUNT (AUTO) 14.6 K/uL (3.6-10.2)
[2024-11-08 07:35] LABS: RED BLOOD CELL COUNT(AUTO) 2.27 MIL/uL (4.06-5.63)
[2024-11-08 11:06] LABS: EOSINOPHILS % (MANUAL) 5 % (0-8); LYMPHOCYTES % (MANUAL) 26 % (20-40); MONOCYTES % (MANUAL) 9 % (2-10); NEUTROPHILS % (MANUAL) 60 % (42-75)
[2024-11-08 11:07] LABS: PLATELET ESTIMATE ADEQUATE
== END 2024-11-08 09:42 | disposition home or self-care (01) | DRG 662 ==
LOC: ER 07:40 → MEDSURG3 10:39
PROVIDERS: ADMIT Nurse Practitioner Family
PROC: 30233N1 Transfusion of Nonautologous Red Blood Cells into Peripheral Vein, Percutaneous Approach (ICD-10-PCS; principal; 2024-11-04)
DX: D57.00 Hb-SS disease with crisis, unspecified (principal); E87.0 Hyperosmolality and hypernatremia; E80.6 Other disorders of bilirubin metabolism; E86.0 Dehydration; G89.4 Chronic pain syndrome; Z90.49 Acquired absence of other specified parts of digestive tract; D63.8 Anemia in other chronic diseases classified elsewhere; Z79.891 Long term (current) use of opiate analgesic
CPT/HCPCS: 36415; 70030-TC; 71045; 83550; 83735; 84100; 85025; 86850; 86870; 86900; 86901; 86920; A4606; A4663; G0378; J1171; J1200; J1885; J2405; J2765; J7040; J7070; J7120; P9016; Q0161; Q0163